=== PATIENT | female | born 2000 | race Caucasian/White ===

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

== ENCOUNTER 2021-07-12 13:15 | Outpatient (CLI) | payer OTHER, SELFPAY ==
--- NOTE | 2021-07-12 13:22 | CT_ITS ---
STUDY: CT SOFT TISSUE NECK WITH CONTRAST REASON FOR EXAM: Female, 21 years old. History of bilateral neck swelling. Difficulty swallowing. RADIATION DOSAGE (If Supplied By Facility): CTDIvol = ( 20.81 ) mGy, DLP = ( 530.33 ) mGycm TECHNIQUE: The patient was scanned in a multi-detector CT scanner. High resolution transaxial imaging was performed following intravenous administration of IV 100mL Isovue-300. Sagittal and coronal images were reconstructed. Individualized dose optimization techniques were used for this CT. COMPARISON: None. FINDINGS: Normal bilateral parotid glands. Normal bilateral rn telehealth spaces. Normal bilateral parapharyngeal spaces. Normal bilateral carotid spaces. Small benign appearing submandibular lymph nodes. Normal bilateral sublingual and submandibular glands and spaces. Normal visualized nasopharynx. Normal retropharyngeal space. Normal perivertebral space. Normal visualized bilateral faucial tonsils. The visualized tongue, tongue base and oropharynx are normal. The visualized cervical lymph nodes (levels I-) are within normal size limits, and maintain normal morphology. There is no demonstrated solid or cystic mass lesion. There is no abnormal contrast enhancement. Normal epiglottis, bilateral vallecula and hypopharynx. The pre-epiglottic and paraglottic adipose spaces are normal. Normal visualized bilateral piriform sinuses, aryepiglottic folds, vocal cords, and arytenoid-cricoid articulations. Normal subglottic trachea. Normal bilateral lobes of the thyroid gland. Normal visualized pulmonary apices. Normal visualized paranasal sinuses. Normal visualized cervical spine. CT/Soft Tissue Neck WITH Contrast IMPRESSION: Normal enhanced CT examination of the soft tissues of the neck. Electronically Signed: Yazan Washington MD at 13:48 EDT ,
== END 2021-07-12 23:59 | disposition home or self-care (01) ==
LOC: CT 13:19
PROVIDERS: PCP Family Medicine; Referring Provider Otolaryngology; Visit Provider Otolaryngology
DX: R22.1 Localized swelling, mass and lump, neck (principal)
CPT/HCPCS: 70491; Q9967

== ENCOUNTER → 2021-09-15 | Outpatient (CLI) | payer OTHER, SELFPAY ==
[2021-09-15 15:29] LABS: Absolute Lymphocyte Count 0.99 X10^3/uL (0.83-4.51); Absolute Neutrophil Count 3.7 X10^3/uL (2.0-7.7); Basophil# 0.03 X10^3/uL; Basophil% 0.5 % (0-1); Eosinophil# 0.22 X10^3/uL; Hematocrit 40.8 % (37-47); Hemoglobin 13.7 g/dL (12.0-15.0); Lymphocyte # 0.99 X10^3/ul (0.83-4.51); Mean Corp Hgb Conc 33.6 g/dL (32-36); Mean Corpuscular Hgb 30.6 pg (27.0-32.0); Mean Corpuscular Volume 91.3 fL (81-99); Mean Platelet Vol. 10.8 fl (6.2-12.0); Monocyte# 0.54 X10^3/uL; Monocyte% 9.8 % (0-10); NRBC Flagged by Analyzer 0 % (0-5); Neutrophil # 3.71 X10^3/uL (2.7-7.7); Neutrophil % 67.3 % (47-70); Platelet Count 248 K/mm3 (150-450); RBC Distribution Width SD 40.2 fl (35.1-43.9); Red Blood Count 4.47 M/mm3 (4.2-5.4); White Blood Count 5.5 K/mm3 (4.4-11.0)
== END | disposition home or self-care (01) ==
LOC: MTLAB 11:32
PROVIDERS: PCP Family Medicine; Referring Provider Family Medicine; Visit Provider Family Medicine
DX: K64.9 Unspecified hemorrhoids (principal)
CPT/HCPCS: 36415; 85025

== ENCOUNTER 2021-09-19 03:24 | Emergency (ER) | payer OTHER, SELFPAY ==
[2021-09-19 03:26] VITALS: BP 142/86; PULSE 140; RESP 24; TEMP 39.1; O2SAT 95; BMI 35.4
[2021-09-19 03:32] VITALS: BP 122/75; PULSE 142; RESP 22; TEMP 38.8; O2SAT 95
--- NOTE | 2021-09-19 03:44 | EKG12_ITS ---
Test Reason : TACHYCARDIA Blood Pressure : / mmHG Vent. Rate : 128 BPM Atrial Rate : 128 BPM P-R Int : 124 ms QRS Dur : 084 ms QT Int : 290 ms P-R-T Axes : 052 048 -28 degrees QTc Int : 423 ms Sinus tachycardia T wave abnormality, consider inferior ischemia T wave abnormality, consider anterolateral ischemia Abnormal ECG Confirmed by KENAN HART, LEXII ([id number]), scientific editor CHRISTINE VALDEZ ([id number]) on 09/21/2021 1:15:21 PM Referred By: ALANIS Confirmed By:LEXII GRAYSON MD
--- NOTE | 2021-09-19 03:47 | EX.ED.DYSGE1 ---
HPI History of Present Illness Chief Complaint: Fever Informant: patient and parent Narrative Narrative: Patient comes in with chief complaint of cough fever and increased heart rate. Patient states she has had cough with bringing up a little bit of PHLEGM for about a month. No hemoptysis. She has not been sick. Because of this cough, she has had 3 COVID test this week all of which have been negative. Her most recent was just yesterday. She does have vaccine and booster. No known exposures. She has had no travel surgery immobilization personal or family history of DVT or PE. She is not having chest pain or dyspnea despite her cough. She is on oral contraceptive. No leg pain or swelling. She did just take Tylenol at home about 30 years or so minutes ago. She admits she has not been drinking a lot. Her fever is really just occurred in the last 1 to 2 days. She states the volume of urine she has had is down for the last day likely because she was not drinking much. It also funk slightly. No flank pain. [facility] Medical History Abdominal pain Anxiety Congenital sucrase-isomaltase deficiency IBS (irritable bowel syndrome) Injury of head and neck Non-smoker Physical exam, pre-employment Seizure disorder Wears contact lenses Wears glasses Home Medications dicyclomine 10 mg capsule 20 mg PO BID PRN cap 09/30/20 [History Last Taken Unknown] drospirenone 3 mg-ethinyl estradiol 0.02 mg tablet 1 tab PO DAILY 09/30/20 [History Last Taken Unknown] polyethylene glycol 3350 17 gram/dose oral powder 17 g PO DAILY 09/30/20 [History Last Taken Unknown] sacrosidase 8,500 unit/mL oral solution 2 ml PO 6XD 09/30/20 [History Last Taken Unknown] levofloxacin 500 mg PO DAILY #10 tab 09/19/21 [Rx Last Taken Unknown] Allergy/AdvReac Type Severity Reaction Status Date / Time No Known Allergies Allergy Verified 11/06/20 06:30 Family History Grandfather Cancer COPD (chronic obstructive pulmonary disease) Asthma Diabetes Grandmother Cancer CAD (coronary artery disease) Hypertension Mother Cancer cervical precancerous cells Social History Smoking Status: Never smoker alcohol intake: never ROS ROS ED Constitutional Constitutional ED: Reports chills, fever(s) and subjective; Denies weight loss Eyes Eyes: Denies blurry vision ENT ENT ED: Denies rhinorrhea or sore throat Cardiovascular Cardiovascular: Reports racing heartbeat; Denies chest pain Respiratory/Chest Respiratory/Chest: Reports cough Gastrointestinal Gastrointestinal: Denies abdominal pain, nausea or vomiting Genitourinary Genitourinary ED: Reports dysuria and other Details: See history of present Musculoskeletal Musculoskeletal: Denies myalgias Integumentary Denies rash Neurologic Neurologic: Denies headache(s) or weakness Endocrine Endocrinology: Denies polydipsia or polyuria Allergic/Immunologic Allergic/Immunologic ED: Denies urticaria EXAM Physical Exam Const Vital Signs: 09/19/21 03:26 09/19/21 03:31 09/19/21 03:32 Temperature 102.3 F H 102 F H Temperature Source Oral Oral Pulse Rate 140 H 142 H Respiratory Rate 24 H 22 H Respiratory Effort Normal Non-Labored Respiratory Pattern Normal Blood Pressure 142/86 H 122/75 H Blood Pressure Mean 104 90 Pulse Ox 95 95 Oxygen Delivery Method Room Air Room Air 09/19/21 04:36 09/19/21 06:39 Temperature 98.9 F 98.9 F Temperature Source Oral Oral Pulse Rate 115 H 101 H Respiratory Rate 18 18 Respiratory Effort Respiratory Pattern Blood Pressure 112/70 107/70 Blood Pressure Mean 84 82 Pulse Ox 96 97 Oxygen Delivery Method Room Air Room Air Positive well nourished and well developed General Appearance ED: well developed and NAD; Negative for cyanotic or diaphoretic HEENT Reports dry mucous membranes Mouth ED: Yes dry mucous membranes Mouth: dry mucous membranes Eyes General Eye ED: Negative for pale conjunctiva or scleral icterus Neck no JVD Chest Wall inspection of chest normal Resp normal respiratory effort and clear to auscultation bilaterally Effort and Inspection: Negative for pain with movement Auscultation: Negative for rales, rhonchi or wheezes Cardio Rate: tachycardic GI normal to inspection, nondistended, normoactive bowel sounds and non-tender Palpation: soft Back/Spine no CVA tenderness Extremity normal to inspection Extremity Narrative: No cords, distended veins or asymmetry. No tenderness along the deep venous system General Extremety ED: Negative for edema or tenderness General Extremity: Negative for edema Neuro oriented x3 Sensorium / Orientation: alert Psych mental status grossly normal Skin no rashes or lesions noted and no wounds MDM MDM MDM Narrative Medical decision making narrative: Patient CBC is overall normal. Electrolytes are essentially unremarkable. Troponin is normal. Lactate is normal. Urine shows few leukocyte Estrace but no white cells. I do not think this is likely the cause of her fever. Patient was given Tylenol and IV fluids here. Her heart rates down to about 100 1005. She feels better. I talk with her about options. I am concerned because she has had a month of coughing. She is not really bringing up sputum. She does travel about 3 to 3-1/2 hours to school. She is on control. We did a CTA. This does not show pulmonary embolus but did show a masslike area of consolidation in the left lower lobe. There is a also some enlarged lymph nodes and questionable lymph node versus thymic mass. It was thought that this very well could be pneumonia but a mass or malignancy including lymphoma or germ cell tumor is not completely excluded. 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 They had evidently done stents for evaluation of the thyroid and thyroid scan along with blood work. Everything ended up normal. I explained to the patient and her father that with her fever cough and this finding we will treat for pneumonia. However, one of the most important parts of her visit is going to be follow-up. They need to make sure that the findings on the scan resolved with treatment. If not they need to look further as a malignancy or other process is not ruled out by the studies. Again I stated that even if she resolves and feels better she needs to 100% follow-up. They have a good primary physician that they can see. They will call this week. Lab Data Attestation: I reviewed the patient's lab results. Labs: Laboratory Results - last 24 hr 09/19/21 09/19/21 09/19/21 03:38 03:38 03:38 WBC 7.6 RBC 4.45 Hgb 13.7 Hct 39.7 MCV 89.2 MCH 30.8 MCHC 34.5 RDW Std Deviation 38.4 RDW Coeff of Etta 11.9 Plt Count 233 MPV 10.3 Immature Gran % (Auto) 0.300 Neut % (Auto) 69.3 Lymph % (Auto) 17.2 L Antelope % (Auto) 12.8 H Eos % (Auto) 0.1 Baso % (Auto) 0.3 Absolute Neuts (auto) 5.3 Absolute Lymphs (auto) 1.31 Nucleated RBC % 0 Sodium 136 Potassium 3.6 Chloride 104 Carbon Dioxide 24.0 Anion Gap 8 BUN 12 Creatinine 0.86 Estim Creat Clear Calc 97.68 Est GFR (MDRD) Af Amer 107 Est GFR (MDRD) Non-Af 89 BUN/Creatinine Ratio 13.9 Glucose 119 H Lactic Acid 0.9 Calcium 9.0 Troponin I High Sens 8 Urine Color Urine Clarity Urine pH Ur Specific [place] Urine Protein Urine Glucose (UA) Urine Ketones Urine Occult Blood Urine Nitrite Urine Bilirubin Urine Urobilinogen Ur Leukocyte Esterase Urine RBC Urine WBC Ur Squamous Epith Cells Urine Bacteria Urine Mucus 09/19/21 04:05 WBC RBC Hgb Hct MCV MCH MCHC RDW Std Deviation RDW Coeff of Etta Plt Count MPV Immature Gran % (Auto) Neut % (Auto) Lymph % (Auto) Antelope % (Auto) Eos % (Auto) Baso % (Auto) Absolute Neuts (auto) Absolute Lymphs (auto) Nucleated RBC % Sodium Potassium Chloride Carbon Dioxide Anion Gap BUN Creatinine Estim Creat Clear Calc Est GFR (MDRD) Af Amer Est GFR (MDRD) Non-Af BUN/Creatinine Ratio Glucose Lactic Acid Calcium Troponin I High Sens Urine Color Yellow Urine Clarity Clear Urine pH 7.0 Ur Specific [place] 1.015 Urine Protein 30 H Urine Glucose (UA) Normal Urine Ketones 5 H Urine Occult Blood 250 H Urine Nitrite Negative Urine Bilirubin Negative Urine Urobilinogen 1 H Ur Leukocyte Esterase 100 H Urine RBC 5-10 SEEN Urine WBC 0-5 SEEN Ur Squamous Epith Cells 0-5 SEEN Urine Bacteria 2+ Urine Mucus 0 SEEN Radiography Diagnostic Testing: Clinical Impression(s) from Imaging Studies Chest X-Ray 09/19/21 04:20 IMPRESSION: Normal chest x-ray. Electronically Signed: Cindy Cash MD at 5:03 EDT , Chest CTA 09/19/21 05:14 IMPRESSION: No evidence of pulmonary emboli. Masslike consolidation in the left lower lobe and adjacent smaller nodules possible pneumonia. Mass/malignancy is not excluded. Mediastinal and hilar adenopathy may be reactive, largest anterior mediastinal mass 2 cm mass. Other etiologies such as lymphoma, germ cell tumor not excluded. Electronically Signed: Cindy Cash MD at 6:32 EDT , Discharge Plan Triage Chief Complaint: Fever ED Provider: Jose R Andino Dx/Rx/DC Orders Clinical Impression: Pneumonia, Pulmonary mass Instructions: ED Pneumonia (Adult) Prescriptions: New levofloxacin [levofloxacin] 500 MG tablet 500 mg PO DAILY Qty: 10 RF: 0 No Action Sucraid 8,500 unit/mL solution 2 ml PO 6XD RF: 0 drospirenone-ethinyl estradiol [MORA (28)] 3-0.02 mg tablet 1 tab PO DAILY RF: 0 dicyclomine 10 mg capsule 20 mg PO BID PRN (Reason: IBS) RF: 0 polyethylene glycol 3350 [Miralax] 17 gram/dose powder 17 g PO DAILY RF: 0 Primary Care Provider: Pj Gregory Referrals: Pj Gregory MD [Primary Care Provider] - 1 Week Activity Restrictions/Additional Instructions: Call your doctor this week for follow-up. Even if you I have resolved symptoms, it is mandatory that you follow-up for repeat evaluation. There will likely be repeat imaging needed to recheck the changes seen on CAT scan. Disposition Disposition: Home, Self Care
[2021-09-19] MEDS: Ibuprofen 200 MG Tablet 400 MG PO (03:51)
[2021-09-19 03:58] LABS: Absolute Lymphocyte Count 1.31 X10^3/uL (0.83-4.51); Absolute Neutrophil Count 5.3 X10^3/uL (2.0-7.7); Basophil# 0.02 X10^3/uL; Basophil% 0.3 % (0-1); Eosinophil# 0.01 X10^3/uL; Eosinophils% 0.1 % (0-5); Hematocrit 39.7 % (37-47); Hemoglobin 13.7 g/dL (12.0-15.0); Lymphocyte # 1.31 X10^3/ul (0.83-4.51); Lymphocyte % 17.2 % (19-41); Mean Corp Hgb Conc 34.5 g/dL (32-36); Mean Corpuscular Hgb 30.8 pg (27.0-32.0); Mean Corpuscular Volume 89.2 fL (81-99); Mean Platelet Vol. 10.3 fl (6.2-12.0); Monocyte# 0.97 X10^3/uL; Monocyte% 12.8 % (0-10); NRBC Flagged by Analyzer 0 % (0-5); Neutrophil # 5.27 X10^3/uL (2.7-7.7); Neutrophil % 69.3 % (47-70); Platelet Count 233 K/mm3 (150-450); RBC Distribution Width CV 11.9 % (11.6-14.6); RBC Distribution Width SD 38.4 fl (35.1-43.9); Red Blood Count 4.45 M/mm3 (4.2-5.4); White Blood Count 7.6 K/mm3 (4.4-11.0)
[2021-09-19 04:15] LABS: Mucous, Urine 0 SEEN /hpf (<or=2+)
--- NOTE | 2021-09-19 04:20 | RAD_ITS ---
STUDY: X-RAY CHEST REASON FOR EXAM: Female, 21 years old. cough TECHNIQUE: PA and lateral. COMPARISON: None. FINDINGS: LUNGS: No consolidation. No pneumothorax. MEDIASTINUM: Unremarkable. CARDIAC SILHOUETTE: Not enlarged. BONES AND SOFT TISSUES: No acute abnormalities. RAD/Chest PA and Lateral IMPRESSION: Normal chest x-ray. Electronically Signed: Cindy Cash MD at 5:03 EDT ,
[2021-09-19 04:21] LABS: Color, Urine Yellow (Yellow); Glucose, Dipstick Normal (Normal); Ketone-Dipstick 5 mg/dl (Negative); Leukocyte Esterase-Dipstick 100 /ul (Negative); Nitrite-Dipstick Negative (Negative); Occult Blood-Urine 250 /ul (Negative); Protein-Dipstick 30 mg/dl (Negative); Specific Gravity, Urine 1.015 (1.002-1.030); Urine Bilirubin Dipstick Negative (Negative); Urine Clarity Clear (Clear); Urine Urobilinogen 1 mg/dl (Normal)
[2021-09-19 04:29] LABS: Bacteria 2+ /hpf (None Seen); Red Blood Cells-Urine 5-10 SEEN /hpf (0-5); Squamous Epithelial Cells - UA 0-5 SEEN /hpf (5-10); White Blood Cells 0-5 SEEN /hpf (0-5)
[2021-09-19 04:33] LABS: Anion Gap 8 (5-15); BUN 12 mg/dL (7-18); BUN/Creat Ratio 13.9 RATIO (10-20); Chloride 104 mmol/L (98-107); Creatinine, Serum 0.86 mg/dL (0.55-1.02); EST Glomerular Filtration Rate 89 mL/min (>60); Est Glom Filt Rate - Afr Amer 107 mL/min (>60); Estimated Creatinine Clearance 97.68 ml/min; Glucose 119 mg/dL (74-106); Potassium 3.6 mmol/L (3.5-5.1); Sodium Level 136 mmol/L (136-145); Troponin-I HS 8 pg/mL (3.0-54.0)
[2021-09-19 04:36] VITALS: BP 112/70; PULSE 115; RESP 18; TEMP 37.2; O2SAT 96
[2021-09-19 04:37] LABS: Lactic Acid 0.9 mmol/L (0.4-1.9)
--- NOTE | 2021-09-19 05:14 | CT_ITS ---
STUDY: CTA CHEST REASON FOR EXAM: Female, 21 years old. SOB, tachy RADIATION DOSAGE (If Supplied By Facility): CTDIvol = ( 15.00 ) mGy, DLP = ( 531.07 ) mGycm TECHNIQUE: The examination was performed with the intravenous administration of IV 100mL Isovue-370. Post-processing of the angiographic images was performed, with multiplanar reformation and 3D reconstruction. Individualized dose optimization techniques were used for this CT. COMPARISON: CT abdomen pelvis 04/29/2020. FINDINGS: LUNGS: There is a 2 x 1.6 x 2 cm masslike opacity in the left lower lobe with extensive surrounding groundglass opacity. Cluster of smaller nodules in the left lower lobe adjacent to the fissure. PLEURA: No pleural effusion. No pneumothorax. PULMONARY VESSELS: No pulmonary emboli identified. MEDIASTINUM: Enlarged lymph nodes in the mediastinum and hilar regions. The largest rounded soft tissue structure anterior mediastinum adjacent to the aortic arch 2 x 1.7 cm may be enlarged lymph node versus thymic mass. HEART: Not enlarged. AORTA/GREAT VESSELS: Thoracic aorta is normal caliber. No aneurysm or dissection. UPPER ABDOMEN: No acute findings. BONES/SOFT TISSUES: No acute findings. OTHER: None. CT/CTA Chest W/WO Contrast IMPRESSION: No evidence of pulmonary emboli. Masslike consolidation in the left lower lobe and adjacent smaller nodules possible pneumonia. Mass/malignancy is not excluded. Mediastinal and hilar adenopathy may be reactive, largest anterior mediastinal mass 2 cm mass. Other etiologies such as lymphoma, germ cell tumor not excluded. Electronically Signed: Cindy Cash MD at 6:32 EDT ,
[2021-09-19 06:39] VITALS: BP 107/70; PULSE 101; RESP 18; TEMP 37.2; O2SAT 97
[2021-09-19 07:02] VITALS: BP 113/80; PULSE 98; RESP 18; TEMP 36.7; O2SAT 98
[2021-09-19] MEDS: levoFLOXacin 750 MG Tablet PO (07:08)
== END 2021-09-19 07:55 | disposition home or self-care (01) ==
PROVIDERS: Emergency Provider Emergency Medicine; PCP Family Medicine; Visit Provider Emergency Medicine
DX: J18.9 Pneumonia, unspecified organism (principal); G40.909 Epilepsy, unspecified, not intractable, without status epilepticus; F41.9 Anxiety disorder, unspecified; K58.9 Irritable bowel syndrome, unspecified; Z79.899 Other long term (current) drug therapy; R91.8 Other nonspecific abnormal finding of lung field
CPT/HCPCS: 71046; 71275; 80048; 81001; 83605; 84484; 85025; 87040; 87086; 87088; 93005; 96360; 96361; 99285; J7030; Q9967; A4216

== ENCOUNTER → 2021-10-23 | Outpatient (CLI) | payer OTHER, SELFPAY ==
--- NOTE | 2021-10-23 09:47 | CT_ITS ---
INDICATION: f/u lung nodule EXAMINATION: CT CHEST WITHOUT CONTRAST - CT Chest W/O Contrast Injection TECHNIQUE: Helically acquired images were obtained of the chest. A radiation dose optimization technique was used for this scan. IV Contrast dosage and agent: None. COMPARISON: CT chest 09/19/2021. CT abdomen pelvis 03/28/2020. FINDINGS: LUNGS: There is minimal groundglass opacity in the left lower lobe with otherwise significantly decreased with near resolution of the masslike consolidation compared to the prior CT chest. The cluster of smaller nodules in the left lower lobe adjacent to the fissure, largest nodule 1.1 cm, not significantly changed. No new consolidation or mass. LARGE AIRWAYS: Unremarkable. PLEURA: No pleural effusion. No pneumothorax. MEDIASTINUM: The rounded soft tissue structure in the anterior mediastinum anterior to the aortic arch measures approximately 2 x 2 cm is likely related to the thymus, but the rounded margins suggest possible thymic hyperplasia or mass. This is unchanged. No other significant adenopathy, appears decreased although suboptimal without IV contrast. HEART: Not enlarged. AORTA/VESSELS: No aortic aneurysm. ESOPHAGUS: Unremarkable. with UPPER ABDOMEN: No acute findings. BONES/SOFT TISSUES: No acute abnormality. OTHER/LINES: None. CT/Chest without Contrast IMPRESSION: Near resolution of the left lower lobe masslike consolidation compared to the previous CT chest from 09/19/2021, with minimal residual groundglass opacity in the region. This likely was resolving pneumonia or other inflammatory process. Cluster of nodules in the left lower lobe adjacent to the fissure is unchanged, with largest nodule 1.1 cm. This may be postinflammatory, which is most likely in a patient of this age. Continued follow-up imaging is recommended in 3-6 months to ensure stability. Anterior mediastinal soft tissue fullness is unchanged and likely related to the thymus, possibly thymic hyperplasia cannot entirely exclude thymic mass. This could be further evaluated on follow-up CT, or MRI may be helpful. Electronically Signed: Cindy Cash MD at 4:11 EDT ,
== END | disposition home or self-care (01) ==
LOC: CT 09:46
PROVIDERS: PCP Family Medicine; Referring Provider Internal Medicine Critical Care Medicine; Visit Provider Internal Medicine Critical Care Medicine
DX: R91.1 Solitary pulmonary nodule (principal)
CPT/HCPCS: 71250

== ENCOUNTER → 2021-10-29 | Outpatient (CLI) | payer OTHER, SELFPAY ==
[2021-11-04 17:27] LABS: Gonococcus By Nucleic Acid AMP Negative (Negative)
== END | disposition home or self-care (01) ==
LOC: LABSPEC 11:26
PROVIDERS: PCP Family Medicine; Visit Provider Obstetrics & Gynecology
DX: Z11.3 Encounter for screening for infections with a predominantly sexual mode of transmission (principal)
CPT/HCPCS: 87491; 87591

== ENCOUNTER → 2022-04-05 | Outpatient (CLI) | payer OTHER, SELFPAY ==
--- NOTE | 2022-04-05 13:29 | CT_ITS ---
STUDY: CT CHEST WITHOUT CONTRAST REASON FOR EXAM: Female, 21 years old. Lung Nodule RADIATION DOSAGE (If Supplied By Facility): CTDIvol = ( 16.43 ) mGy, DLP = ( 611.86 ) mGycm TECHNIQUE: Transaxial imaging was performed without the administration of intravenous contrast material. Multiplanar coronal and sagittal images were reformatted. Individualized dose optimization techniques were used for this CT. COMPARISON: Comparison is made with prior study dated 10/23/2021. FINDINGS: CHEST Stable small benign appearing bilateral axillary lymph nodes. Persistent nodular densities in the anterior lateral aspect of the left lower lobe abutting the pleural surface as well as the left major fissure. The dominant nodule as increase in size as compared to prior study. It presently measures 13.6 mm x 14.2 mm. There is no demonstrated pleural abnormality. Normal heart and pericardium. Normal mediastinum. Stable appearance of the thymus remnant. Normal hilar regions. Normal unenhanced pulmonary arteries. Normal aorta arch and descending thoracic aorta. Normal osseous structures. There is no demonstrated abnormality of the visualized upper abdomen. CT/Chest without Contrast IMPRESSION: Persistent nodular density seen in the anterior lateral aspect of the left lower lobe abutting the left major fissure. The dominant nodular density has increased in size presently measuring 13.6 mm x 14.2 mm. Electronically Signed: Yazan Washington MD at 14:09 EST ,
== END | disposition home or self-care (01) ==
LOC: CT 13:28
PROVIDERS: PCP Family Medicine; Visit Provider Internal Medicine Critical Care Medicine
DX: R91.1 Solitary pulmonary nodule (principal)
CPT/HCPCS: 71250

== ENCOUNTER → 2022-04-21 | Outpatient (CLI) | payer OTHER, SELFPAY ==
[2022-04-21 15:39] LABS: Hematocrit 40.4 % (37-47); Hemoglobin 14.1 g/dL (12.0-15.0); Mean Corp Hgb Conc 34.9 g/dL (32-36); Mean Corpuscular Hgb 31.3 pg (27.0-32.0); Mean Corpuscular Volume 89.6 fL (81-99); Mean Platelet Vol. 11.2 fl (6.2-12.0); Platelet Count 303 K/mm3 (150-450); RBC Distribution Width CV 12.3 % (11.6-14.6); RBC Distribution Width SD 40.2 fl (35.1-43.9); Red Blood Count 4.51 M/mm3 (4.2-5.4); White Blood Count 4.2 K/mm3 (4.4-11.0)
[2022-04-21 16:11] LABS: Anion Gap 7 (5-15); BUN 18 mg/dL (7-18); BUN/Creat Ratio 21.7 RATIO (10-20); Calcium,Total 9.2 mg/dL (8.5-10.1); Chloride 108 mmol/L (98-107); Cholesterol 147 mg/dL (200); Creatinine, Serum 0.83 mg/dL (0.55-1.02); EST Glomerular Filtration Rate 92 mL/min (>60); Est Glom Filt Rate - Afr Amer 112 mL/min (>60); Glucose 90 mg/dL (74-106); High Density Lipoprotein 54 mg/dL; Potassium 4.5 mmol/L (3.5-5.1); Sodium Level 140 mmol/L (136-145); Thyroid Stim Hormone (TSH) 1.26 uIU/mL (0.358-3.74); Triglycerides 91 mg/dL; Very Low Density Lipoprotein 18 mg/dL (5-40)
== END | disposition home or self-care (01) ==
LOC: MTLAB 11:25
PROVIDERS: PCP Family Medicine; Referring Provider Family Medicine; Visit Provider Family Medicine
DX: Z00.00 Encounter for general adult medical examination without abnormal findings (principal); R53.83 Other fatigue
CPT/HCPCS: 36415; 80048; 80061; 84443; 85027

== ENCOUNTER → 2022-05-11 | Outpatient (CLI) | payer OTHER, SELFPAY ==
--- NOTE | 2022-05-11 08:00 | PET_ITS ---
EXAMINATION: FDG PET-CT INDICATIONS: A 21-year-old female with history of pulmonary nodularity. COMPARISON EXAMINATION: CT of the chest report dated 04/05/22 INDEX LESION SIZE SUV INTERPRETATION Left lower lung, left lower lobe 25.2-mm 1.8 Quantitative criteria for viable neoplasm are not fulfilled Left thoracic perihilum, subcarinal mediastinum 16.4-mm (largest) 4.1 (max) May necessitate histopathologic investigation secondary to the quantitative degree of uptake Pancreatic head-uncinate process 33.5 x 23.4-mm 3.[address] of the abdomen and pelvis with oral and intravenous contrast to confirm the presence of morphologic abnormality Left hemipelvis 15.4-mm 6.9 Fulfills quantitative criteria for viable neoplasm, histopathologic analysis may be indicated NON-INDEX LESION SIZE SUV INTERPRETATION V-shaped anterior mediastinum 2.3 Most consistent with normal thymus physiologic tracer activity TECHNIQUE: Following the intravenous administration of 13.29 mCi of F-18 deoxyglucose via the right antecubital fossa, multiplanar image acquisitions of the neck, chest, abdomen and pelvis to level of mid thigh, obtained at one hour post radiopharmaceutical administration contemporaneously interpreted with the current CT of the neck, chest, abdomen and pelvis, to level of mid thigh, dated 05/11/[address] of the chest report dated 04/05/22 reveals: BLOOD GLUCOSE LEVEL:?? 81 mg/dl?HEIGHT:?66 inches?WEIGHT: 218 lbs. FINDINGS: Head/Neck: There is no evidence of abnormal increased glucose metabolism in the pharyngeal mucosal space, parapharyngeal space, bilateral-lateral and anterior neck, hypopharynx and distribution of the laryngeal structures. The visualized portion of the cerebral cortical-subcortical structures demonstrate symmetric and preserved glucose metabolism. CHEST: Enhanced FDG uptake is noted in the left lower lung field, left lower lobe generating a calculated maximal standard uptake value of 1.8. The maximal axial diameter of the metabolic, morphologic abnormality is 25.2-mm. Facilitated FDG uptake is noted in the left thoracic perihilum and subcarinal mediastinum and involving lymph node stations 7 and 10L, respectively. The calculated maximal standard uptake value is 4.1. The maximal axial diameter of the metabolic, morphologic abnormality is 16.4-mm. An inverted V-shape increase in uptake is noted in the anterior mediastinum with a calculated maximal standard uptake value of 2.3, most consistent with visualized visualization of thyroid tissue. (Yony Slade, Clinical Positron Emission Tomography, [employer], [place], [place] 2001). Prominent radiopharmaceutical concentration is identified in the left ventricular myocardium commensurate with the [place]. Pertinent chest CT findings are as follows. Bilateral axillary soft tissue densities are non-glucose avid. Additional parenchymal densities-nodules are defined in the bilateral hemithorax expressing increased FDG uptake. Abdomen/Pelvis: There is an increase in radiopharmaceutical concentration appearing evident in the right upper abdomen in the region of the pancreatic head-uncinate process. The calculated maximal standard uptake value is 3.0. The maximal axial diameter of the visualized metabolic, morphologic abnormality is approximately 33.5-mm (transverse) x 23.4-mm (AP). Facilitated FDG uptake is noted in the left hemipelvis in the region of the internal iliac lymph node basin. The calculated maximal standard uptake value is 6.9. The maximal axial diameter is 15.4-mm. Normal physiologic distribution of the radiopharmaceutical is apparent in the hepatic (3.9) and splenic parenchyma, both renal units, bladder and visualized intestinal tract. Pertinent abdomen and pelvis CT findings are as follows. An intrauterine contraceptive device is defined. Right-left inguinal soft tissue densities are non-glucose avid. Skeletal: There are no well-defined sclerotic-lytic changes manifest on review of the appendicular-axial skeletal structures. PET/PET/CT Tumor Base -Thigh Init IMPRESSION: 1. The increase in FDG concentration defined in the left lower lung, left lower lobe does not fulfill quantitative criteria for viable neoplasm with single point technique. (Landers et al, Annals of Internal Medicine, 138:724, 2003). 2. Metabolic and/or anatomic stability may be ensured in the left hemithorax pulmonary parenchymal abnormality with repeat FDG PET-CT and/or CT of the thorax in 3-6 months if clinically indicated. (Xiu, Journal of Nuclear Medicine 45:88, P2004 Darian, Seminars in Thoracic and Cardiovascular Surgery 14:292, 2002). 3. Increased radiopharmaceutical concentration noted in the left thoracic perihilum and subcarinal mediastinum may warrant histopathologic investigation if clinical indicated secondary to the quantitative degree of uptake. 4. Facilitated uptake manifest in the V-shaped anterior mediastinum does not fulfill quantitative criteria for neoplasia and most likely represents thymus concentration of the radiopharmaceutical (Yony Slade, Clinical Positron Emission Tomography, [employer], [place], [place] 2001). 5. Enhanced tracer uptake noted in the region of the pancreatic head uncinate process warrants further investigation with CT of the abdomen and pelvis with oral and intravenous contrast secondary to the quantitative degree of uptake. 6. Accentuated glucose metabolism manifest in the left hemipelvis in the internal iliac lymph node basin fulfills quantitative criteria for viable neoplasm with single point technique. Histopathologic analysis may be indicated. Electronic Signature Dinesh Hernández D.O. Accurate Quantification of SUVs for this report are calculated using the exclusive [employer] Technology. ([place]. Patent No. [id number] [id number] B2 [phone] [place] patent [phone]). Standardization and correction of the FDG SUV metric via ACCUQUAN technology allow for vendor non-specific objective quantitative examination comparison and optimization of the sensitivity and specificity of the FDG PET-CT examination. Electronically Signed: Dinesh Hernández, at 18:33 EST ,
== END | disposition home or self-care (01) ==
PROVIDERS: PCP Family Medicine; Referring Provider Internal Medicine Critical Care Medicine; Visit Provider Internal Medicine Critical Care Medicine
DX: R91.1 Solitary pulmonary nodule (principal)
CPT/HCPCS: 78815; A9552

== ENCOUNTER → 2022-05-17 | Outpatient (CLI) | payer OTHER, SELFPAY ==
--- NOTE | 2022-05-17 12:44 | CT_ITS ---
STUDY: CT ABDOMEN AND PELVIS WITH CONTRAST REASON FOR EXAM: Female, 21 years old. Abnormal pet scan. Pancreatic abnormality. RADIATION DOSAGE (If Supplied By Facility): CTDIvol = ( 22.91 ) mGy, DLP = ( 1168.25 ) mGycm TECHNIQUE: Transaxial images were obtained from the dome of the diaphragm to the symphysis pubis with oral contrast. Oral and amp; IV Readi-CAT and amp; 100mL Isovue-300 was administered. Sagittal and coronal images were reconstructed. Individualized dose optimization techniques were used for this CT. COMPARISON: Comparison is made with prior CT scan abdomen and pelvis dated 03/28/[address] scan of the chest dated 04/05/2022. FINDINGS: Stable 1.3 cm noncalcified nodule in the peripheral lateral aspect of the left lower lobe. The visualized portions of the heart are within normal limits. Normal liver. Normal gallbladder and extrahepatic biliary system. Normal spleen. Normal pancreas. Normal bilateral adrenal glands. Normal right kidney. Normal left kidney. Normal visualized stomach. Normal small intestine. Scattered sigmoid diverticula. The appendix is visualized and appears normal. Normal abdominal aorta. Normal inferior vena cava. There is borderline retroperitoneal lymphadenopathy with enlarged nodes no greater than 10mm in the short axis diameter. Normal urinary bladder. IUD is seen in the uterus. Normal abdominal wall. Normal osseous structures. CT/Abdomen/Pelvis WITH Contrast IMPRESSION: Stable 1.3 cm noncalcified nodule in the peripheral lateral aspect of the left lower lobe. Scattered sigmoid diverticula. IUD is seen within the uterus. Electronically Signed: Yazan Washington MD at 14:41 EST ,
== END | disposition home or self-care (01) ==
LOC: CT 12:43
PROVIDERS: PCP Family Medicine; Visit Provider Family Medicine
DX: R93.3 Abnormal findings on diagnostic imaging of other parts of digestive tract (principal)
CPT/HCPCS: 74177; Q9967

== ENCOUNTER → 2022-07-15 | Outpatient (CLI) | payer OTHER, SELFPAY ==
[2022-07-15 10:15] LABS: Absolute Lymphocyte Count 1.77 X10^3/uL (0.83-4.51); Absolute Neutrophil Count 3.7 X10^3/uL (2.0-7.7); Basophil# 0.03 X10^3/uL; Basophil% 0.5 % (0-1); Eosinophil# 0.11 X10^3/uL; Eosinophils% 1.8 % (0-5); Hematocrit 39.9 % (37-47); Hemoglobin 13.7 g/dL (12.0-15.0); Lymphocyte # 1.77 X10^3/ul (0.83-4.51); Lymphocyte % 28.3 % (19-41); Mean Corp Hgb Conc 34.3 g/dL (32-36); Mean Corpuscular Hgb 30.5 pg (27.0-32.0); Mean Corpuscular Volume 88.9 fL (81-99); Mean Platelet Vol. 10.7 fl (6.2-12.0); Monocyte# 0.58 X10^3/uL; Monocyte% 9.3 % (0-10); NRBC Flagged by Analyzer 0 % (0-5); Neutrophil # 3.74 X10^3/uL (2.7-7.7); Neutrophil % 59.8 % (47-70); Platelet Count 263 K/mm3 (150-450); RBC Distribution Width SD 38.5 fl (35.1-43.9); Red Blood Count 4.49 M/mm3 (4.2-5.4); White Blood Count 6.3 K/mm3 (4.4-11.0)
[2022-07-15 10:21] LABS: Erythrocyte Sedimentation Rate 10 mm/hr (0-30)
[2022-07-15 10:46] LABS: ALB/GLOB Ratio 1.1 RATIO (0.9-2.4); AST(SGOT) 22 U/L (15-37); Alanine Aminotransfer ALT/SGPT 52 U/L (13-56); Albumin, Serum 3.9 g/dL (3.2-5.0); Alkaline Phosphatase 76 U/L (45-117); Anion Gap 9 (5-15); BUN 12 mg/dL (7-18); BUN/Creat Ratio 16.8 RATIO (10-20); CRP 5.01 mg/L (0.0-3.0); Calcium,Total 9.1 mg/dL (8.5-10.1); Chloride 107 mmol/L (98-107); Creatinine, Serum 0.72 mg/dL (0.55-1.02); EST Glomerular Filtration Rate 109 mL/min (>60); Est Glom Filt Rate - Afr Amer 132 mL/min (>60); GGTP 26 U/L (5-55); Globulin 3.4 g/dL (2.2-4.2); Glucose 105 mg/dL (74-106); LDH 187 U/L (84-246); Potassium 3.8 mmol/L (3.5-5.1); Protein, Total 7.3 g/dL (6.4-8.2); Sodium Level 140 mmol/L (136-145)
[2022-07-15 11:42] LABS: Insulin 38.1 mU/L (2.6-37.6)
[2022-07-18 16:09] LABS: Endomysial Antibody IgA Negative (Negative)
[2022-07-18 17:44] LABS: Immunoglobulin A 144 mg/dL (87-352); t-Transglutaminase IgA <2 U/mL (0-3)
[2022-07-18 18:07] LABS: Albumin 3.9 g/dL (2.9-4.4); Alpha-1-Globulins 0.2 g/dL (0.0-0.4); Alpha-2-Globulins 0.9 g/dL (0.4-1.0); Cytoplasmic Ab (C-ANCA) <1:20 titer (Neg:<1:20); Gamma Globulin 0.9 g/dL (0.4-1.8); IgG, Quant 770 mg/dL (586-1602); Immunoglobulin A 138 mg/dL (87-352); Immunoglobulin E 71 IU/mL (6-495); Immunoglobulin G, Subclass 1 394 mg/dL (248-810); Immunoglobulin G, Subclass 2 268 mg/dL (130-555); Immunoglobulin G, Subclass 3 42 mg/dL (15-102); Immunoglobulin G, Subclass 4 15 mg/dL (2-96); Immunoglobulin M 98 mg/dL (26-217); PROEL- TOTAL PROTEIN 6.8 g/dL (6.0-8.5)
[2022-07-18 20:08] LABS: AFP, Tumor Marker < 1.8 ng/mL (0.0-4.7); Carbohydrate AG 19-9 13 U/mL (0-35); Gastrin, Serum 12 pg/mL (0-115); Perinuclear Ab (P-ANCA) <1:20 titer (Neg:<1:20)
[2022-07-19 13:08] LABS: Anti-Centromere B Ab <0.2 AI (0.0-0.9); Anti-Chromatin <0.2 AI (0.0-0.9); Anti-Jo <0.2 AI (0.0-0.9); Anti-Scleroderma-70 AB <0.2 AI (0.0-0.9); RNP Ab <0.2 AI (0.0-0.9); SJOGREN'S Anti-SS-A test < 0.2 AI (0.0-0.9); SJOGREN'S Anti-SS-B test < 0.2 AI (0.0-0.9); Smith Ab <0.2 AI (0.0-0.9)
[2022-07-19 16:31] LABS: Anti-dsDNA Ab <1 IU/mL (0-9)
== END | disposition home or self-care (01) ==
LOC: LAB 09:48
PROVIDERS: PCP Family Medicine; Referring Provider Internal Medicine Gastroenterology; Visit Provider Internal Medicine Gastroenterology
DX: K86.89 Other specified diseases of pancreas (principal); E74.31 Sucrase-isomaltase deficiency; R94.8 Abnormal results of function studies of other organs and systems
CPT/HCPCS: 36415; 80053; 82105; 82784; 82785; 82787; 82941; 82977; 83516; 83525; 83615; 84165; 84681; 85025; 85652; 86140; 86225; 86235; 86255; 86256; 86301; 86334

== ENCOUNTER → 2022-07-16 | Outpatient (CLI) | payer OTHER, SELFPAY ==
[2022-07-21 09:29] LABS: Calprotectin, Stool 19 ug/g (0-120)
[2022-07-26 16:34] LABS: Pancreatic Elastase, Fecal > 500 (>200)
== END | disposition home or self-care (01) ==
LOC: LABSPEC 11:49
PROVIDERS: PCP Family Medicine; Visit Provider Internal Medicine Gastroenterology
DX: E74.31 Sucrase-isomaltase deficiency (principal); R94.8 Abnormal results of function studies of other organs and systems
CPT/HCPCS: 82653; 83630; 83993

== ENCOUNTER → 2022-07-29 | Outpatient (CLI) | payer OTHER, SELFPAY ==
--- NOTE | 2022-07-29 15:49 | CT_ITS ---
INDICATION: Pancreatic Protocol , POSITIVE PET SCAN 05/11/22 WITH HOT SPOTS IN LUNG AND PANCREAS HEAD. F/U EXAMINATION: CT ABDOMEN AND PELVIS WITH AND WITHOUT CONTRAST - CT Abdomen And Pelvis WO/W Contrast Injection TECHNIQUE: Helically acquired images were obtained of the abdomen and pelvis both before and after IV contrast. A radiation dose optimization technique was used for this scan. IV Contrast dosage and agent: 100 cc of Isovue-370 Oral contrast: Redicat RADIATION DOSAGE (If Supplied By Facility): CTDIvol = ( 19.48 ) mGy, DLP = ( 2077.68 ) mGycm COMPARISON: CT of the chest dated September 19, 2021, PET/CT dated May 11, [address] of the abdomen and pelvis dated May 17, 2022 FINDINGS: LOWER CHEST: There is a stable subpleural 1.4 cm left lower lobe nodule associated with adjacent stable subcentimeter nodules. No cardiomegaly or pericardial effusion. LIVER: Homogeneous. No focal mass. GALLBLADDER AND BILIARY TREE: No calcified gallstones. No gallbladder distension or wall edema. No intra- or extrahepatic biliary ductal dilation. PANCREAS: No focal cystic or solid mass. SPLEEN: Normal size without focal cystic or solid mass. ADRENAL GLANDS: No nodules. KIDNEYS AND URETERS: Normal renal size and position. No hydronephrosis. PERITONEUM: No ascites or free air. No other fluid collection. BOWEL: No evidence of acute appendicitis. No stomach or bowel distension. No focal inflammatory change. LYMPH NODES: No enlarged mesenteric or retroperitoneal lymph nodes. VESSELS: Aorta is non-dilated. URINARY BLADDER: Unremarkable. REPRODUCTIVE ORGANS: There is an intrauterine device in place. ABDOMINAL WALL: There is a small fat-containing umbilical hernia. BONES: No lytic or blastic abnormality. CT/CT Abd/Pelvis W/WO Contrast IMPRESSION: No acute intra-abdominal process. Stable 14 mm left lower lobe pulmonary nodule. Electronically Signed: Martha Vallejo MD at 9:38 EDT ,
[2022-07-29] MEDS: DiphenhydrAMINE 50 MG/ML Syringe 25 MG IV (16:18)
[2022-07-29 16:23] VITALS: BP 135/84; PULSE 75; RESP 14; TEMP 36.5; O2SAT 98; BMI 35.5
--- NOTE | 2022-07-29 16:27 | NURSING ---
Pt presented for CT and reported urticaria and rash following last ct with iv contrast. Pt already drank oral contrast and will be travelling back to college monday in the early am. Dr. Velasco informed of the situation. Emergency premeds ordered. Pt assessed, IV started and meds given. Call light within reach. Pt denies needs. BF at bedside. CT aware of scan time of 1720.
== END | disposition home or self-care (01) ==
PROVIDERS: PCP Family Medicine; Referring Provider Internal Medicine Gastroenterology; Visit Provider Internal Medicine Gastroenterology
DX: R94.8 Abnormal results of function studies of other organs and systems (principal); E74.31 Sucrase-isomaltase deficiency
CPT/HCPCS: 74178; 96374; Q9967

== ENCOUNTER → 2022-09-06 | Outpatient (CLI) | payer OTHER, SELFPAY ==
[2022-09-05 10:47] LABS: Platelet Count 267 K/mm3 (150-450)
[2022-09-05 10:58] LABS: Partial Thromboplast Time 33.8 Seconds (24.1-36.2); Prothrombin Time (Protime)PT. 12.8 SECONDS (11.7-14.9)
[2022-09-06] VITALS (11 sets, daily range): BP systolic 101–140; BP diastolic 62–86; PULSE 74–109; RESP 10–19; TEMP 36.6; O2SAT 19–100; BMI 38.4
--- NOTE | 2022-09-06 | ASPIGT_PTH ---
PATIENT: TIMOTHY MAX LOC: [place] U#:[id number] AGE/SX: 22/F ROOM: RE09/06/[address]: Dr. Escobar Briseno DO : 2000 BED: DIS: 09/06/2022 SPEC #: [id number] RECD: 09/06/22 10:15 STATUS: JEFFRY REQ #: [id number] MAXINE: 09/06/22 00:[address]: Escobar Briseno DEPT: SURGICAL PATHOLOGY RECD BY: Tamar Lucia ENTERED: 09/06/22 12:47 SP TYPE: ASP RAD OTHR DR: Dr. Pj Gregory MD Tissues: Lung, NOS Procedures: FNA Specimen Adequacy Special Stain Group II Special Stain Group I Surgery Specimen Level IV AFB Stain (control) GMS Stain (control) Imprint (control) HEADER OPERATION: CT-guided left lung biopsy PRE-OP DIAGNOSIS: Left lung nodule TISSUE SUBMITTED: Left lung nodule 20-gauge core x5 MICROSCOPIC DIAGNOSIS Left lung nodule, CT-guided core biopsy: Lung parenchymal tissue with extensive area of necrosis, focal fibrosis and granulomatous inflammation. Negative for malignancy. See comment. BRODIE:can 09/07/2022 COMMENT The specimen is evaluated at the time of biopsy by Dr. Boo. Immediate Evaluation = Negative for malignant cells. Special stains for acid fast bacilli and fungi are negative for organisms; matched controls are appropriate. Correlation with clinical, radiologic findings and appropriate follow up are necessary. If there is high suspicion of malignancy, re-biopsy is suggested if clinically indicated. Case has been reviewed in consultation with Dr. Bruce who concurs with the above diagnosis. IDC:BRODIE MICROSCOPIC DESCRIPTION Slides are reviewed. GROSS DESCRIPTION Received is one container labeled with the patient's name and not further designated. The specimen consists of two elongated fragments of red-correa soft tissue measuring in aggregate 1.5 x 0.1 x <0.1 cm. The specimen is totally submitted in one cassette. / AM:can 09/06/2022 TC:5 CPT: 37718, 73155, 89007 x2
--- NOTE | 2022-09-06 07:42 | CT_ITS ---
PROCEDURE: CT GUIDED CORE NEEDLE BIOPSY OF A peripheral left upper lobe LUNG LESION INDICATION: Female, 22 years old. Lung Nodule PHYSICIAN: Dr. Katia Díaz CONSENT: Written informed consent was obtained having explained the risks, benefits and alternatives in detail with the patient who accepted the risks and agreed to proceed. Laboratory review and clinical assessment was performed. CONSCIOUS SEDATION PROTOCOL: The Drugs used were: 3 mg Versed, IV., and 75 mcg Fentanyl, IV. The sedation time was: 42 minutes. Conscious sedation was started and 9:15 AM and terminated at 9:57 AM. The conscious sedation protocol was independently monitored. RADIATION DOSAGE (If Supplied By Facility): CTDIvol = ( 20 ) mGy, DLP = ( 3014.82 ) mGycm Individualized dose optimization techniques were used for this CT. TECHNIQUE: The patient was placed in the prone position. A noncontrast CT was performed to localize the lesion in the peripheral aspect of the left upper lobe . The skin surface was prepped and draped in a sterile fashion. 1% lidocaine was used for local anesthesia. Using CT guidance, a 20-gauge coaxial biopsy device was advanced to the periphery of the lesion. A total of 5 core specimens were obtained. The specimens were placed in a formalin solution. A post procedure CT demonstrated no adverse sequelae or pneumothorax. The patient tolerated the procedure well without adverse event. A negative biopsy does not exclude malignancy. Further imaging or clinical followup based on patient condition and degree of clinical suspicion for malignancy. Suggest rebiopsy, if biopsy results do not match with clinical scenario. CT/Biopsy/Inj or Needle Placement IMPRESSION: 1. CT directed core needle biopsy of the peripheral left upper lobe pulmonary nodule using CT image guidance with image documentation as described. Pathology results are pending. 2. Conscious Sedation protocol utilized with independent monitoring. Electronically Signed: Yazan Washington MD at 11:13 EDT ,
[2022-09-06] MEDS: Midazolam 2 MG/2 ML Syringe IV ×2 (09:15→09:48)
[2022-09-06] MEDS: fentaNYL 100 MCG/2 ML Ampul IV ×2 (09:15→09:48)
[2022-09-06] MEDS: Lidocaine 2% (20 ml mdv) 20 ML Vial INFILT (09:43)
--- NOTE | 2022-09-06 10:10 | RAD_ITS ---
STUDY: X-RAY CHEST REASON FOR EXAM: Female, 22 years old. Lt lung bx -- Immediately post lung biopsy TECHNIQUE: AP inspiration and expiration views. COMPARISON: Comparison is made with prior examination dated September 19, 2021. FINDINGS: Status post left lung biopsy. No evidence of pneumothorax. RAD/Chest Insp/Exp 2 View IMPRESSION: No evidence of pneumothorax on the immediate post eft lung biopsy radiographs. Electronically Signed: Yazan Washington MD at 13:42 EDT ,
--- NOTE | 2022-09-06 11:30 | RAD_ITS ---
STUDY: X-RAY CHEST REASON FOR EXAM: Female, 22 years old. Lt lung biopsy -- 2 hours post lung biopsy TECHNIQUE: AP inspiration and expiration views. COMPARISON: Comparison is made with prior study done earlier today. FINDINGS: The patient is status post left lung biopsy. No evidence of pneumothorax on the 2 hour post left lung biopsy radiographs. RAD/Chest Insp/Exp 2 View IMPRESSION: No evidence of pneumothorax on the two-hour post left lung biopsy radiographs. Electronically Signed: Yazan Washington MD at 13:43 EDT ,
== END | disposition home or self-care (01) ==
PROVIDERS: PCP Family Medicine; Referring Provider Internal Medicine Critical Care Medicine; Visit Provider Internal Medicine Critical Care Medicine
DX: R91.1 Solitary pulmonary nodule (principal)
CPT/HCPCS: 32408; 36415; 71046; 77012; 85049; 85610; 85730; 88172; 88305; 88312; 88313; 99156; 99157; J7050; A4216; C2613

== ENCOUNTER → 2022-09-12 | Outpatient (CLI) | payer OTHER, SELFPAY ==
[2022-09-12 09:30] LABS: Absolute Lymphocyte Count 1.78 X10^3/uL (0.83-4.51); Absolute Neutrophil Count 3.3 X10^3/uL (2.0-7.7); Basophil# 0.03 X10^3/uL; Basophil% 0.5 % (0-1); Eosinophil# 0.11 X10^3/uL; Eosinophils% 1.9 % (0-5); Hematocrit 39.6 % (37-47); Hemoglobin 13.7 g/dL (12.0-15.0); Lymphocyte # 1.78 X10^3/ul (0.83-4.51); Lymphocyte % 30.5 % (19-41); Mean Corp Hgb Conc 34.6 g/dL (32-36); Mean Corpuscular Volume 89.6 fL (81-99); Mean Platelet Vol. 10.3 fl (6.2-12.0); Monocyte# 0.57 X10^3/uL; Monocyte% 9.8 % (0-10); NRBC Flagged by Analyzer 0 % (0-5); Neutrophil # 3.32 X10^3/uL (2.7-7.7); Platelet Count 260 K/mm3 (150-450); RBC Distribution Width CV 12.4 % (11.6-14.6); Red Blood Count 4.42 M/mm3 (4.2-5.4); White Blood Count 5.8 K/mm3 (4.4-11.0)
[2022-09-12 10:19] LABS: Insulin 26.5 mU/L (2.6-37.6)
[2022-09-12 10:54] LABS: AST(SGOT) 28 U/L (15-37); Alanine Aminotransfer ALT/SGPT 60 U/L (13-56); Albumin, Serum 3.8 g/dL (3.2-5.0); Alkaline Phosphatase 88 U/L (45-117); Anion Gap 11 (5-15); BUN 19 mg/dL (7-18); BUN/Creat Ratio 22.8 RATIO (10-20); Calcium,Total 9.3 mg/dL (8.5-10.1); Chloride 105 mmol/L (98-107); Cholesterol 153 mg/dL (200); Creatinine, Serum 0.83 mg/dL (0.55-1.02); EST Glomerular Filtration Rate 92 mL/min (>60); Est Glom Filt Rate - Afr Amer 111 mL/min (>60); Globulin 3.7 g/dL (2.2-4.2); Glucose 90 mg/dL (74-106); High Density Lipoprotein 49 mg/dL; Potassium 3.6 mmol/L (3.5-5.1); Prolactin 32.3 ng/mL; Protein, Total 7.5 g/dL (6.4-8.2); Sodium Level 140 mmol/L (136-145); T4 Free Direct 0.84 ng/dL (0.76-1.46); Thyroid Stim Hormone (TSH) 2.28 uIU/mL (0.358-3.74); Triglycerides 182 mg/dL; Very Low Density Lipoprotein 36 mg/dL (5-40)
[2022-09-13 13:08] LABS: Adrenocorticotropic Hormone 36.6 pg/mL (7.2-63.3); C-Peptide 4.4 ng/mL (1.1-4.4)
== END | disposition home or self-care (01) ==
LOC: LAB 09:00
PROVIDERS: PCP Family Medicine
DX: E24.9 Cushing's syndrome, unspecified (principal)
CPT/HCPCS: 36415; 80053; 80061; 82024; 82533; 82627; 83036; 83525; 84146; 84439; 84443; 84681; 85025; 82626

== ENCOUNTER → 2022-09-13 | Outpatient (CLI) | payer OTHER, SELFPAY ==
[2022-09-13 11:29] LABS: 24HR. Urine Creatinine 1.84 g/24 HR (0.70-1.90)
[2022-09-16 09:09] LABS: Cortisol, Free 24Ur 26 ug/24 hr (6-42); Cortisol, Urinary Free 11 ug/L (Undefined)
== END | disposition home or self-care (01) ==
LOC: LABSPEC 10:06
PROVIDERS: PCP Family Medicine
DX: E24.9 Cushing's syndrome, unspecified (principal)
CPT/HCPCS: 81050; 82530; 82570

== ENCOUNTER → 2022-11-23 | Outpatient (CLI) | payer OTHER, SELFPAY ==
[2022-11-23 10:15] LABS: Insulin 19.8 mU/L (2.6-37.6)
[2022-11-24 15:09] LABS: Adrenocorticotropic Hormone 16.4 pg/mL (7.2-63.3); Angiotensin Convert Enzyme 50 U/L (14-82); C-Peptide 3.2 ng/mL (1.1-4.4)
== END | disposition home or self-care (01) ==
PROVIDERS: PCP Family Medicine; Referring Provider Internal Medicine Gastroenterology; Visit Provider Internal Medicine Gastroenterology
DX: E74.31 Sucrase-isomaltase deficiency (principal); K58.9 Irritable bowel syndrome, unspecified
CPT/HCPCS: 36415; 82024; 82164; 82533; 83525; 84681

== ENCOUNTER → 2023-03-15 | Outpatient (CLI) | payer OTHER, SELFPAY ==
[2023-03-15 08:19] LABS: Absolute Lymphocyte Count 2.27 X10^3/uL (0.83-4.51); Absolute Neutrophil Count 3.8 X10^3/uL (2.0-7.7); Basophil# 0.02 X10^3/uL; Basophil% 0.3 % (0-1); Eosinophil# 0.09 X10^3/uL; Eosinophils% 1.3 % (0-5); Hematocrit 40.6 % (37-47); Hemoglobin 13.9 g/dL (12.0-15.0); Lymphocyte # 2.27 X10^3/ul (0.83-4.51); Lymphocyte % 33.4 % (19-41); Mean Corp Hgb Conc 34.2 g/dL (32-36); Mean Corpuscular Hgb 30.8 pg (27.0-32.0); Mean Platelet Vol. 10.5 fl (6.2-12.0); Monocyte# 0.57 X10^3/uL; Monocyte% 8.4 % (0-10); NRBC Flagged by Analyzer 0 % (0-5); Neutrophil # 3.82 X10^3/uL (2.7-7.7); Neutrophil % 56.3 % (47-70); Platelet Count 288 K/mm3 (150-450); RBC Distribution Width CV 11.9 % (11.6-14.6); RBC Distribution Width SD 38.7 fl (35.1-43.9); Red Blood Count 4.51 M/mm3 (4.2-5.4); White Blood Count 6.8 K/mm3 (4.4-11.0)
[2023-03-15 09:01] LABS: Insulin 22.9 mU/L (2.6-37.6)
[2023-03-15 09:10] LABS: ALB/GLOB Ratio 1.1 RATIO (0.9-2.4); AST(SGOT) 16 U/L (15-37); Alanine Aminotransfer ALT/SGPT 34 U/L (13-56); Albumin, Serum 4.1 g/dL (3.2-5.0); Alkaline Phosphatase 92 U/L (45-117); Anion Gap 5 (5-15); BUN 13 mg/dL (7-18); BUN/Creat Ratio 13.7 RATIO (10-20); Calcium,Total 9.5 mg/dL (8.5-10.1); Chloride 106 mmol/L (98-107); Creatinine, Serum 0.95 mg/dL (0.55-1.02); EST Glomerular Filtration Rate 78 mL/min (>60); Est Glom Filt Rate - Afr Amer 95 mL/min (>60); Globulin 3.7 g/dL (2.2-4.2); Glucose 89 mg/dL (74-106); Potassium 3.4 mmol/L (3.5-5.1); Protein, Total 7.8 g/dL (6.4-8.2); Sodium Level 137 mmol/L (136-145); T4 Free Direct 0.97 ng/dL (0.76-1.46); Thyroid Stim Hormone (TSH) 5.36 uIU/mL (0.358-3.74)
[2023-03-19 09:07] LABS: 17-Hydroxyprogesterone 47 ng/dL (.)
[2023-03-22 19:07] LABS: Adrenocorticotropic Hormone 21.6 pg/mL (7.2-63.3); Androstenedione 185 ng/dL (41-262); C-Peptide 3.4 ng/mL (1.1-4.4)
== END | disposition home or self-care (01) ==
LOC: LAB 07:54
PROVIDERS: PCP Family Medicine
DX: E16.1 Other hypoglycemia (principal); R79.89 Other specified abnormal findings of blood chemistry
CPT/HCPCS: 36415; 80053; 82024; 82157; 82533; 82627; 83498; 83525; 84403; 84439; 84443; 84681; 85025; 82626

== ENCOUNTER → 2023-03-18 | Outpatient (CLI) | payer OTHER, SELFPAY | END | disposition home or self-care (01) | LOC: LAB 08:05 | PROVIDERS: PCP Family Medicine | DX: R79.89 Other specified abnormal findings of blood chemistry (principal) | CPT/HCPCS: 36415; 82533 ==

== ENCOUNTER → 2023-10-20 | Outpatient (CLI) | payer OTHER, SELFPAY ==
[2023-10-20 08:43] LABS: T3 Total - Triiodothyronine 1.14 ng/mL (0.6-1.81)
[2023-10-20 08:50] LABS: ALB/GLOB Ratio 1.2 RATIO (0.9-2.4); AST(SGOT) 21 U/L (15-37); Alanine Aminotransfer ALT/SGPT 56 U/L (13-56); Albumin, Serum 3.9 g/dL (3.2-5.0); Alkaline Phosphatase 88 U/L (45-117); Anion Gap 6 (5-15); BUN 18 mg/dL (7-18); BUN/Creat Ratio 20.1 RATIO (10-20); Chloride 109 mmol/L (98-107); EST Glomerular Filtration Rate 83 mL/min (>60); Est Glom Filt Rate - Afr Amer 101 mL/min (>60); Globulin 3.2 g/dL (2.2-4.2); Glucose 101 mg/dL (74-106); Potassium 3.7 mmol/L (3.5-5.1); Protein, Total 7.1 g/dL (6.4-8.2); Sodium Level 140 mmol/L (136-145); T4 Free Direct 0.95 ng/dL (0.76-1.46); Thyroid Stim Hormone (TSH) 2.29 uIU/mL (0.358-3.74)
[2023-10-26 14:08] LABS: Androstenedione 118 ng/dL (41-262)
== END | disposition home or self-care (01) ==
LOC: LAB 08:00
PROVIDERS: PCP Family Medicine
DX: R79.89 Other specified abnormal findings of blood chemistry (principal)
CPT/HCPCS: 36415; 80053; 82157; 82533; 82627; 84146; 84439; 84443; 84480; 82626

== ENCOUNTER → 2024-01-16 | Outpatient (CLI) | payer OTHER, SELFPAY ==
--- NOTE | 2024-01-16 09:50 | NM_ITS ---
CLINICAL: 23-year-old female with history of chronic nausea. RADIONUCLIDE HEPATOBILIARY SCINTIGRAPHY COMPARISON: Previous CCK hepatobiliary scintigraphy study dated 12/06/2018 FINDINGS: Following the intravenous administration of 5.6 mCi of 99m Tc Mebrofenin, hepatobiliary images reveal: 1. Relatively prompt and homogeneous radiopharmaceutical concentration is noted by a normal sized liver. No parenchymal defects are identified. 2. Gallbladder activity is identified at 10 minutes post radiopharmaceutical administration. 3. Small intestinal tract is not visualized during 60 minutes of pre-CCK sequential imaging. Small bowel activity is identified following the administration of cholecystokinin. 4. Washout of the radiopharmaceutical by the hepatic parenchyma appears qualitatively normal. Cholecystokinin (0.02 ug/kg) was administered intravenously over a 3-minute period. The post CCK gallbladder ejection fraction calculated at 20 minutes following Cholecystokinin administration was noted to be 51.0 % (normal greater than 35%) compared to 42% defined on the examination dated 12/06/2018. During 30 minutes of post CCK imaging, there is no scintigraphic evidence of reflux of the radiotracer into the common hepatic duct or refilling of the gallbladder. NM/Hepatobilliary Img w/Pharm Int IMPRESSION: 1. NORMAL 99m Tc Mebrofenin hepatobiliary imaging examination with Cholecystokinin. A. A gallbladder ejection fraction calculated to be greater than 35% following the administration of Cholecystokinin makes the probability of functional hepatobiliary disease (gallbladder and/or sphincter of Oddi dyskinesia) and/or organic hepatobiliary disease (chronic acalculous cholecystitis and/or cystic duct syndrome) to be low. (Phillip Grover et al, Journal of Nuclear Medicine 32:1695, 1990). B. Overall compared to the examination dated 12/06/2018, the previously defined pre and post cholecystokinin duodenal gastric reflux is not visualized. There is no definitive interval change in the physiologic response of the gallbladder to CCK administration. Electronically Signed: Dinesh Hernández DO at 15:30 EDT ,
== END | disposition home or self-care (01) ==
LOC: NM 09:47
PROVIDERS: PCP Family Medicine; Referring Provider Internal Medicine Gastroenterology; Visit Provider Internal Medicine Gastroenterology
DX: R11.0 Nausea (principal)
CPT/HCPCS: 78227; A9537; J2805

== ENCOUNTER → 2024-01-19 | Outpatient (CLI) | payer OTHER, SELFPAY ==
--- NOTE | 2024-01-19 11:55 | NM_ITS ---
CLINICAL: 23-year-old female with history of chronic nausea. SEMI-SOLID PHASE 99m Tc SULFUR COLLOID GASTRIC EMPTYING STUDY COMPARISON: Radionuclide hepatobiliary scintigraphy study dated 01/16/2024 FINDINGS: The patient was administered 1.0 mCi of 99m Tc sulfur colloid mixed with oatmeal and consumed per os. Image acquisitions in the anterior-posterior projections were obtained for 60 minutes. There is prompt visualization of the stomach. There is no gastroesophageal reflux identified. The T ? linear fit was calculated to be 29.91 minutes, (Normal: 12-56 minutes). NM/Gastric Emptying Study IMPRESSION: 1. NORMAL 99m Tc sulfur colloid semi-solid phase (oatmeal) gastric emptying imaging examination. A. There is normal and preserved semi-solid phase gastric emptying compared to normal controls. (Henny et al, J Nucl Med Tech 38: 186, 2010). Electronically Signed: Dinesh Hernández DO at 15:43 EDT ,
== END | disposition home or self-care (01) ==
LOC: NM 11:53
PROVIDERS: PCP Family Medicine; Referring Provider Internal Medicine Gastroenterology; Visit Provider Internal Medicine Gastroenterology
DX: R11.0 Nausea (principal)
CPT/HCPCS: 78264; A9541

== ENCOUNTER → 2024-04-02 | Outpatient (CLI) | payer OTHER, SELFPAY ==
--- NOTE | 2024-04-02 14:44 | RAD_ITS ---
EXAM: XR CHEST, 2 VIEWS CLINICAL INDICATION: cough TECHNIQUE: Frontal and lateral views of the chest. COMPARISON: 09/06/2022 FINDINGS: LUNGS AND PLEURAL SPACES: No significant abnormality. No consolidation or edema. No pneumothorax. No effusion. HEART: No significant abnormality. Cardiac silhouette not enlarged. MEDIASTINUM: Central airways and mediastinal contour are unremarkable. BONES/JOINTS: No significant abnormality. No acute fracture. SOFT TISSUES: No significant abnormality. RAD/Chest PA and Lateral IMPRESSION: No radiographic evidence of acute cardiopulmonary disease. Electronically Signed: Dc Longoria DO at 20:40 EST ,
[2024-04-08 09:22] LABS: Angiotensin Convert Enzyme 64 U/L (14-82)
== END | disposition home or self-care (01) ==
LOC: RAD 14:23
PROVIDERS: PCP Family Medicine; Referring Provider Nurse Practitioner Acute Care; Visit Provider Nurse Practitioner Acute Care
DX: R06.2 Wheezing (principal); R05.9 Cough, unspecified
CPT/HCPCS: 36415; 71046; 82164

== ENCOUNTER 2024-05-15 23:53 | Emergency (ER) | payer OTHER, SELFPAY ==
[2024-05-15 23:54] VITALS: BP 166/104; PULSE 126; RESP 15; TEMP 36.9; O2SAT 98; BMI 40.1
--- NOTE | 2024-05-16 00:14 | RAD_ITS ---
STUDY: X-RAY - THORACIC SPINE REASON FOR EXAM: Female, 23 years old patient with back pain. TECHNIQUE: AP and lateral view(s) of the thoracic spine were obtained. COMPARISON: Prior comparison studies are not available for review at this time. FINDINGS: Normal kyphosis of the thoracic spine. There is no substantial scoliosis. Normal thoracic vertebrae and endplates. Normal disc space heights. The soft tissue structures are unremarkable. RAD/Thoracic Spine 3 Views IMPRESSION: Normal x-ray examination of the thoracic spine. Electronically Signed: Yecenia Zheng MD at 1:02 [facility] ,
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
[2024-05-16] MEDS: Orphenadrine 100 MG Tablet PO (00:37)
[2024-05-16] MEDS: Ondansetron ODT 4 MG Tablet PO (00:37)
[2024-05-16] MEDS: Ketorolac 30 MG/ML Syringe IM (00:37)
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
[2024-05-16 01:32] VITALS: BP 134/89; PULSE 104; RESP 18; TEMP 36.8; O2SAT 98
== END 2024-05-16 01:35 | disposition home or self-care (01) ==
PROVIDERS: Emergency Provider Emergency Medicine; PCP Family Medicine; Visit Provider Emergency Medicine
DX: S06.0X0A Concussion without loss of consciousness, initial encounter (principal); S16.1XXA Strain of muscle, fascia and tendon at neck level, initial encounter; M54.6 Pain in thoracic spine; V47.5XXA Car driver injured in collision with fixed or stationary object in traffic accident, initial encounter; Y92.410 Unspecified street and highway as the place of occurrence of the external cause; F41.9 Anxiety disorder, unspecified; K58.9 Irritable bowel syndrome, unspecified; Z79.890 Hormone replacement therapy; Z79.899 Other long term (current) drug therapy
CPT/HCPCS: 70450; 72072; 72125; 96372; 99283

== ENCOUNTER → 2024-07-31 | Outpatient (CLI) | payer OTHER, SELFPAY ==
[2024-07-31 12:05] LABS: Absolute Lymphocyte Count 1.51 X10^3/uL (0.83-4.51); Absolute Neutrophil Count 1.9 X10^3/uL (2.0-7.7); Basophil# 0.03 X10^3/uL; Basophil% 0.7 % (0-1); Eosinophils% 2.5 % (0-5); Hematocrit 38.7 % (37-47); Hemoglobin 13.4 g/dL (12.0-15.0); Lymphocyte # 1.51 X10^3/ul (0.83-4.51); Lymphocyte % 37.2 % (19-41); Mean Corp Hgb Conc 34.6 g/dL (32-36); Mean Corpuscular Volume 89.6 fL (81-99); Monocyte# 0.48 X10^3/uL; Monocyte% 11.8 % (0-10); NRBC Flagged by Analyzer 0 % (0-5); Neutrophil # 1.92 X10^3/uL (2.7-7.7); Neutrophil % 47.3 % (47-70); Platelet Count 272 K/mm3 (150-450); RBC Distribution Width CV 12.1 % (11.6-14.6); RBC Distribution Width SD 39.7 fl (35.1-43.9); Red Blood Count 4.32 M/mm3 (4.2-5.4); White Blood Count 4.1 K/mm3 (4.4-11.0)
[2024-07-31 14:29] LABS: ALB/GLOB Ratio 1.7 RATIO (0.9-2.4); AST(SGOT) 21 U/L (<=31); Alanine Aminotransfer ALT/SGPT 32 U/L (<=34); Albumin, Serum 4.5 g/dL (3.5-5.0); Alkaline Phosphatase 85 U/L (35-104); Anion Gap 13 (5-15); BUN 18 mg/dL (4-19); BUN/Creat Ratio 24.6 RATIO (10-20); Calcium,Total 9.2 mg/dL (7.6-11.0); Carbon Dioxide 20.8 mmol/L (21.0-32.0); Chloride 105 mmol/L (98-108); Creatinine, Serum 0.74 mg/dL (0.70-1.20); EST Glomerular Filtration Rate 117 (>60); Globulin 2.7 g/dL (2.2-4.2); Glucose 98 mg/dL (70-99); Potassium 3.9 mmol/L (3.3-5.1); Protein, Total 7.2 g/dL (5.9-8.4); Sodium Level 139 mmol/L (133-145); Total Bilirubin 0.29 mg/dL (0.00-1.30)
[2024-07-31 15:49] LABS: Hemoglobin A1c 5.2 % (<=5.6)
[2024-08-01 16:09] LABS: Angiotensin Convert Enzyme 64 U/L (14-82)
== END | disposition home or self-care (01) ==
LOC: LAB 11:05
PROVIDERS: PCP Family Medicine; Referring Provider Nurse Practitioner Family; Visit Provider Nurse Practitioner Family
DX: E03.9 Hypothyroidism, unspecified (principal); E16.1 Other hypoglycemia; D86.9 Sarcoidosis, unspecified; R05.9 Cough, unspecified
CPT/HCPCS: 36415; 80053; 82164; 83036; 84439; 84443; 85025; 86003

== ENCOUNTER → 2024-08-02 | Outpatient (CLI) | payer OTHER, SELFPAY | END | disposition home or self-care (01) | LOC: PSN 10:39 | PROVIDERS: PCP Family Medicine; Referring Provider Nurse Practitioner Family; Visit Provider Nurse Practitioner Family | DX: R05.9 Cough, unspecified (principal) | CPT/HCPCS: 94060; 94726; 94729 ==

== ENCOUNTER → 2024-08-23 | Outpatient (CLI) | payer OTHER, SELFPAY ==
--- NOTE | 2024-08-23 13:56 | CT_ITS ---
PROCEDURE: CHEST WITHOUT CONTRAST 08/23/2024 REASON FOR EXAM: DRY COUGH FOR 6 MONTHS, HISTORY OF SARCOID TECHNIQUE: Chest CT without contrast. Coronal and Sagittal reconstruction series were provided. One or more dose reduction techniques were used (e.g., Automated exposure control, adjustment of the mA and/or kV according to patient size, use of iterative reconstruction technique RADIATION DOSE SUMMARY: CTDlvol: 21 mGy DLP: 716 mGycm COMPARISON: CT chest 04/05/2022. FINDINGS: Hardware: None. Lymph nodes: Visualization is limited without the use of IV contrast. No axillary, mediastinal or hilar lymphadenopathy. Heart and Vasculature: The heart is normal in size without pericardial effusion. Soft tissue density within the anterior mediastinum, compatible with residual thymic tissue. The great vessels are normal in caliber. Lungs and Airways: The central airways are patent. Unchanged clustered nodularity within the left lower lobe abutting the pleural surface and major fissure. The dominant pulmonary nodule measures 1.7 cm (series 4, image 86), previously 1.6 cm when measured in a similar fashion. Additional unchanged scattered bilateral pulmonary nodules (for example within the right lower lobe series 4, image 72). No pleural effusion or pneumothorax. Upper Abdomen: Unremarkable. Bones: No aggressive osseous lesions. CT/Chest without Contrast IMPRESSION: Unchanged bilateral pulmonary nodules, with the dominant nodularity within the left lower lobe as described. Reading Location: [facility]
== END | disposition home or self-care (01) ==
LOC: CT 13:54
PROVIDERS: PCP Family Medicine; Referring Provider Nurse Practitioner Family; Visit Provider Nurse Practitioner Family
DX: R05.3 Chronic cough (principal)
CPT/HCPCS: 71250

== ENCOUNTER 2024-10-08 02:28 | Emergency (ER) | payer OTHER, SELFPAY ==
[2024-10-08 02:28] VITALS: BP 135/89; PULSE 107; RESP 18; TEMP 37; O2SAT 99; BMI 40.6
--- NOTE | 2024-10-08 02:45 | US_ITS ---
PROCEDURE: TRANSVAGINAL W/PREG US N/A REASON FOR EXAM: ? ECTOPIC TECHNIQUE: TRANSVAGINAL W/PREG US Transvaginal real-time ultrasound images with Doppler evaluation of the ovarian flow. COMPARISON: None. FINDINGS The uterus measures 7.7 x 4.1 x 3.4 cm. No intrauterine is visualized. Closed cervix. No free fluid in the pelvis. Intrauterine device is identified in the fundal aspect of the uterine cavity. The endometrium is normal in thickness measuring 6.2 mm. The right ovary measures 2.5 x 2.6 x 3 cm. Normal right ovarian flow. The left ovary measures 2.5 x 2.5 x 2.7 cm. Left ovarian follicle/simple cyst measuring 1.6 x 1.5 x 1.5 cm. Normal left ovarian flow. US/Transvaginal w/Preg US IMPRESSION: No intrauterine is visualized. Unremarkable intrauterine device. No adnexal mass lesion or free pelvic fluid. Left ovarian follicle/simple cyst measuring 1.6 cm. Reading [facility]
[2024-10-08 03:00] LABS: Absolute Lymphocyte Count 1.89 X10^3/uL (0.83-4.51); Absolute Neutrophil Count 4.8 X10^3/uL (2.0-7.7); Basophil# 0.02 X10^3/uL; Basophil% 0.3 % (0-1); Eosinophil# 0.02 X10^3/uL; Eosinophils% 0.3 % (0-5); Hematocrit 37.7 % (37-47); Hemoglobin 13.2 g/dL (12.0-15.0); Lymphocyte # 1.89 X10^3/ul (0.83-4.51); Lymphocyte % 26.2 % (19-41); Mean Corpuscular Hgb 30.8 pg (27.0-32.0); Mean Corpuscular Volume 87.9 fL (81-99); Mean Platelet Vol. 10.5 fl (6.2-12.0); Monocyte# 0.47 X10^3/uL; Monocyte% 6.5 % (0-10); NRBC Flagged by Analyzer 0 % (0-5); Neutrophil # 4.79 X10^3/uL (2.7-7.7); Neutrophil % 66.4 % (47-70); Platelet Count 290 K/mm3 (150-450); RBC Distribution Width CV 11.9 % (11.6-14.6); RBC Distribution Width SD 38.2 fl (35.1-43.9); Red Blood Count 4.29 M/mm3 (4.2-5.4); White Blood Count 7.2 K/mm3 (4.4-11.0)
--- OUTSIDE RECORDS SUMMARY | 2024-10-08 03:38 | XMS RPT_ITS | CCD ---
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 20 mg daily dosing she is to contact the office and we will either titrate back up or prolonged the 20 mg daily dosing. The patient will present to the office in 1 month for routine follow-up. This case was discussed with Dr. Briseno. Chest x-ray results will be discussed with the patient by phone once available. Orders: Orders NIOX Today R06.2 - Wheezing Angiotensin Convert Enzyme Today R06.2 - Wheezing Chest PA and Lateral Today R06.2 - Wheezing Medications: New prednisone take 4 tabs for three days, then 3 tabs for three days, then 2 tabs for three days, then 1 tab for 3 days 10 mg PO QDAY 30 tabs 0RF R06.2 - Wheezing Discontinued prednisone Discontinued Reason: Order Changed 20 mg PO BID 10 tabs 0RF HPI Acute appt per Dr. Briseno Chief Complaint: Dry cough HPI Comments Details: This patient presents to the office today for an acute visit regarding concerns for sarcoidosis flare. She is ambulatory and currently on room air. She contacted the office on April 01, 2024 reporting that she had been experiencing a dry cough, shortness of breath and fatigue. She also noticed fever and red bumps/dry patches on the face and breast. She had been seen by an acute care physician who placed her on prednisone. The patient reports that these are the same symptoms that she noticed when she was initially referred to our practice, this is shortly followed by progression into pneumonia. The patient started 20 mg of prednisone twice daily yesterday, she did have 20 mg of prednisone this morning. She is not currently on any inhalers. She continues to experience shortness of breath on exertion. She has a dry cough, denies any sputum production or hemoptysis. She has noticed chest tightness on exertion. She denies any chest congestion or chest pain. She has not experienced fevers today. The rash continues on her face and chest. Intake Vital Signs 04/01/24 10:59 04/02/24 09:56 Height 5 ft 6 in 5 ft 6 in Weight: 242 lb 8 oz 243 lb BMI 39.1 39.2 BP 120/88 H 121/84 H Blood Pressure Location Lt brachial Position Sitting Sitting Respiration 20 H Pulse 92 85 Pulse Source Monitor Temp 98.0 F 97.3 F L Temperature Source Temporal Artery Pulse Oximetry (%) 97 97 Oxygen Delivery Method room air room air Intake Visit Reasons: Acute appt per Dr. 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 Accompanied by: Self Allergies Iodinated Contrast Media Allergy (Verified 04/02/24 13:47) Hives Medications ???Medication ???Instructions ???Recorded ???Confirmed ???Type hyoscyamine 0.15 mg tablet mg PO 05/02/22 04/02/24 History levonorgestrel 20.4 mcg/24 hr (up 1 device intrauterine ONCE 05/02/22 04/02/24 History to 8 yrs) 52 mg intrauterine device (Liletta) linaclotide 145 mcg capsule 145 mcg PO DAILY 05/12/23 04/02/24 History (Linzess) hydroxyzine HCl 50 mg tablet 50 mg PO TID 09/21/23 04/02/24 History sertraline 100 mg tablet 100 mg PO QDAY 09/21/23 04/02/24 History sacrosidase 8,500 unit/mL oral 2 ml PO 6XD #300 mL 10/19/23 04/02/24 Rx solution (Sucraid) levothyroxine 88 mcg tablet 88 (more content not included)... Normal [facility] Urgent Care Visit Reporton 1 06-02-2023 Urgent Care Visit Report [facility] [address], [address] [place] [address] OFFICE VISIT Date of Service: 04/01/24 MR#: [id number] Acct: [id number] Name: TIMOTHY ZAMORA Rep #: [id number] : 2000 Provider: MACK Shook Age/Sex: 23/F Location: [facility] [place].[facility] Status: Signed Intake Vital Signs 09/21/23 07:20 04/01/24 10:59 Height 5 ft 6 in 5 ft 6 in Weight: 242 lb 8 oz BMI 39.1 BP 120/88 H Position Sitting Pulse 92 Temp 98.0 F Temp Source Oral Pulse Oximetry (%) 97 Oxygen Delivery Method room air Intake Visit Reasons: Rash Accompanied by: Self Allergies Iodinated Contrast Media Allergy (Verified 04/01/24 11:04) Hives Medications ???Medication ???Instructions ???Recorded ???Confirmed ???Type hyoscyamine 0.15 mg tablet mg PO 05/02/22 04/01/24 History levonorgestrel 20.4 mcg/24 hr (up 1 device intrauterine ONCE 05/02/22 04/01/24 History to 8 yrs) 52 mg intrauterine device (Liletta) linaclotide 145 mcg capsule 145 mcg PO DAILY 05/12/23 04/01/24 History (Linzess) hydroxyzine HCl 50 mg tablet 50 mg PO TID 09/21/23 04/01/24 History levothyroxine 50 mcg tablet 50 mcg PO QDAY 09/21/23 04/01/24 History sertraline 100 mg tablet 100 mg PO QDAY 09/21/23 04/01/24 History sacrosidase 8,500 unit/mL oral 2 ml PO 6XD #300 mL 10/19/23 04/01/24 Rx solution (Sucraid) prednisone 20 mg tablet 20 mg PO BID #10 tabs 04/01/24 04/01/24 Rx Nurse's Note: Patient here for a rash on her breast and on and off on her face and cough and fever on and off. Patient thinks she is having a Auto- immune disease flare up. [facility] Medical History (Updated 04/01/24 @ 12:31 by Sathish GIRON, PA) Allergic dermatitis Hemorrhoids Fatigue Physical exam, pre-employment Wears contact lenses Wears glasses Anxiety Injury of head and neck Non-smoker Congenital sucrase-isomaltase deficiency Seizure disorder IBS (irritable bowel syndrome) Abdominal pain Family History Grandfather Cancer COPD (chronic obstructive pulmonary disease) Asthma Diabetes Grandmother Cancer CAD (coronary artery disease) Hypertension Mother Cancer cervical precancerous cells Social History Smoking Status: Never smoker Electronic Cigarette Use: not used second hand exposure: No alcohol intake: current alcohol intake frequency: holidays/special occasions only substance use type: does not use HPI HPI Details: TIMOTHY ZAMORA, is a 23 F who presents to the office today for acute onset erythematous based pruritic rash to forehead bilateral cheeks of face and between and under both breasts of unknown etiology. No new exposures that she is aware of. Current medication regiment includes hydroxyzine levonorgestrel, linaclotide, sacrosidase, sertraline -noting no changes to her medications for quite some time as she describes. No complaints of constricted/pruritic airway or chest pain/shortness of breath/wheeze. No other systemic complaints appreciated. PMH: Sarcoidosis, for which she is currently only being monitored without treatment she so states ROS Const Constitutional: No other (As above) Exam Const General: cooperative, healthy appearing and no acute distress Orientation: alert and awake [facility] Head: normal to inspection Ears: hearing grossly normal bilaterally, external ears normal, TM's normal bilaterally and EAC's normal Nose: external nose normal, nares normal, septum normal and no nasal discharge Eyes General: appearance normal, both eyes and all related structures Neck Neck: normal visual inspection, no lymphadenopathy, no meningeal signs and supple Chest Chest palpation inspection: normal inspection of the chest Resp Effort Inspection: normal respiratory effort and able to speak in complete sentences Auscultation: Bilateral: Clear to Auscultation Cardio Palpation: normal PMI Rate: regular rate Rhythm: regular rhythm Heart Sounds: S1 normal, S2 normal, no gallops, no murmurs and no rubs Pulses: radial pulses present GI Inspection: normal to inspection Palpation: soft and no hepatosplenomegaly Skin General: no rashes or lesions noted (erythematous based pruritic rash to forehead bilateral cheeks of face and b) Other: except erythematous based pruritic rash to forehead bilateral cheeks of face and between and under both breasts Neuro General: patient alert, patient awake, patient oriented x3 and gait normal Cognition: normal cognition Speech: speech normal Gait: normal gait Motor: muscle tone normal throughout Sensory Exam: no sensory deficits noted Extrem General: normal to inspection Psych Appearance: grossly normal Mental Status: mental status tete (more content not included)... Normal [facility] Gastric Emptying Studyon Gastric Emptying Study [facility] Imaging Services [address] [place] [id number] Gastric Emptying Study MR#: [id number] Acct: [id number] Name: TIMOTHY ZAMORA Rep #: [id number] : 2000 F 23 From: Dinesh Bates PCP: Dr. Pj Montana MD Status: REG CLI Study: Gastric Emptying Study Date of Exam: 01/19/24 Exam# [id number] Ordering Dr: Mendez Velasco DO [id number] CLINICAL: 23-year-old female with history of chronic nausea. SEMI-SOLID PHASE 99m Tc SULFUR COLLOID GASTRIC EMPTYING STUDY COMPARISON: Radionuclide hepatobiliary scintigraphy study dated 01/16/2024 FINDINGS: The patient was administered 1.0 mCi of 99m Tc sulfur colloid mixed with oatmeal and consumed per os. Image acquisitions in the anterior-posterior projections were obtained for 60 minutes. There is prompt visualization of the stomach. There is no gastroesophageal reflux identified. The T ? linear fit was calculated to be 29.91 minutes, (Normal: 12-56 minutes). NM/Gastric Emptying Study IMPRESSION: 1. NORMAL 99m Tc sulfur colloid semi-solid phase (oatmeal) gastric emptying imaging examination. A. There is normal and preserved semi-solid phase gastric emptying compared to normal controls. (Erich, J Nucl Med Tech 38: 186, 2010). Electronically Signed: Dinesh Hernández DO at 15:43 EDT , CC: Dr. Pj Montana MD; Mendez Velasco DO Tire Balancer: Signed Normal [facility] Hepatobilliary Img w/Pharm I nton 01-16-2024 Hepatobilliary Img w/Pharm Int [facility] Imaging Services [address] [place], [place] [address] Hepatobilliary Img w/Pharm Int MR#: [id number] Acct: [id number] Name: TIMOTHY ZAMORA Rep #: [id number] : 2000 F 23 From: Dinesh Bates PCP: Dr. Pj Montana MD Status: REG CLI Study: Hepatobilliary Img w/Pharm Int Date of Exam: 0 01/16/24 Exam# [id number] Ordering Dr: Mendez Velasco DO [id number] CLINICAL: 23-year-old female with history of chronic nausea. RADIONUCLIDE HEPATOBILIARY SCINTIGRAPHY COMPARISON: Previous CCK hepatobiliary scintigraphy study dated 12/06/2018 FINDINGS: Following the intravenous administration of 5.6 mCi of 99m Tc Mebrofenin, hepatobiliary images reveal: 1. Relatively prompt and homogeneous radiopharmaceutical concentration is noted by a normal sized liver. No parenchymal defects are identified. 2. Gallbladder activity is identified at 10 minutes post radiopharmaceutical administration. 3. Small intestinal tract is not visualized during 60 minutes of pre-CCK sequential imaging. Small bowel activity is identified following the administration of cholecystokinin. 4. Washout of the radiopharmaceutical by the hepatic parenchyma appears qualitatively normal. Cholecystokinin (0.02 ug/kg) was administered intravenously over a 3-minute period. The post CCK gallbladder ejection fraction calculated at 20 minutes following Cholecystokinin administration was noted to be 51.0 % (normal greater than 35%) compared to 42% defined on the examination dated 12/06/2018. During 30 minutes of post CCK imaging, there is no scintigraphic evidence of reflux of the radiotracer into the common hepatic duct or refilling of the gallbladder. NM/Hepatobilliary Img w/Pharm Int IMPRESSION: 1. NORMAL 99m Tc Mebrofenin hepatobiliary imaging examination with Cholecystokinin. A. A gallbladder ejection fraction calculated to be greater than 35% following the administration of Cholecystokinin makes the probability of functional hepatobiliary disease (gallbladder and/or sphincter of Oddi dyskinesia) and/or organic hepatobiliary disease (chronic acalculous cholecystitis and/or cystic duct syndrome) to be low. (Phillip Grover et al, Journal of Nuclear Medicine 32:1695, 1990). B. Overall compared to the examination dated 12/06/2018, the previously defined pre and post cholecystokinin duodenal gastric reflux is not visualized. There is no definitive interval change in the physiologic response of the gallbladder to CCK administration. Electronically Signed: Dinesh Hernández DO at 15:30 EDT , CC: Dr. Pj Montana MD; Mendez Velasco DO Tire Balancer: Signed Normal [facility] Gastroenterology Visit Repor ton 12-28-2023 Gastroenterology Visit Report [facility]astroenterology [address] [place] [address] OFFICE VISIT Date of Service: 12/28/23 MR#: [id number] Acct: [id number] Name: MANSOORTIMOTHY ROEL Rep #: [id number] : 2000 Provider: Mendez Velasco DO Age/Sex: 23/F Location: [facility] [place].[facility] Status: Signed Intake Vital Signs 09/21/23 07:20 Height 5 ft 6 in Weight: 245 lb BMI 39.5 BP 144/88 H Blood Pressure Location Rt brachial Position Sitting Respiration 20 H Pulse 105 H Pulse Source Monitor Temp 98.0 F Pulse Oximetry (%) 98 Oxygen Delivery Method room air Intake Visit Reasons: Follow up Allergies Iodinated Contrast Media Allergy (Verified 09/21/23 10:51) Hives Medications ???Medication ???Instructions ???Recorded ???Confirmed ???Type hyoscyamine 0.15 mg tablet mg PO 05/02/22 12/28/23 History levonorgestrel 20.4 mcg/24 hr (up 1 device intrauterine ONCE 05/02/22 12/28/23 History to 8 yrs) 52 mg intrauterine device (Liletta) linaclotide 145 mcg capsule 145 mcg PO DAILY 05/12/23 12/28/23 History (Linzess) hydroxyzine HCl 50 mg tablet 50 mg PO TID 09/21/23 12/28/23 History levothyroxine 50 mcg tablet 50 mcg PO QDAY 09/21/23 12/28/23 History sertraline 100 mg tablet 100 mg PO QDAY 09/21/23 12/28/23 History sacrosidase 8,500 unit/mL oral 2 ml PO 6XD #300 mL 10/19/23 12/28/23 Rx solution (Sucraid) PFSH Medical History Hemorrhoids Fatigue Physical exam, pre-employment Wears contact lenses Wears glasses Anxiety Injury of head and neck Non-smoker Congenital sucrase-isomaltase deficiency Seizure disorder IBS (irritable bowel syndrome) Abdominal pain Family History Grandfather Cancer COPD (chronic obstructive pulmonary disease) Asthma Diabetes Grandmother Cancer CAD (coronary artery disease) Hypertension Mother Cancer cervical precancerous cells Social History Smoking Status: Never smoker Electronic Cigarette Use: not used second hand exposure: No alcohol intake: current alcohol intake frequency: holidays/special occasions only substance use type: does not use HPI HPI Details: TIMOTHY ZAMORA, is a 23 F who presents to the office today for follow up. 2018 she began having GI symptoms of abdominal pain or RLQ and epigastric regions with decreased appetite with intermittent nausea without emesis. Omeprazole attempted without effect. Established with [facility] pediatric larriman. ? Biochemical workup CBC, LFT, BMP, CRP, TTG, IgA WNL ? US abd WNL ? HIDA WNL ? Sucrose breath test abnormal Start Sucraid With start of sucraid she began seeing improvement with time. Noted weight loss with increase in activity and better diet choices. Pulmonology established who noted a nodule. ? PET 05.11.22 noting abnormalities included increased tracer uptake in pancreatic head uncinate, f/u with CT scan. ? CT abd/pel 05.17.22 normal liver, gallbladder, pancreas; colonic diverticulosis; stable 1.3 noncalficied lung nodule. *BGI established 07.15.22. CSID diagnosed at age 18 and needs to establish with GI as she has become an adult; continues to have some bloating associated with diet. Follows a sucrose deficiency diet for the most part, but is not strict. Also, would like direction regarding pancreas possible abnormality. ? Biochemical CBC, ESR, CMP, LDH, AFP, CA19-9, gastrin, IgG subclasses, GAME, CRIS, ANCA, celiac without pertinent abnormality ? Insulin H38.1, CPeptide H7, CRP H5.01 ? 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 Refer to endocrinology, patient choice: [facility]; later changed to [facility] Endocrinology ? Stool calprotectin, elastase, lactoferrin, WNL OV 11.22.22 BM occur once every couple of days with lower abdominal discomfort and nausea; MiraLAX taken daily for many years. Refer to endocrinology ? Biochemical insulin, cpeptide, CAT, adrenocorticotropic hormone WNL ? Cortisol H23.9 Contact 11.28.22 proceed with endocrinology referral. Endocrinology scheduled 03.03.23 with [facility] who ordered additional testing ? Bioch (more content not included)... Normal [facility] Androstenedioneon 10-26-2023 ANDROSTENEDIONE 118 ng/dL Normal 41-262 [facility] Comment on above: Order Comment: Test( s) 113907-Utquwzcrmnfbisv LCMSwas developed and its performance characteristicsdetermined by [facility]. It has not been cleared or approvedby the Food and Drug Administration.N Result Comment: Perf ormed at: - [address], [place], [place] [id number] Garage Helper: Carl Shepard PhD, Phone: [phone] Performed at: [address] [id number] Garage Helper: Ping Wang MD, Phone: [phone] Performed By: #### L 501.9520, L509.6000, L506.0400, L3300.1500, L3100.5420, L501.9186, L3300.4450, L500.4050 ####[facility] [address] [place], [place], [address] DHEA Sulfateon 10-26-2023 DHEA SULFATE 409.0 ug/dL Normal 110.0-431. 7 [facility] Comment on above: Order Comment: Test( s) 129096-Rtxdmrhlzpfscbv LCMSwas developed and its performance characteristicsdetermined by [facility]. It has not been cleared or approvedby the Food and Drug Administration.N Performed By: #### L 501.9520, L509.6000, L506.0400, L3300.1500, L3100.5420, L501.9186, L3300.4450, L500.4050 ####[facility] [address] [place], [place], [id number] CORTISOL SERUMon 10-20-2023 CORTISOL 16.90 ug/dL Normal 3.44-22.45 [facility] Comment on above: Order Comment: 0000 Result Comment: Adul t (AM) 5.27 - 22.45 ug/dL Adult (PM) 3.44 - 16.76 ug/dL Please note revised CORTISOL reference range effective 2019. Performed By: #### L 501.9520, L509.6000, L506.0400, L3300.1500, L3100.5420, L501.9186, L3300.4450, L500.4050 ####[facility] [address] [place], [place], [id number] Comprehensive Metabolic Prof ilon 10-20-2023 Albumin [Mass/Vol] 3.9 g/dL Normal 3.2-5.0 [facility] Comment on above: Performed By: #### L 501.9520, L509.6000, L506.0400, L3300.1500, L3100.5420, L501.9186, L3300.4450, L500.4050 ####[facility] [address] [place], [address] Albumin/Globulin [Mass ratio] 1.2 {ratio} Normal 0.9-2.4 [facility] Comment on above: Performed By: #### L 501.9520, L509.6000, L506.0400, L3300.1500, L3100.5420, L501.9186, L3300.4450, L500.4050 ####[facility] [address] [place], [address] ALK P 88 U/L Normal 45-117 [facility] Comment on above: Performed By: #### L 501.9520, L509.6000, L506.0400, L3300.1500, L3100.5420, L501.9186, L3300.4450, L500.4050 ####[facility] [address] [place], [address] ALT [Catalytic activity/Vol] 56 U/L Normal 13-56 [facility] Comment on above: Performed By: #### L 501.9520, L509.6000, L506.0400, L3300.1500, L3100.5420, L501.9186, L3300.4450, L500.4050 ####[facility] [address] [place], [address] AST [Catalytic activity/Vol] 21 U/L Normal 15-37 [facility] Comment on above: Performed By: #### L 501.9520, L509.6000, L506.0400, L3300.1500, L3100.5420, L501.9186, L3300.4450, L500.4050 ####[facility] [address] [place], [address] Bilirubin [Mass/Vol] 0.20 mg/dL Normal 0.20-1.00 [facility] Comment on above: Result Comment: For patients on eltrombopag therapy, use of Dimension [place] TBIL is not recommended. Performed By: #### L 501.9520, L509.6000, L506.0400, L3300.1500, L3100.5420, L501.9186, L3300.4450, L500.4050 ####[facility] [address] [place], [address] BUN/CRE 20.1 RATIO High 10-20 [facility] Comment on above: Performed By: #### L 501.9520, L509.6000, L506.0400, L3300.1500, L3100.5420, L501.9186, L3300.4450, L500.4050 ####[facility] [address] [place], [address] CA,Total 9.0 mg/dL Normal 8.5-10.1 [facility] Comment on above: Performed By: #### L 501.9520, L509.6000, L506.0400, L3300.1500, L3100.5420, L501.9186, L3300.4450, L500.4050 ####[facility] [address] [place], [address] Chloride [Moles/Vol] 109 mmol/L High 98-107 [facility] Comment on above: Performed By: #### L 501.9520, L509.6000, L506.0400, L3300.1500, L3100.5420, L501.9186, L3300.4450, L500.4050 ####[facility] [address] [place], [address] CO2 [Moles/Vol] 25.0 mmol/L Normal 21.0-32.0 [facility] Comment on above: Performed By: #### L 501.9520, L509.6000, L506.0400, L3300.1500, L3100.5420, L501.9186, L3300.4450, L500.4050 ####[facility] [address] [place], [address] Creatinine [Mass/Vol] 0.90 mg/dL Normal 0.55-1.02 [facility] Comment on above: Result Comment: The validity of the calculated GFR GFRAA in patients over 70 years has not been determined. Clinical correlation is essential. Performed By: #### L 501.9520, L509.6000, L506.0400, L3300.1500, L3100.5420, L501.9186, L3300.4450, L500.4050 ####[facility] [address] [place], [address] EST GFR - AA 101 mL/min Normal >60 [facility] Comment on above: Result Comment: Afri can [place] GFR Calc Performed By: #### L 501.9520, L509.6000, L506.0400, L3300.1500, L3100.5420, L501.9186, L3300.4450, L500.4050 ####[facility] [address] [place], [address] GAP 6 Normal 5-15 [facility] Comment on above: Performed By: #### L 501.9520, L509.6000, L506.0400, L3300.1500, L3100.5420, L501.9186, L3300.4450, L500.4050 ####[facility] [address] [place], [address] GFR/1.73 sq M.predicted among non-blacks MDRD (S/P/Bld) [Vol rate/Area] 83 mL/min/{1.73_m2} Normal >60 [facility] Comment on above: Result Comment: Non- GFR Calc Performed By: #### L 501.9520, L509.6000, L506.0400, L3300.1500, L3100.5420, L501.9186, L3300.4450, L500.4050 ####[facility] [address] [place], [address] Globulin (S) [Mass/Vol] 3.2 g/dL Normal 2.2-4.2 [facility] Comment on above: Performed By: #### L 501.9520, L509.6000, L506.0400, L3300.1500, L3100.5420, L501.9186, L3300.4450, L500.4050 ####[facility] [address] [place], [address] Glucose [Mass/Vol] 101 mg/dL Normal 74-106 [facility] Comment on above: Result Comment: Fast ing Glucose result from 100 to 125 mg/dL suggests IMPAIRED HOMEOSTASIS per A.D.A. criteria. Performed By: #### L 501.9520, L509.6000, L506.0400, L3300.1500, L3100.5420, L501.9186, L3300.4450, L500.4050 ####[facility] [address] [place], [address] Potassium [Moles/Vol] 3.7 mmol/L Normal 3.5-5.1 [facility] Comment on above: Performed By: #### L 501.9520, L509.6000, L506.0400, L3300.1500, L3100.5420, L501.9186, L3300.4450, L500.4050 ####[facility] [address] [place], [address] Sodium [Moles/Vol] 140 mmol/L Normal 136-145 [facility] Comment on above: Performed By: #### L 501.9520, L509.6000, L506.0400, L3300.1500, L3100.5420, L501.9186, L3300.4450, L500.4050 ####[facility] [address] [place], [address] T PROT 7.1 g/dL Normal 6.4-8.2 [facility] Comment on above: Performed By: #### L 501.9520, L509.6000, L506.0400, L3300.1500, L3100.5420, L501.9186, L3300.4450, L500.4050 ####[facility] [address] [place], [address] Urea nitrogen [Mass/Vol] 18 mg/dL Normal 7-18 [facility] Comment on above: Performed By: #### L 501.9520, L509.6000, L506.0400, L3300.1500, L3100.5420, L501.9186, L3300.4450, L500.4050 ####[facility] [address] [place], [address] Prolactinon 10-20-2023 PROLACTIN 35.0 ng/mL Normal [facility] Comment on above: Result Comment: NORMAL REFERENCE RANGES FEMALE NON- 2.2 - 30.3 ng/mL 8.1 - 347.6 ng/mL POST-MENOPAUSAL 0.7 - 31.5 ng/mL MALE 2.5 - 17.4 ng/mL Performed By: #### L 501.9520, L509.6000, L506.0400, L3300.1500, L3100.5420, L501.9186, L3300.4450, L500.4050 ####[facility] [address] [place], [address] T3 Total - Triiodothyronineo n 10-20-2023 T3 Total 1.14 ng/mL Normal 0.6-1.81 [facility] Comment on above: Order Comment: 0000 Performed By: #### L 501.9520, L509.6000, L506.0400, L3300.1500, L3100.5420, L501.9186, L3300.4450, L500.4050 ####[facility] [address] [place], [address] T4 Free Directon 10-20-2023 T4 FREE DIRECT 0.95 ng/dL Normal 0.76-1.46 [facility] Comment on above: Performed By: #### L 501.9520, L509.6000, L506.0400, L3300.1500, L3100.5420, L501.9186, L3300.4450, L500.4050 ####[facility] [address] [place], [address] Thyroid Stim Hormone (TSH)on 10-20-2023 TSH 2.29 uIU/mL Normal 0.358-3.74 [facility] Comment on above: Performed By: #### L 501.9520, L509.6000, L506.0400, L3300.1500, L3100.5420, L501.9186, L3300.4450, L500.4050 ####[facility] [address] [place], [address] Pulmonary Visit Reporton Pulmonary Visit Report [facility] [place] [id number] [place] [address] OFFICE VISIT Date of Service: 09/21/23 MR#: [id number] Acct: [id number] Name: JLUIS ZAMORAABELLA ROEL Rep #: [id number] : 2000 Provider: Dr. Escobar Briseno DO Age/Sex: 23/F Location: [facility] [place] Status: Signed Assessment and Plan Assessment and Plan (1) Lung nodule: Status: Chronic Plan: The patient has a known left lower lobe nodule, which has remained stable in size. In August 2022, she underwent CT-guided lung biopsy which demonstrated extensive necrosis with fibrosis and granulomatous inflammation. There was no evidence of malignancy. This could certainly be related to an underlying inflammatory condition such as sarcoidosis. However, the patient is asymptomatic from a respiratory perspective. Therefore, I would recommend continued clinical follow-up, with plans to repeat chest imaging if there is any change in her respiratory status. (2) Obesity: Status: Acute Plan: Weight loss through dietary modification and a graded exercise regimen is strongly encouraged. HPI HPI Comments Details: The patient is a 23-year-old female who presents to the clinic today for a routine scheduled follow- up office visit. If you recall, the patient was initially seen in our office in September 2019 after being referred for the evaluation of a lung mass. On September 19, 2021, the patient was evaluated in the emergency department due to reported cough, fever and tachycardia. As part of her work-up, a CTA chest was obtained. There was evidence of a masslike opacity measuring 2 x 1.6 cm in size in the left lower lobe with surrounding groundglass opacities. There was also an adjacent subpleural lung nodule in the left lower lobe adjacent to the fissure. There was evidence of mediastinal and hilar adenopathy as well. The patient was subsequently treated with an antimicrobial regimen and she improved symptomatically. In follow-up from the above radiographic findings, a CT chest without contrast was completed on October 23, 2021 and demonstrated near complete resolution of the left lower lobe masslike consolidation noted on prior imaging. Within the left lower lobe, adjacent to the fissure, there continues to be an approximate 1 cm nodule. Accordingly, a repeat CT chest without contrast was completed in mid March 2022. There was a persistent nodular density in the lateral aspect of the left lower lobe abutting the major fissure and measuring approximately 1.3 cm in size. A PET scan was then completed in April 2022 and found to be negative. She has had [address] scans of her abdomen now completed in April and again in July 2022 both of which demonstrated overall size stability in the size of her left lower lobe pulmonary nodule. On September 06, 2022, the patient underwent a CT- guided lung biopsy. Pathology was notable for extensive necrosis, focal fibrosis and granulomatous inflammation. Today, the patient continues to report overall stability in her breathing quality. She denies any shortness of breath, cough, fevers, chills or night sweats. Her weight and appetite have been stable. The patient recently completed college and is applying to [employer]. Intake Vital Signs 09/20/22 07:12 09/21/23 07:20 Height 5 ft 6 in 5 ft 6 in Weight: 245 lb BMI 39.5 BP 144/88 H Blood Pressure Location Rt brachial Position Sitting Respiration 20 H Pulse 105 H Pulse Source Monitor Temp 98.0 F Temperature Source Temporal Artery Pulse Oximetry (%) 98 Oxygen Delivery Method room air Intake Visit Reasons: 1 Y FU Chief Complaint: Routine FU [employer] App[employer]ice Required: No Accompanied by: Self Allergies Iodinated Contrast Media Allergy (Verified 09/21/23 10:51) Hives Medications ???Medication ???Instructions ???Recorded ???Confirmed ???Type hyoscyamine 0.15 mg tablet mg PO 05/02/22 09/21/23 History levonorgestrel 20.4 mcg/24 hr (up 1 device intrauterine ONCE 05/02/22 09/21/23 History to 8 yrs) 52 mg intrauterine device (Liletta) sacrosidase 8,500 unit/mL oral 2 ml PO 6XD #300 mL 11/16/22 09/21/23 Rx solution (Sucraid) linaclotide 145 mcg capsule 145 mcg PO DAILY 05/12/23 09/21/23 History (Linzess) hydroxyzine HCl 50 mg tablet 50 mg PO TID 09/21/23 09/21/23 History levothyroxine 50 mcg tablet 50 mcg PO QDAY 09/21/23 09/21/23 History sertraline 100 mg tablet 100 mg PO QDAY 09/21/23 09/21/23 History PFSH Medical History Hemorrhoids Fatigue Physical exam, pre-employment Wears contact lenses Wears glasses Anxiety Injury of head and neck Non-smoker Congenital sucrase-isomaltase deficiency Seizure disorder IBS (irritable bowel syndrome) Abdominal pain Family History (Reviewe (more content not included)... Normal [facility] Serum or plasma cortisol martha surement (mass/volume)on 03-18-2023 Cortisol [Mass/Vol] 0.80 ug/dL 3.44-22.45 [facility] Comment on above: Adult (AM) 5.27 - 22 .45 ug/dL Adult (PM) 3.44 - 16.76 ug/dLPlease note revised CORTISOL reference range effective 2019. Absolute lymphocyte counton 03-15-2023 Lymphocytes Auto (Unsp spec) [#/Vol] 2.27 10*3/uL 0.83-4.51 [facility] Basophil percentageon 2022 Basophils/100 WBC (Bld) 0.3 % 0-1 [facility] Bilirubin [Mass/Vol] 0.70 mg/dL 0.20-1.00 [facility] Comment on above: For patients on eltr ombopag therapy, use of Dimension [place] TBIL is not recommended. Chloride [Moles/Vol] 106 mmol/L 98-107 [facility] Eosinophils/100 WBC (Bld) 1.3 % 0-5 [facility] Glucose [Mass/Vol] 89 mg/dL 74-106 [facility] Neutrophils (Bld) [#/Vol] 3.8 10*3/uL 2.0-7.7 [facility] Neutrophils/100 WBC (Bld) 56.3 % 47-70 [facility] Potassium [Moles/Vol] 3.4 mmol/L 3.5-5.1 [facility] Protein [Mass/Vol] 7.8 g/dL 6.4-8.2 [facility] Sodium [Moles/Vol] 137 mmol/L 136-145 [facility] Testosterone [Mass/Vol] 36.98 ng/dL [facility] Comment on above: CENTRAL 90% REFERENC E RANGES MALE AGE <50 197.44 - 669.58 ng/dL MALE AGE > or = 50 187.72 - 684.19 ng/dL FEMALE AGE <50 8.38 - 35.01 ng/dL FEMALE AGE > or = 50 <7.00 - 35.92 ng/dL Effective as of 11/17/20 WBC (Bld) [#/Vol] 6.8 10*3/uL 4.4-11.0 [facility] Blood erythrocytes count (nu mber/volume)on 03-15-2023 RBC (Bld) [#/Vol] 4.51 10*6/uL 4.2-5.4 [facility] Blood hemoglobin measurement (mass/volume)on 03-15-2023 Hemoglobin (Bld) [Mass/Vol] 13.9 g/dL 12.0-15.0 [facility] Blood lymphocytes/100 leukoc yteson 03-15-2023 Lymphocytes/100 WBC (Bld) 33.4 % 19-41 [facility] Blood monocytes/100 leukocyt eson 03-15-2023 Monocytes/100 WBC (Bld) 8.4 % 0-10 [facility] Blood platelet mean volumeon 03-15-2023 Platelet mean volume (Bld) [Entitic vol] 10.5 fL 6.2-12.0 [facility] Determination of erythrocyte mean corpuscular volume (MCV)on 03-15-2023 MCV (RBC) [Entitic vol] 90.0 fL 81-99 [facility] Hematocrit Auto (Bld) [Volum e fraction]on 03-15-2023 Hematocrit (Bld) [Volume fraction] 40.6 % 37-47 [facility] Laboratory - Chemistry and C hemistry - challengeon 03-15-2023 ALP [Catalytic activity/Vol] 92 U/L 45-117 [facility] ALT [Catalytic activity/Vol] 34 U/L 13-56 [facility] CO2 [Moles/Vol] 26.0 mmol/L 21.0-32.0 [facility] Free T4 [Mass/Vol] 0.97 ng/dL 0.76-1.46 [facility] Globulin (S) [Mass/Vol] 3.7 g/dL 2.2-4.2 [facility] Urea nitrogen/Creatinine [Mass ratio] 13.7 mg/mg 10-20 [facility] Laboratory - Hematology and Cell countson 03-15-2023 Erythrocyte distribution width (RBC) [Entitic vol] 38.7 fL 35.1-43.9 [facility] Erythrocyte distribution width (RBC) [Ratio] 11.9 % 11.6-14.6 [facility] Immature granulocytes/100 WBC (Bld) 0.300 % 0.0-0.9 [facility] Comment on above: IG% - Immature Granu locytes (promyelocytes, myelocytes and metamyelocytes) > 1% indicates that a LEFT SHIFT is Present. MCH (RBC) [Entitic mass] 30.8 pg 27.0-32.0 [facility] Nucleated RBC/100 WBC (Bld) [Ratio] 0 % 0-5 [facility] MCHC Auto (RBC) [Mass/Vol]on 03-15-2023 MCHC (RBC) [Mass/Vol] 34.2 g/dL 32-36 [facility] No Panel Informationon 03-15 Estimated GFR (MDRD) Amer 95 mL/min >60 [facility] Comment on above: GFR Calc Estimated GFR (MDRD) Non-Af Amer 78 mL/min >60 [facility] Comment on above: Non- GFR Calc Insulin Level 22.9 mU/L 2.6-37.6 [facility] Thyroid Stimulating Hormone (TSH) 5.36 uIU/mL 0.358-3.74 [facility] Platelets bldon 03-15-2023 Platelets (Bld) [#/Vol] 288 10*3/uL 150-450 [facility] Serum or plasma 17-hydroxypr ogesterone measurement (mass/volume)on 03-15-2023 17-Hydroxyprogesterone [Mass/Vol] 47 ng/dL . [facility] Comment on above: Adult Female Follicu lar 15 - 70 Luteal 35 - 290Performed at: [facility] [address] [id number] Director: Ping Wang MD, Phone: [phone] Serum or plasma albumin promise urement (mass/volume)on 03-15-2023 Albumin [Mass/Vol] 4.1 g/dL 3.2-5.0 [facility] Serum or plasma albumin/glob ulin mass ratioon 03-15-2023 Albumin/Globulin [Mass ratio] 1.1 {ratio} 0.9-2.4 [facility] Serum or plasma calcium promise urement (mass/volume)on 03-15-2023 Calcium [Mass/Vol] 9.5 mg/dL 8.5-10.1 [facility] Serum or plasma cortisol martha surement (mass/volume)on 03-15-2023 Cortisol [Mass/Vol] 20.90 ug/dL 3.44-22.45 [facility] Comment on above: Adult (AM) 5.27 - 22 .45 ug/dL Adult (PM) 3.44 - 16.76 ug/dLPlease note revised CORTISOL reference range effective 2019. Serum or plasma creatinine m easurement (mass/volume)on 03-15-2023 Creatinine [Mass/Vol] 0.95 mg/dL 0.55-1.02 [facility] Comment on above: The validity of the calculated GFR & GFRAA in patients over 70 years has not been determined. Clinical correlation is essential. Serum or plasma urea nitroge n measurement (mass/volume)on 03-15-2023 Urea nitrogen [Mass/Vol] 13 mg/dL 7-18 [facility] Thin prep Papanicolaou smear with manual screeningon 03-15-2023 Thin prep Papanicolaou smear with manual screening 16 U/L 15-37 [facility] Thin prep Papanicolaou smear with manual screening 5 5-15 [facility] No Panel InformationOrdered By: Mendez Velasco on 11-23-2022 Adrenocorticotropic Hormone 16.4 pg/mL 7.2-63.3 [facility] Comment on above: ACTH reference inter melvin for samples collected between 7 and10 AM. C-Peptide 3.2 ng/mL 1.1-4.4 [facility] Comment on above: C-Peptide reference interval is for fasting patients. Insulin Level 19.8 mU/L 2.6-37.6 [facility] Serum or plasma angiotensin converting enzyme measurement (enzymatic activity/volume)Ordered By: Mendez Velasco on 11-23-2022 Angiotensin converting enzyme [Catalytic activity/Vol] 50 U/L 1482 [facility] Comment on above: Performed at: [address] Director: Carl Shepard PhD, Phone: [phone] Serum or plasma cortisol martha surement (mass/volume)Ordered By: Mendez Velasco on 11-23-2022 Cortisol [Mass/Vol] 23.90 ug/dL 3.44-22.45 [facility] Comment on above: Adult (AM) 5.27 - 22 .45 ug/dL Adult (PM) 3.44 - 16.76 ug/dLPlease note revised CORTISOL reference range effective 2019. Tucker 09-14-2022 EMY Telephone (ENDTWN) ----- TIMOTHY ZAMORA ([id number]) 2 F Date Time Provider Department 09/14/22 ZAHIRA BILL During your visit today, we recorded the following information about you: Mireya Rios Ma 09/14/2022 12:12 PM Signed Type of form: Outside lab results Form received via fax When form is completed, Scan form into Epic Form has been forwarded to Physician Desk: Dr. Fly Bill MD 09/26/2022 4:44 PM Signed Please send documents for scanning into [employer]. Thanks, Zahira Bill MD, MPH Mireya Rios Ma 09/28/2022 7:20 AM Signed Sent for scanning. Mireya Rios Ma Allergies As of Date: 09/14/2022 Noted Allergy Reaction IODINATED CONTRAST MEDIA 08/10/2022 4 - Hives Date Reviewed: 09/05/2022 Reviewed by: Zahira Bill MD - Fully Assessed Reason for Visit: Outside Lab Results [753] Cmt: [facility] Order(s):DHEA-SULFATE BLOOD (AK,AV,EU,FV,HL,VIVIAN,MM,SP) [2227280] Order #: [id number] ACTH BLOOD (AK,AV,EU,FV,HL,VIVIAN,MM,SP) [5470942] Order #: [id number] C-PEPTIDE BLOOD (AK,AV,EU,FV,HL,VIVIAN,MM,SP) [8925601] Order #: [id number] MICROALBUMIN URINE B/O [2565683] Order #: [id number] CREATININE 24 HR URINE (AK,AV,EU,FV,HL,VIVIAN,MM,SP) [5123829] Order #: [id number] HGBA1C B/O [6385233] Order #: [id number] LIPID PANEL (EXTERNAL) [9765575] Order #: [id number] CMP (EXTERNAL) [7716970] Order #: [id number] PROLACTIN BLOOD (AK,AV,EU,FV,HL,VIVIAN,MM,SP) [5964919] Order #: [id number] FREE T4 [1271817] Order #: [id number] TSH (EXTERNAL) [1469206] Order #: [id number] INSULIN ASSAY BLOOD (AK,AV,EU,FV,HL,VIVIAN,MM,SP) [9547189] Order #: [id number] CORTISOL BLOOD (AK,AV,EU,FV,HL,VIVIAN,MM,SP) [3370506] Order #: [id number] Prescriptions as of 09/28/2022 - levonorgestrel (LILETTA INTRAUTERINE) - Sacrosidase (SUCRAID) 8,500 unit/mL soln Take 2 ml with food up to six times daily. - hyoscyamine sulfate 0.125 mg ODT Take by mouth as needed once in two weeks. - loratadine (CLARITIN) 10 mg tablet Take one tablet by mouth daily. Problem List As Of Date 09/14/2022 Noted Resolved Abnormal gastrointestinal positron emission satish*05/11/2022 Irritable bowel syndrome [K58.9] 09/05/2022 Lung mass [R91.8] 09/05/2022 Obesity [E66.9] 09/05/2022 Pediatric overweight [E66.3] 10/20/2011 Sucrase-isomaltase deficiency [E74.31] 12/13/2018 Encounter Status:Closed by MIREYA RIOS MA on 09/28/22 Normal [facility] 24 hour urine creatinine martha surement (mass/time)on 09-13-2022 Creatinine (24H U) [Mass/Time] 1.84 g/24 HR 0.70-1.90 [facility] 24 hour urine free cortisol measurement (mass/time)on 09-13-2022 Cortisol Free (24H U) [Mass/Time] 26 ug/24 hr 6-42 [facility] Comment on above: Performed at: [facility] [address] [id number] Director: Ping Wang MD, Phone: [phone] Laboratory - Specimen inform ationon 09-13-2022 Collection duration (U) 24.0 HOURS 24.0-24.0 [facility] Quantitative urine free darrell isol measurement (mass/volume)on 09-13-2022 Cortisol Free (U) [Mass/Vol] 11 ug/L Undefined [facility] Urine creatinine measurement (mass/volume)on 09-13-2022 Creatinine (U) [Mass/Vol] 77.30 mg/dL NO RANGE EST. [facility] Urine volume measurementon 0 09-13-2022 Specimen volume (U) 2.40 L [facility] ACTH BLOOD (AK,AV,EU,FV,HL,L U,MM,SP)on 09-12-2022 ACTH 36.6 [facility] Absolute lymphocyte counton 09-12-2022 Lymphocytes Auto (Unsp spec) [#/Vol] 1.78 10*3/uL 0.83-4.51 [facility] Basophil percentageon 2022 Basophils/100 WBC (Bld) 0.5 % 0-1 [facility] Bilirubin [Mass/Vol] 0.50 mg/dL 0.20-1.00 [facility] Comment on above: For patients on eltr ombopag therapy, use of Dimension [place] TBIL is not recommended. Chloride [Moles/Vol] 105 mmol/L 98-107 [facility] Cholesterol [Mass/Vol] 153 mg/dL <200 [facility] Comment on above: <200 mg/dL Desirable 200-240 mg/dL Borderline >240 mg/dL High Risk Eosinophils/100 WBC (Bld) 1.9 % 0-5 [facility] Glucose [Mass/Vol] 90 mg/dL 74-106 [facility] Neutrophils (Bld) [#/Vol] 3.3 10*3/uL 2.0-7.7 [facility] Neutrophils/100 WBC (Bld) 57.0 % 47-70 [facility] Potassium [Moles/Vol] 3.6 mmol/L 3.5-5.1 [facility] Protein [Mass/Vol] 7.5 g/dL 6.4-8.2 [facility] Sodium [Moles/Vol] 140 mmol/L 136-145 [facility] Triglyceride [Mass/Vol] 182 mg/dL <199 [facility] Comment on above: The drugs N-Acetylcy steine and Metamizole may falsely depress this assay.Serum Triglycerides Reference Interval Normal <150 mg/dL Borderline high 150 - 199 mg/dL High 200 - 499 mg/dL Very High > or = 500 mg/dL WBC (Bld) [#/Vol] 5.8 10*3/uL 4.4-11.0 [facility] Blood erythrocytes count (nu mber/volume)on 09-12-2022 RBC (Bld) [#/Vol] 4.42 10*6/uL 4.2-5.4 [facility] Blood hemoglobin measurement (mass/volume)on 09-12-2022 Hemoglobin (Bld) [Mass/Vol] 13.7 g/dL 12.0-15.0 [facility] Blood lymphocytes/100 leukoc yteson 09-12-2022 Lymphocytes/100 WBC (Bld) 30.5 % 19-41 [facility] Blood monocytes/100 leukocyt eson 09-12-2022 Monocytes/100 WBC (Bld) 9.8 % 0-10 [facility] Blood platelet mean volumeon 09-12-2022 Platelet mean volume (Bld) [Entitic vol] 10.3 fL 6.2-12.0 [facility] C-PEPTIDE BLOOD (AK,AV,EU,FV ,HL,VIVIAN,MM,SP)on 09-12-2022 C-Peptide 4.4 [facility] [facility] CMP (EXTERNAL)on 09-12-2022 Alk Phos Total 88 U/L 45 - 117 U/L [facility] AST [Catalytic activity/Vol] 28 U/L 8 - 37 U/L [facility] Bili Total 0.5 mg/dL 0.2 - 1 mg/dL [facility] CO2 [Moles/Vol] 24 mmol/L 21 - 32 MEQ/L [facility] GFR AFR AMER 111 mL/MIN [facility] GFR/1.73 sq M.predicted among non-blacks MDRD (S/P/Bld) [Vol rate/Area] 92 mL/min/{1.73_m2} Cl [facility] CORTISOL BLOOD (AK,AV,EU,FV, HL,VIVIAN,MM,SP)on 09-12-2022 Cortisol 23.50 [facility] CREATININE 24 HR URINE (AK,A V,EU,FV,HL,VIVIAN,MM,SP)on 09-12-2022 Creatine, 24 Hr Urn 1.84 [facility] Creatine, Urine 77.30 [facility] Urine Total Volume 2.4 [facility] DHEA-SULFATE BLOOD (AK,AV,EU ,FV,HL,VIVIAN,MM,SP)on 09-12-2022 DHEA-S 452.0 [facility] Determination of erythrocyte mean corpuscular volume (MCV)on 09-12-2022 MCV (RBC) [Entitic vol] 89.6 fL 81-99 [facility] Hematocrit Auto (Bld) [Volum e fraction]on 09-12-2022 Hematocrit (Bld) [Volume fraction] 39.6 % 37-47 [facility] INSULIN ASSAY BLOOD (AK,AV,E U,FV,HL,VIVIAN,MM,SP)on 09-12-2022 Insulin 26.5 [facility] LIPID PANEL (EXTERNAL)on Non-HDL Cholesterol [facility] TC:HDL Ratio [facility] Laboratory - Chemistry and C hemistry - challengeon 09-12-2022 ALP [Catalytic activity/Vol] 88 U/L 45-117 [facility] ALT [Catalytic activity/Vol] 60 U/L 13-56 [facility] CO2 [Moles/Vol] 24.0 mmol/L 21.0-32.0 [facility] Free T4 [Mass/Vol] 0.84 ng/dL 0.76-1.46 [facility] Globulin (S) [Mass/Vol] 3.7 g/dL 2.2-4.2 [facility] Urea nitrogen/Creatinine [Mass ratio] 22.8 mg/mg 10-20 [facility] Laboratory - Hematology and Cell countson 09-12-2022 Erythrocyte distribution width (RBC) [Entitic vol] 40.0 fL 35.1-43.9 [facility] Erythrocyte distribution width (RBC) [Ratio] 12.4 % 11.6-14.6 [facility] Immature granulocytes/100 WBC (Bld) 0.300 % 0.0-0.9 [facility] Comment on above: IG% - Immature Granu locytes (promyelocytes, myelocytes and metamyelocytes) > 1% indicates that a LEFT SHIFT is Present. MCH (RBC) [Entitic mass] 31.0 pg 27.0-32.0 [facility] Nucleated RBC/100 WBC (Bld) [Ratio] 0 % 0-5 [facility] MCHC Auto (RBC) [Mass/Vol]on 09-12-2022 MCHC (RBC) [Mass/Vol] 34.6 g/dL 32-36 [facility] No Panel Informationon 09-12 Adrenocorticotropic Hormone 36.6 pg/mL 7.2-63.3 [facility] Comment on above: ACTH reference inter melvin for samples collected between 7 and10 AM. C-Peptide 4.4 ng/mL 1.1-4.4 [facility] Comment on above: C-Peptide reference interval is for fasting patients.Performed at: [address] [id number] Director: Carl Shepard PhD, Phone: [phone] Dehydroepiandrosterone Sulfate 452.0 ug/dL 110.0-431. 7 [facility] Estimated GFR (MDRD) Amer 111 mL/min >60 [facility] Comment on above: GFR Calc Estimated GFR (MDRD) Non-Af Amer 92 mL/min >60 [facility] Comment on above: Non- GFR Calc Insulin Level 26.5 mU/L 2.6-37.6 [facility] Thyroid Stimulating Hormone (TSH) 2.28 uIU/mL 0.358-3.74 [facility] PROLACTIN BLOOD (AK,AV,EU,FV ,HL,VIVIAN,MM,SP)on 09-12-2022 Prolactin 32.3 [facility] Platelets bldon 09-12-2022 Platelets (Bld) [#/Vol] 260 10*3/uL 150-450 [facility] Serum or plasma albumin promise urement (mass/volume)on 09-12-2022 Albumin [Mass/Vol] 3.8 g/dL 3.2-5.0 [facility] Serum or plasma albumin/glob ulin mass ratioon 09-12-2022 Albumin/Globulin [Mass ratio] 1.0 {ratio} 0.9-2.4 [facility] Serum or plasma calcium promise urement (mass/volume)on 09-12-2022 Calcium [Mass/Vol] 9.3 mg/dL 8.5-10.1 [facility] Serum or plasma cholesterol in HDL measurement (mass/volume)on 09-12-2022 Cholesterol in HDL [Mass/Vol] 49 mg/dL >40 [facility] Comment on above: The drugs N-Acetylcy steine and Metamizole may falsely depress this assay. Reference Range HDL <40 mg/dL Low HDL Cholesterol HDL >or= 60 mg/dL High HDL Cholesterol Serum or plasma cholesterol in VLDL measurement (mass/volume)on 09-12-2022 Cholesterol in VLDL [Mass/Vol] 36 mg/dL 5-40 [facility] Serum or plasma cortisol martha surement (mass/volume)on 09-12-2022 Cortisol [Mass/Vol] 23.50 ug/dL 3.44-22.45 [facility] Comment on above: Adult (AM) 5.27 - 22 .45 ug/dL Adult (PM) 3.44 - 16.76 ug/dLPlease note revised CORTISOL reference range effective 2019. Serum or plasma creatinine m easurement (mass/volume)on 09-12-2022 Creatinine [Mass/Vol] 0.83 mg/dL 0.55-1.02 [facility] Comment on above: The validity of the calculated GFR & GFRAA in patients over 70 years has not been determined. Clinical correlation is essential. Serum or plasma low density lipoprotein (LDL) cholesterol measurement (mass/volume)on 09-12-2022 Cholesterol in LDL [Mass/Vol] 68 mg/dL 0-130 [facility] Serum or plasma prolactin me asurement (mass/volume)on 09-12-2022 Prolactin [Mass/Vol] 32.3 ng/mL [facility] Comment on above: NORMAL REFERENCE RAN GES FEMALE NON- 2.2 - 30.3 ng/mL 8.1 - 347.6 ng/mL POST-MENOPAUSAL 0.7 - 31.5 ng/mL MALE 2.5 - 17.4 ng/mL Serum or plasma urea nitroge n measurement (mass/volume)on 09-12-2022 Urea nitrogen [Mass/Vol] 19 mg/dL 7-18 [facility] TSH (EXTERNAL)on 09-12-2022 TSH 2.28 IU/ml 0.2 - 5.6 IU/ml [facility] Thin prep Papanicolaou smear with manual screeningon 09-12-2022 Thin prep Papanicolaou smear with manual screening 28 U/L 15-37 [facility] Thin prep Papanicolaou smear with manual screening 11 5-15 [facility] Whole blood hemoglobin A1c/t otal hemoglobin ratio (mass fraction)on 09-12-2022 HbA1c (Bld) [Mass fraction] 5.0 % 3.8-5.6 [facility] Comment on above: Normal < 5.7 % Predi abetic 5.7 - 6.4 % Diabetic >or= 6.5 % Please note range changes. CORTISOL SALIVAon 09-10-2022 CORTISOL, SALIVA 0.042 ug/dL Normal [facility] Comment on above: Order Comment: Speci men Type: SWAB Ordering Facility: [facility] Address: [address] [place] [phone] Result Comment: INTE RPRETIVE INFORMATION: Cortisol, Saliva For collection at 2300 hr. the normal cortisol concentration is less than 0.112 ug/dL. Patients with Cushings Syndrome have concentrations of 0.112 ug/dL or greater. a.m. ([id number]) p.m. (noon-1800) Males 2.5-7 years 0.034-0.645 ug/dL 0.053-0.607 ug/dL 8-11 years 0.084-0.839 ug/dL less than 0.215 ug/dL 12-18 years 0.021-0.883 ug/dL less than 0.259 ug/dL 19-30 years 0.112-0.743 ug/dL less than 0.308 ug/dL 31-50 years 0.122-1.551 ug/dL less than 0.359 ug/dL 51 and older 0.112-0.812 ug/dL less than 0.228 ug/dL Females 2.5-7 years 0.034-0.645 ug/dL 0.053-0.607 ug/dL 8-11 years 0.084-0.839 ug/dL less than 0.215 ug/dL 12-18 years 0.021-0.883 ug/dL less than 0.259 ug/dL 19-30 years 0.272-1.348 ug/dL less than 0.359 ug/dL 31-50 years 0.094-1.515 ug/dL less than 0.181 ug/dL 51 and older 0.149-0.739 ug/dL 0.022-0.254 ug/dL Performed by [facility], [address] [place] [address] [email or web address], Kostas Barnett MD, PHD, Lab. Director Performed By: #### S DARRELL #### [facility] CLIA [id number] [address] [place] [address] CORTISOL SALIVAon 09-09-2022 CORTISOL, SALIVA 0.050 ug/dL Normal [facility] Comment on above: Order Comment: Speci men Type: SWAB Ordering Facility: [facility] Address: [address] [place] [phone] Result Comment: INTE RPRETIVE INFORMATION: Cortisol, Saliva For collection at 2300 hr. the normal cortisol concentration is less than 0.112 ug/dL. Patients with Cushings Syndrome have concentrations of 0.112 ug/dL or greater. a.m. ([id number]) p.m. (noon-1800) Males 2.5-7 years 0.034-0.645 ug/dL 0.053-0.607 ug/dL 8-11 years 0.084-0.839 ug/dL less than 0.215 ug/dL 12-18 years 0.021-0.883 ug/dL less than 0.259 ug/dL 19-30 years 0.112-0.743 ug/dL less than 0.308 ug/dL 31-50 years 0.122-1.551 ug/dL less than 0.359 ug/dL 51 and older 0.112-0.812 ug/dL less than 0.228 ug/dL Females 2.5-7 years 0.034-0.645 ug/dL 0.053-0.607 ug/dL 8-11 years 0.084-0.839 ug/dL less than 0.215 ug/dL 12-18 years 0.021-0.883 ug/dL less than 0.259 ug/dL 19-30 years 0.272-1.348 ug/dL less than 0.359 ug/dL 31-50 years 0.094-1.515 ug/dL less than 0.181 ug/dL 51 and older 0.149-0.739 ug/dL 0.022-0.254 ug/dL Performed by [facility], [address] [place] [address] [email or web address], Kostas Barnett MD, PHD, Lab. Director Performed By: #### S DARRELL #### [facility] CLIA [id number] [address] [place] [address] CNOVon 09-05-2022 CNOV Office Visit (ENDTWN ) ----- TIMOTHY ZAMORA ([id number]) 2 F Date Time Provider Department 09/05/22 1:30 PM ZAHIRA BILL During your visit today, we recorded the following information about you: Pulse Blood pressure Weight Height 104/minute 133/81 108 kg 1.73 m Zahira Bill MD 09/07/2022 3:03 PM Signed DATE: 09/05/2022 ENDOCRINOLOGY OUTPATIENT NOTE Ms. Timothy Zamora is a 22 year old female who presents with ? Alina. 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 30 lb weight gain in the past few months. No steroid use. No easy bruising. New stretch aranda + No muscle weakness. Has IBS and sucrose-isomaltase deficiency and is treated with sucraid for this. Not a smoker. Has Liletta IUD in situ. She reports weight gain around her abdomen and neck since 2021. Started Liletta since October 2021. Menarche at age 12, regular before starting Liletta. She did not like the BCP earlier. PET scan lit up head of pancreas (physiologic I think) and CT did not show any abnormality. History reviewed. No pertinent past medical history. No past surgical history on file. Current Outpatient Medications Medication Sig hyoscyamine sulfate 0.125 mg ODT levonorgestrel (LILETTA INTRAUTERINE) No current facility-administered medications for this visit. Social History Tobacco Use Smoking status: Never Smokeless tobacco: Never ALLERGIES Allergen Reactions Iodinated Contrast * Hives No family history on file. Review of Systems: Answers submitted by the patient for this visit: Endocrine Review of Systems (Submitted on 08/29/2022) Fatigue: Yes Night Sweats: No Recent Unintentional Weight Change: Yes Skin Color Changes: No Post-Nasal Drip: No Thyroid Pain (lower neck): No Trouble Swallowing: No Vision Disturbance: No Chest Pain: No Leg Swelling: No Blood Clots?: No Leg Pain while walking?: No Difficulty Breathing?: No Heartburn: Yes Nausea: Yes Vomiting?: No Diarrhea: No Constipation: Yes Abdominal Pain: Yes Bone Pain?: No Muscle Aches: No Muscle Weakness: No Joint Pain or Stiffness: No Headaches: Yes Dizziness: No Numbness?: No Urgency to Urinate?: No Increased Urination?: No Slow or Small Urine Stream?: No Are your menstrual cycles regular?: No Are your menstrual cycles irregular?: No Have your menstrual cycles stopped?: Yes Flushing?: No Hot Flashes?: No Increased Thirst: Yes Change in Body Hair?: No Cold Intolerance: No Heat Intolerance?: No Physical Examination BP 133/81 Pulse 104 Wt 238 lb (108.0kg) General: alert and oriented X 3, well appearing, pleasant and in no acute distress HEENT: eyes without erythema or icterus, no neck lymphadenopathy or mass. No goiter or palpable thyroid nodule Skin: no rash, nail changes Cardiac: RRR, no murmur gallop or rub, no peripheral edema Respiratory: CTAX2, no wheezing or rhonchi Impression and Plan: 22 year old woman with her parents to the office visit to find out if she does have [place]'s. No clinical or biochemical evidence of stigmata of hypercortisolism. Will do testing to ensure, including salivary cortisol levels. She also wonders about insulin resistance and will check those levels also. Zahira Bill MD, MPH Endocrinology Urvashi Urrutia RN 09/05/2022 2:48 PM Signed Demonstration of Cortisol saliva kits use provided to patient . Patient was taught how to collect saliva and submit to lab. Patient performed return demonstration with confidence and required minimal verbal cueing. No questions or concerns voiced. Allergies As of Date: 09/05/2022 Noted Allergy Reaction IODINATED CONTRAST MEDIA 08/10/2022 4 - Hives Date Reviewed: 09/05/2022 Reviewed by: Zahira Bill MD - Fully Assessed Reason for Visit: Follow Up [171] Cmt: alina and an insulinoma Primary Visit Diagnosis:Class 2 obesity without serious comorbidity with body mass index (BMI) of 38.0 to 38.9 in adult, unspecified obesity type [E66.9, Z68.38] Order(s):Sacrosidase (SUCRAID) 8,500 unit/mL solnTake 2 ml with food up to six times daily.Disp: Rfl: hyoscyamine sulfate 0.125 mg ODTTake by mouth as needed once in two weeks.Disp: Rfl: loratadine (CLARITIN) 10 mg tabletTake one tablet by mouth daily.Disp: Rfl: CORTISOL SALIVA [SQSCORT] Order #: [id number]. #:[id number] CORTISOL SALIVA [SQSCORT] Order #: [id number]. #:[id number] TSH BLD [SQTSH] Order #: [id number] FUTURE T4 FREE/FREE THYROX [SQFT4] Order #: [id number] FUTURE CBC [SQCBC] Order #: [id number] FUTURE COMP METABOLIC PANEL [SQCMP] Order #: [id number] FUTURE TESTOSTERONE, FREE AND TOTAL [SQTFTEST] Order #: [id number] FUTURE HGB A1C [WFTLD8Q] Order #: [id number] FUTURE PROLACTIN BLD [SQPROL] Order #: [id number] FUTURE DHEA-S BLD [SQDHEAS] Order #: [id number] FUTURE CORTISOL BLD [SQCOR] Order #: 198 (more content not included)... Normal [facility] INR in Blood by Coagulation assayOrdered By: Dr. Briseno on 09-05-2022 INR Coag (Bld) [Relative time] 1.0 {INR} [facility] Laboratory - CoagulationOrde red By: Dr. Briseno on 09-05-2022 aPTT Coag (Bld) [Time] 33.8 s 24.1-36.2 [facility] PT Coag (PPP) [Time] 12.8 s 11.7-14.9 [facility] Platelets bldOrdered By: Dr. Briseno on 09-05-2022 Platelets (Bld) [#/Vol] 267 10*3/uL 150-450 [facility] CNPNon 08-10-2022 CNPN Telephone (ENDTWN) ----- TIMOTHY ZAMORA ([id number]) 2 F Date Time Provider Department 08/10/22 ZAHIRA BILL During your visit today, we recorded the following information about you: Mireya Rios Ma 08/10/2022 9:52 AM Signed Type of form: Outside medical records with labs Form received via fax When form is completed, Scan form into [employer] Form has been forwarded to Physician Desk: Dr. Fly Bill MD 09/05/2022 4:06 PM Signed Please send documents for scanning into [employer]. Thanks, Zahira Bill MD, MPH Mireya Rios Ma 09/07/2022 11:13 AM Signed Sent for scanning. Mireya Rios Ma Allergies As of Date: 08/10/2022 (Not on File) Date Reviewed: Never Reviewed Reason for Visit: Received Outside Medical Records [0197] Prescriptions as of 09/07/2022 - levonorgestrel (LILETTA INTRAUTERINE) - Sacrosidase (SUCRAID) 8,500 unit/mL soln Take 2 ml with food up to six times daily. - hyoscyamine sulfate 0.125 mg ODT Take by mouth as needed once in two weeks. - loratadine (CLARITIN) 10 mg tablet Take one tablet by mouth daily. Problem List As Of Date: 08/10/2022 (None) Encounter Status:Closed by GABRIEL ANDRADE MIREYA on 09/07/22 Normal [facility] No Panel InformationOrdered By: Mendez Velasco on 07-16-2022 Stool Calprotectin 19 ug/g 0-120 [facility] Comment on above: Concentration Interp retation Follow-Up<16 - 50 ug/g Normal None>50 -120 ug/g Borderline Re-evaluate in 4-6 weeks >120 ug/g Abnormal Repeat as clinically indicatedPerformed at: [facility] [id number] Director: Ping Wang MD, Phone: [phone] Stool Pancreatic Elastase > 500 >200 [facility] Comment on above: Result Units: ug Cari st./g Severe Pancreatic Insufficiency: <100 Moderate Pancreatic Insufficiency: 100 - 200 Normal: >200Performed at: [facility] [id number] Director: Ping Wang MD, Phone: [phone] Stool lactoferrin detection by immunoassayOrdered By: Mendez Velasco on 07-16-2022 Lactoferrin IA Ql (Stl) [facility] Absolute lymphocyte countOrd ered By: Mendez Velasco on 07-15-2022 Lymphocytes Auto (Unsp spec) [#/Vol] 1.77 10*3/uL 0.83-4.51 [facility] Atypical perinuclear antineu trophil cytoplasmic antibodies measurementOrdered By: Mendez Velasco on 07-15-2022 Neutrophil cytoplasmic Ab.perinuclear.atypical IF (S) [Titer] <1:20 titer Neg:<1:20 [facility] Comment on above: The atypical pANCA p attern has been observed in asignificant percentage of patients with ulcerative colitis,primary sclerosing cholangitis and autoimmune hepatitis. Basophil percentageOrdered B y: Mendez Velasco on 07-15-2022 Basophil percentage < 0.2 AI 0.0-0.9 [facility] Basophils/100 WBC (Bld) 0.5 % 0-1 [facility] Bilirubin [Mass/Vol] 0.40 mg/dL 0.20-1.00 [facility] Comment on above: For patients on eltr ombopag therapy, use of Dimension [place] TBIL is not recommended. Chloride [Moles/Vol] 107 mmol/L 98-107 [facility] Eosinophils/100 WBC (Bld) 1.8 % 0-5 [facility] Glucose [Mass/Vol] 105 mg/dL 74-106 [facility] Comment on above: Fasting Glucose resu lt from 100 to 125 mg/dL suggests IMPAIRED HOMEOSTASIS per A.D.A. criteria. LDH [Catalytic activity/Vol] 187 U/L 84-246 [facility] Neutrophils (Bld) [#/Vol] 3.7 10*3/uL 2.0-7.7 [facility] Neutrophils/100 WBC (Bld) 59.8 % 47-70 [facility] Potassium [Moles/Vol] 3.8 mmol/L 3.5-5.1 [facility] Protein [Mass/Vol] 7.3 g/dL 6.4-8.2 [facility] Sodium [Moles/Vol] 140 mmol/L 136-145 [facility] WBC (Bld) [#/Vol] 6.3 10*3/uL 4.4-11.0 [facility] Blood erythrocytes count (nu mber/volume)Ordered By: Mendez Velasco on 07-15-2022 RBC (Bld) [#/Vol] 4.49 10*6/uL 4.2-5.4 [facility] Blood hemoglobin measurement (mass/volume)Ordered By: Mendez Velasco on 07-15-2022 Hemoglobin (Bld) [Mass/Vol] 13.7 g/dL 12.0-15.0 [facility] Blood lymphocytes/100 leukoc ytesOrdered By: Mendez Velasco on 07-15-2022 Lymphocytes/100 WBC (Bld) 28.3 % 19-41 [facility] Blood monocytes/100 leukocyt esOrdered By: Mendez Velasco on 07-15-2022 Monocytes/100 WBC (Bld) 9.3 % 0-10 [facility] Blood platelet mean volumeOr dered By: Mendez Velasco on 07-15-2022 Platelet mean volume (Bld) [Entitic vol] 10.7 fL 6.2-12.0 [facility] Determination of erythrocyte mean corpuscular volume (MCV)Ordered By: Mendez Velasco on 07-15-2022 MCV (RBC) [Entitic vol] 88.9 fL 81-99 [facility] Erythrocyte sedimentation ra teOrdered By: Mendez Velasco on 07-15-2022 ESR (Bld) [Velocity] 10 mm/h 0-30 [facility] Hematocrit Auto (Bld) [Volum e fraction]Ordered By: Mendez Velasco on 07-15-2022 Hematocrit (Bld) [Volume fraction] 39.9 % 37-47 [facility] Interpretation of serum or p lasma protein pattern by immunofixation (narrative resultOrdered By: Mendez Velasco on 07-15-2022 Protein Fractions Immunofixation Sudhakar [Interp] See comment [facility] Comment on above: Result: Not Observed Laboratory - Chemistry and C hemistry - challengeOrdered By: Mendez Velasco on 07-15-2022 ALP [Catalytic activity/Vol] 76 U/L 45-117 [facility] ALT [Catalytic activity/Vol] 52 U/L 13-56 [facility] Amylase [Catalytic activity/Vol] 26 U/L 5-55 [facility] CO2 [Moles/Vol] 24.0 mmol/L 21.0-32.0 [facility] Urea nitrogen/Creatinine [Mass ratio] 16.8 mg/mg 10-20 [facility] Laboratory - Hematology and Cell countsOrdered By: Mendez Velasco on 07-15-2022 Erythrocyte distribution width (RBC) [Entitic vol] 38.5 fL 35.1-43.9 [facility] Erythrocyte distribution width (RBC) [Ratio] 12.0 % 11.6-14.6 [facility] Immature granulocytes/100 WBC (Bld) 0.300 % 0.0-0.9 [facility] Comment on above: IG% - Immature Granu locytes (promyelocytes, myelocytes and metamyelocytes) > 1% indicates that a LEFT SHIFT is Present. MCH (RBC) [Entitic mass] 30.5 pg 27.0-32.0 [facility] Nucleated RBC/100 WBC (Bld) [Ratio] 0 % 0-5 [facility] Auto (RBC) [Mass/Vol]Or dered By: Mendez Velasco on 07-15-2022 MCHC (RBC) [Mass/Vol] 34.3 g/dL 32-36 [facility] No Panel InformationOrdered By: Mendez Velasco on 07-15-2022 Addendum Document Comment . [facility] Comment on above: Protein electrophore sis scan will follow via computer,mail, or penal officer delivery. C-Peptide 7.0 ng/mL 1.1-4.4 [facility] Comment on above: C-Peptide reference interval is for fasting patients.Performed at: - [facility] [id number] Director: Carl Shepard PhD, Phone: [phone] at: [facility] [id number] Director: Ping Wang MD, Phone: [phone] CA 19-9 Antigen 13 U/mL 0-35 [facility] Comment on above: [facility] [employer] El ectrochemiluminescence Immunoassay(ECLIA)Values obtained with different assay methods or kits cannotbe used interchangeably. Results cannot be interpreted asabsolute evidence of the presence or absence of malignantdisease. Centromere B Antibody <0.2 AI 0.0-0.9 [facility] Endomysial IgA Antibody Negative Negative [facility] Estimated GFR (MDRD) Amer 132 mL/min >60 [facility] Comment on above: GFR Calc Estimated GFR (MDRD) Non-Af Amer 109 mL/min >60 [facility] Comment on above: Non- GFR Calc Immunoglobulin E 71 IU/mL 6-495 [facility] Immunoglobulin G4 15 mg/dL 2-96 [facility] Insulin Level 38.1 mU/L 2.6-37.6 [facility] [employer] Antibody <0.2 AI 0.0-0.9 [facility] Platelets bldOrdered By: Mariano Velasco on 07-15-2022 Platelets (Bld) [#/Vol] 263 10*3/uL 150-450 [facility] Serum DNA double strand anti body assay (units/volume)Ordered By: Mendez Velasco on 07-15-2022 DNA double strand Ab Qn (S) [IU]/mL 0-9 [facility] Comment on above: Negative <5 Equivoca l 5 - 9 Positive >9 Serum IgG subclass 1 measure ment (mass/volume)Ordered By: Mendez Velasco on 07-15-2022 IgG subclass 1 (S) [Mass/Vol] 394 mg/dL 248-810 [facility] Serum IgG subclass 2 measure ment (mass/volume)Ordered By: Mendez Velasco on 07-15-2022 IgG subclass 2 (S) [Mass/Vol] 268 mg/dL 130-555 [facility] Serum IgG subclass 3 measure ment (mass/volume)Ordered By: Mendezsloane Velasco on 07-15-2022 IgG subclass 3 (S) [Mass/Vol] 42 mg/dL 15-102 [facility] Serum Larissa-1 antibody assay (u nits/volume)Ordered By: Mendez Velasco on 07-15-2022 Larissa-1 extractable nuclear Ab Qn (S) <0.2 AI 0.0-0.9 [facility] Serum Scl-70 extractable nuc lear antibody assay (units/volume)Ordered By: Mendez Velasco on 07-15-2022 SCL-70 extractable nuclear Ab Qn (S) <0.2 AI 0.0-0.9 [facility] Serum Connor extractable nucl ear antibody detectionOrdered By: Mendez Velasco on 07-15-2022 Connor extractable nuclear Ab Ql (S) <0.2 AI 0.0-0.9 [facility] Serum [id number] measu rement by electrophoresisOrdered By: Mendez Velasco on 07-15-2022 Alpha 1 globulin Elph [Mass/Vol] 0.2 g/dL 0.0-0.4 [facility] Alpha 1 globulin Elph [Mass/Vol] 0.9 g/dL 0.4-1.0 [facility] Serum classic neutrophil cyt oplasmic antibody assay (units/volume)Ordered By: Mendez Velasco on 07-15-2022 Neutrophil cytoplasmic Ab.classic Qn (S) <1:20 titer Neg:<1:20 [facility] Serum globulin measurement ( mass/volume)Ordered By: Mendez Velasco on 07-15-2022 Globulin (S) [Mass/Vol] 2.9 g/dL 2.2-3.9 [facility] Serum or plasma C reactive p rotein measurement (mass/volume)Ordered By: Mendez Velasco on 07-15-2022 CRP [Mass/Vol] 5.01 mg/L 0.0-3.0 [facility] Comment on above: C-Reactive Protein ( CRP) provides useful information for thediagnosis, therapy and monitoring of inflammatory processesand associated diseases. For the evaluation of Relative Riskfor Cardiovascular Disease, a High Sensitivity CRP (HSCRP)should be ordered. Serum or plasma IgA measurem ent (mass/volume)Ordered By: Mendez Velsaco on 07-15-2022 IgA [Mass/Vol] 138 mg/dL 87-352 [facility] Serum or plasma IgG measurem ent (mass/volume)Ordered By: Mendez Velasco on 07-15-2022 IgG [Mass/Vol] 770 mg/dL [phone] [facility] IgG [Mass/Vol] Not Reportable [facility] Serum or plasma IgM measurem ent (mass/volume)Ordered By: Mendez Velasco on 07-15-2022 IgM [Mass/Vol] 98 mg/dL 26-217 [facility] Serum or plasma albumin promise urement (mass/volume)Ordered By: Mendez Velasco on 07-15-2022 Albumin [Mass/Vol] 3.9 g/dL 2.9-4.4 [facility] Serum or plasma albumin/glob ulin mass ratioOrdered By: Mendez Velasco on 07-15-2022 Albumin/Globulin [Mass ratio] 1.1 {ratio} 0.9-2.4 [facility] Serum or plasma [id number] protein tumor marker measurement (units/volume)Ordered By: Mendez Velasco on 07-15-2022 AFP.tumor marker Qn < 1.8 ng/mL 0.0-4.7 [facility] Comment on above: [employer] El ectrochemiluminescence Immunoassay(ECLIA)Values obtained with different assay methods or kits cannotbe used interchangeably. Results cannot be interpreted asabsolute evidence of the presence or absence of malignantdisease.This test is not interpretable in females. Serum or plasma beta globuli n measurement by electrophoresis (mass/volume)Ordered By: Mendez Velasco on 07-15-2022 Beta globulin Elph [Mass/Vol] 1.0 g/dL 0.7-1.3 [facility] Serum or plasma calcium promise urement (mass/volume)Ordered By: Mendez Velasco on 07-15-2022 Calcium [Mass/Vol] 9.1 mg/dL 8.5-10.1 [facility] Serum or plasma creatinine m easurement (mass/volume)Ordered By: Mendez Velasco on 07-15-2022 Creatinine [Mass/Vol] 0.72 mg/dL 0.55-1.02 [facility] Comment on above: The validity of the calculated GFR & GFRAA in patients over 70 years has not been determined. Clinical correlation is essential. Serum or plasma gamma globul in measurement by electrophoresis (mass/volume)Ordered By: Mendez Velasco on 07-15-2022 Gamma globulin Elph [Mass/Vol] 0.9 g/dL 0.4-1.8 [facility] Serum or plasma gastrin promise urement (mass/volume)Ordered By: Mendez Velasco on 07-15-2022 Gastrin [Mass/Vol] 12 pg/mL 0-115 [facility] Comment on above: Siemens Immulite 200 0 Immunochemiluminometric assay (ICMA)Values obtained with different assay methods or kits cannotbe used interchangeably. Results cannot be interpreted asabsolute evidence of the presence or absence of malignantdisease. Serum or plasma immunoelectr ophoresis interpretation (nominal result)Ordered By: Mendez Velasco on 07-15-2022 Interpretation IEP [Interp] Comment . [facility] Comment on above: No monoclonality det ected. Serum or plasma urea nitroge n measurement (mass/volume)Ordered By: Mendez Velasco on 07-15-2022 Urea nitrogen [Mass/Vol] 12 mg/dL 7-18 [facility] Serum perinuclear neutrophil cytoplasmic antibody titer by immunofluorescenceOrdered By: Mendez Velasco on 07-15-2022 Neutrophil cytoplasmic Ab.perinuclear IF (S) [Titer] <1:20 titer Neg:<1:20 [facility] Comment on above: The presence of posi tive fluorescence exhibiting P-ANCA orC-ANCA patterns alone is not specific for the diagnosis ofWegener's Granulomatosis (WG) or microscopic polyangiitis.Decisions about treatment should not be based solely onANCA IFA results. The [employer] ANCA Group Consensusrecommends follow up testing of positive sera with both [place]-3 and MPO-ANCA enzyme immunoassays. As many as 5% serumsamples are positive only by EIA. Ref. AM J Clin [id number];111:507-513. Serum tissue transglutaminas e IgA antibody assay (units/volume)Ordered By: Mendez Velasco on 07-15-2022 tTG IgA Qn (S) <2 U/mL 0-3 [facility] Comment on above: Negative 0 - 3 Weak Positive 4 - 10 Positive >10 Tissue Transglutaminase (tTG) has been identified as the endomysial antigen. Studies have demonstr- ated that endomysial IgA antibodies have over 99% specificity for gluten sensitive enteropathy. Thin prep Papanicolaou smear with manual screeningOrdered By: Mendez Velasco on 07-15-2022 Thin prep Papanicolaou smear with manual screening 22 U/L 15-37 [facility] Thin prep Papanicolaou smear with manual screening 9 5-15 [facility] Thin prep Papanicolaou smear with manual screening 1.4 0.7-1.7 [facility] Total protein bloodOrdered B y: Mendez Velasco on 07-15-2022 Protein [Mass/Vol] 6.8 g/dL 6.0-8.5 [facility] Basophil percentageOrdered B y: Dr. Montana on 04-21-2022 Chloride [Moles/Vol] 108 mmol/L 98-107 [facility] Cholesterol [Mass/Vol] 147 mg/dL <200 [facility] Comment on above: <200 mg/dL Desirable 200-240 mg/dL Borderline >240 mg/dL High Risk Glucose [Mass/Vol] 90 mg/dL 74-106 [facility] Potassium [Moles/Vol] 4.5 mmol/L 3.5-5.1 [facility] Sodium [Moles/Vol] 140 mmol/L 136-145 [facility] Triglyceride [Mass/Vol] 91 mg/dL <199 [facility] Comment on above: The drugs N-Acetylcy steine and Metamizole may falsely depress this assay.Serum Triglycerides Reference Interval Normal <150 mg/dL Borderline high 150 - 199 mg/dL High 200 - 499 mg/dL Very High > or = 500 mg/dL WBC (Bld) [#/Vol] 4.2 10*3/uL 4.4-11.0 [facility] Blood erythrocytes count (nu mber/volume)Ordered By: Dr. Montana on 04-21-2022 RBC (Bld) [#/Vol] 4.51 10*6/uL 4.2-5.4 [facility] Blood hemoglobin measurement (mass/volume)Ordered By: Dr. Montana on 04-21-2022 Hemoglobin (Bld) [Mass/Vol] 14.1 g/dL 12.0-15.0 [facility] Blood platelet mean volumeOr dered By: Dr. Montana on 04-21-2022 Platelet mean volume (Bld) [Entitic vol] 11.2 fL 6.2-12.0 [facility] Determination of erythrocyte mean corpuscular volume (MCV)Ordered By: Dr. Montana on 04-21-2022 MCV (RBC) [Entitic vol] 89.6 fL 81-99 [facility] Hematocrit Auto (Bld) [Volum e fraction]Ordered By: Dr. Montana on 04-21-2022 Hematocrit (Bld) [Volume fraction] 40.4 % 37-47 [facility] Laboratory - Chemistry and C hemistry - challengeOrdered By: Dr. Montana on 04-21-2022 CO2 [Moles/Vol] 25.0 mmol/L 21.0-32.0 [facility] Urea nitrogen/Creatinine [Mass ratio] 21.7 mg/mg 10-20 [facility] Laboratory - Hematology and Cell countsOrdered By: Dr. Montana on 04-21-2022 Erythrocyte distribution width (RBC) [Entitic vol] 40.2 fL 35.1-43.9 [facility] Erythrocyte distribution width (RBC) [Ratio] 12.3 % 11.6-14.6 [facility] MCH (RBC) [Entitic mass] 31.3 pg 27.0-32.0 [facility] [Mass/Vol]Or dered By: Dr. Montana on 04-21-2022 MCHC (RBC) [Mass/Vol] 34.9 g/dL 32-36 [facility] No Panel InformationOrdered By: Dr. Montana on 04-21-2022 Estimated GFR (MDRD) Amer 112 mL/min >60 [facility] Comment on above: GFR Calc Estimated GFR (MDRD) Non-Af Amer 92 mL/min >60 [facility] Comment on above: Non- GFR Calc Thyroid Stimulating Hormone (TSH) 1.26 uIU/mL 0.358-3.74 [facility] Platelets bldOrdered By: Dr. Montana on 04-21-2022 Platelets (Bld) [#/Vol] 303 10*3/uL 150-450 [facility] Serum or plasma calcium promise urement (mass/volume)Ordered By: Dr. Montana on 04-21-2022 Calcium [Mass/Vol] 9.2 mg/dL 8.5-10.1 [facility] Serum or plasma cholesterol in HDL measurement (mass/volume)Ordered By: Dr. Montana on 04-21-2022 Cholesterol in HDL [Mass/Vol] 54 mg/dL >40 [facility] Comment on above: The drugs N-Acetylcy steine and Metamizole may falsely depress this assay. Reference Range HDL <40 mg/dL Low HDL Cholesterol HDL >or= 60 mg/dL High HDL Cholesterol Serum or plasma cholesterol in VLDL measurement (mass/volume)Ordered By: Dr. Montana on 04-21-2022 Cholesterol in VLDL [Mass/Vol] 18 mg/dL 5-40 [facility] Serum or plasma creatinine m easurement (mass/volume)Ordered By: Dr. Montana on 04-21-2022 Creatinine [Mass/Vol] 0.83 mg/dL 0.55-1.02 [facility] Comment on above: The validity of the calculated GFR & GFRAA in patients over 70 years has not been determined. Clinical correlation is essential. Serum or plasma low density lipoprotein (LDL) cholesterol measurement (mass/volume)Ordered By: Dr. Montana on 04-21-2022 Cholesterol in LDL [Mass/Vol] 75 mg/dL 0-130 [facility] Serum or plasma urea nitroge n measurement (mass/volume)Ordered By: Dr. Montana on 04-21-2022 Urea nitrogen [Mass/Vol] 18 mg/dL 7-18 [facility] Thin prep Papanicolaou smear with manual screeningOrdered By: Dr. Montana on 04-21-2022 Thin prep Papanicolaou smear with manual screening 7 5-15 [facility] Progress Noteon 11-04-2021 [employer] Interface Message Text Timothy Zamora is here for follow-up for: Recurrent ABD pain, +Sucrose Intolerance ---Last seen Mar 2020 ---no Show for Appt in June 2020 ---History from patient History of Present Illness This is not a consultation. She is unaccompanied. No world language teacher was used. ABD pain - Still with issues ---1-2 x per week ---No waking from sleep Stooling - 3x per day ---No diarrhea ---no blood normally, but on occasion = once per month, with harder stools ---Has constipation - on Miralax UO - No issues ---no hematuria N/V - No issues now with vomiting ---getting more nauseated over time Appetite - Depends - not hungry all the time ---diet going very well - monitoring sucrose Growth - BMI - 33.8; no weight loss noted Activity - Now in College ---doing well this summer; going back for 3rd year at [employer] ([place], [place]) Sucraid - 2ml, every time, up to 6x per day ---but only taking 4x per day Levsin - has run out ---was helping Spironolactone - has been off for >1 year NSAIDs - no recurrent use Currently - 5/10 (10 = well) ---when last seen, was 4-5/10 (10 = well) Past Medical History Past Medical History: Diagnosis Date Term of Past Surgical History Past Surgical History: Procedure Laterality Date NO PAST SURGICAL HISTORY Allergies No Known Allergies Medications Outpatient Encounter Medications as of 11/04/2021 Medication Sig Dispense Refill Levonorgestrel (LILETTA, 52 MG, IU) by Intrauterine route Sacrosidase (SUCRAID) 8500 UNIT/ML SOLN Take by mouth as needed when ingesting Sucrose; 2ml q4hrs PRN 118 mL 1 Acetaminophen (TYLENOL PO) Take by mouth ibuprofen (MOTRIN) 200 MG tablet Take 200 mg by mouth every 8 hours as needed hyoscyamine (LEVSIN) 0.125 MG TABS tablet Take 1 Tablet (0.125 mg) by mouth every 4 hours as needed for Cramping (Patient not taking: No sig reported) 20 Tablet 2 Norethin Cat-Eth Estrad-FE (LOESTRIN 24 FE PO) Take by mouth (Patient not taking: Reported on 11/04/2021) spironolactone (ALDACTONE) 100 MG Take 1 Tab (100 mg) by mouth daily for 180 days 90 Tab 1 dicyclomine (BENTYL) 10 MG capsule Take 2 Caps (20 mg) by mouth 3 times daily as needed (pain) (Patient not taking: No sig reported) 90 Cap 3 Tazarotene 0.1 % FOAM Apply to affected area (Patient not taking: No sig reported) naproxen (NAPROSYN) 250 MG tablet Take 250 mg by mouth every 8 hours (Patient not taking: No sig reported) No facility-administered encounter medications on file as of 11/04/2021. Family Medical History Family History Problem Relation Age of Onset No known problems Mother No known problems Father No known problems Sister Social History Social History Socioeconomic History Marital status: Single Spouse name: None Number of children: None Years of education: None Highest education level: None Tobacco Use Smoking status: Never Smokeless tobacco: Never Diet Current Diet? Sugar Free diet Patient drinks milk, eats cheese, ice cream? Yes Do dairy products cause problems? No Does patient have dietary restrictions? No Patient on nutritional supplements? No Patient on tube feeds? No Social History Who lives in the household? 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 No Has patient traveled out of the country? No Water source for child? [facility] Has the patient ever been hospitalized? No Alternative meds, herbals, OTC meds and vitamins documented in medication section? No Review of Systems Review of Systems Constitutional: Positive for weight gain. Negative for recurrent fevers and weight loss. HENT: Negative for trouble swallowing. Eyes: Positive for wears glasses. Respiratory: Negative for coughing, wheezing and asthma. Cardiovascular: Negative for heart murmur, heart problems and chest pain. Endocrine: Negative for poor growth. Gastrointestinal: Positive for abdominal pain and nausea. Negative for constipation, diarrhea, vomiting, heartburn, blood in stool and trouble swallowing. +Sucrose Intol Genitourinary: Negative for dysuria, hematuria and frequent urination. Neurological: Negative for developmental delays and seizures. Musculoskeletal: Negative for joint pain. Skin: Negative for rash. Allergy/Immune: Negative for allergies. Hematology: Negative for no easy bleeding and no anemia. The patient's past medical, surgical history, family history, and medications were reviewed and updated in EPIC (electronic medical record). Physical Examination Vitals: 11/04/21 1103 BP: 122/76 Pulse: 80 Temp: (!) 35.5 C (95.9 F) BP Readings from Last 2 Encounters: 11/04/21 122/76 11/26/19 129/72 Weight - Scale: (!) 98 kg Height: 170.2 cm Body mass index is 33.83 kg/m . Physical Exam Vitals reviewed. Constitutional: General: She is active. Appearance: She is well-developed, overweight and well-nourished. She is not (more content not included)... Normal [facility] Chlamydia trachomatis rRNA d etection by probe and target amplification methodon 10-29-2021 C. trachomatis rRNA ANI+probe Ql (Unsp spec) See comment [facility] Work Phone: Comment on above: TEST RESULT LIMITSCh lamydia/GC Amplification Chlamydia trachomatis, ANI Negative Negative Neisseria gonorrhoeae, ANI Negative Negative TESTING PERFORMED AT [facility]. ORIGINAL REPORT ON FILE IN LAB CONTAINS ADDITIONAL TEST SITE INFORMATION. Absolute lymphocyte counton 09-19-2021 Lymphocytes Auto (Unsp spec) [#/Vol] 1.31 10*3/uL 0.83-4.51 [facility] Work Phone: Basophil percentageon 2021 Basophil percentage 0-5 SEEN /hpf 0-5 [facility] Work Phone: Basophils/100 WBC (Bld) 0.3 % 0-1 [facility] Work Phone: Chloride [Moles/Vol] 104 mmol/L 98-107 [facility] Work [facility]: Eosinophils/100 WBC (Bld) 0.1 % 0-5 [facility] Work Phone: Glucose [Mass/Vol] 119 mg/dL 74-106 [facility] Work Phone: Comment on above: Fasting Glucose resu lt from 100 to 125 mg/dL suggests IMPAIRED HOMEOSTASIS per A.D.A. criteria. Lactate [Moles/Vol] 0.9 mmol/L 0.4-2.0 [facility] Work Phone: Neutrophils (Bld) [#/Vol] 5.3 10*3/uL 2.0-7.7 [facility] Work Phone: Neutrophils/100 WBC (Bld) 69.3 % 47-70 [facility] Work Phone: Potassium [Moles/Vol] 3.6 mmol/L 3.5-5.1 [facility] Work Phone: Sodium [Moles/Vol] 136 mmol/L 136-145 [facility] Work Phone: WBC (Bld) [#/Vol] 7.6 10*3/uL 4.4-11.0 [facility] Work Phone: Bilirubin Test strip Ql (U)o n 09-19-2021 Bilirubin Ql (U) Negative Negative [facility] Work Phone: Blood erythrocytes count (nu mber/volume)on 09-19-2021 RBC (Bld) [#/Vol] 4.45 10*6/uL 4.2-5.4 [facility] Work Phone: [phone] Blood hemoglobin measurement (mass/volume)on 09-19-2021 Hemoglobin (Bld) [Mass/Vol] 13.7 g/dL 12.0-15.0 [facility] Work Phone: Blood lymphocytes/100 leukoc yteson 09-19-2021 Lymphocytes/100 WBC (Bld) 17.2 % 19-41 [facility] Work Phone: [phone] Blood monocytes/100 leukocyt eson 09-19-2021 Monocytes/100 WBC (Bld) 12.8 % 0-10 [facility] Work Phone: Blood platelet mean volumeon 09-19-2021 Platelet mean volume (Bld) [Entitic vol] 10.3 fL 6.2-12.0 [facility] Work Phone: Culture, urineon 09-19-2021 Bacteria identified Cx Nom (U) Positive [facility] Work Phone: [phone] Determination of erythrocyte mean corpuscular volume (MCV)on 09-19-2021 MCV (RBC) [Entitic vol] 89.2 fL 81-99 [facility] Work Phone: Hematocrit Auto (Bld) [Volum e fraction]on 09-19-2021 Hematocrit (Bld) [Volume fraction] 39.7 % 37-47 [facility] Work Phone: Ketones Test strip Ql (U)on 09-19-2021 Ketones Ql (U) 5 mg/dl Negative [facility] Work Phone: Laboratory - Chemistry and C hemistry - challengeon 09-19-2021 CO2 [Moles/Vol] 24.0 mmol/L 21.0-32.0 [facility] Work Phone: Urea nitrogen/Creatinine [Mass ratio] 13.9 mg/mg 10-20 [facility] Work Phone: Laboratory - Hematology and Cell countson 09-19-2021 Erythrocyte distribution width (RBC) [Entitic vol] 38.4 fL 35.1-43.9 [facility] Work Phone: Erythrocyte distribution width (RBC) [Ratio] 11.9 % 11.6-14.6 [facility] Work Phone: Immature granulocytes/100 WBC (Bld) 0.300 % 0.0-0.9 [facility] Work Phone: Comment on above: IG% - Immature Granu locytes (promyelocytes, myelocytes and metamyelocytes) > 1% indicates that a LEFT SHIFT is Present. MCH (RBC) [Entitic mass] 30.8 pg 27.0-32.0 [facility] Work Phone: Nucleated RBC/100 WBC (Bld) [Ratio] 0 % 0-5 [facility] Work Phone: MCHC Auto (RBC) [Mass/Vol]on 09-19-2021 MCHC (RBC) [Mass/Vol] 34.5 g/dL 32-36 [facility] Work Phone: Mucus LM Ql (Urine sed)on Mucus Ql (Urine sed) 0 SEEN /hpf [facility] Work Phone: Nitrite Test strip Ql (U)on 09-19-2021 Nitrite Ql (U) Negative Negative [facility] Work Phone: No Panel Informationon 09-19 Estimated Creatinine Clearance Calc 97.68 ml/min [facility] Work Phone: Estimated GFR (MDRD) Amer 107 mL/min >60 [facility] Work Phone: Comment on above: GFR Calc Estimated GFR (MDRD) Non-Af Amer 89 mL/min >60 [facility] Work Phone: Comment on above: Non- GFR Calc Troponin I High Sensitivity 8 pg/mL 3.0-54.0 [facility] Work Phone: Comment on above: Please Note: New Mayra t Units and Gender Specific Reference Ranges. For more information see Policy Stat Procedure [place] High Sensitivity Troponin (TNIH) and attachments. Platelets bldon 09-19-2021 Platelets (Bld) [#/Vol] 233 10*3/uL 150-450 [facility] Work Phone: Protein Test strip Ql (U)on 09-19-2021 Protein Ql (U) 30 mg/dl Negative [facility] Work Phone: Serum or plasma calcium promise urement (mass/volume)on 09-19-2021 Calcium [Mass/Vol] 9.0 mg/dL 8.5-10.1 [facility] Work Phone: Serum or plasma creatinine m easurement (mass/volume)on 09-19-2021 Creatinine [Mass/Vol] 0.86 mg/dL 0.55-1.02 [facility] Work Phone: Comment on above: The validity of the calculated GFR & GFRAA in patients over 70 years has not been determined. Clinical correlation is essential. Serum or plasma urea nitroge n measurement (mass/volume)on 09-19-2021 Urea nitrogen [Mass/Vol] 12 mg/dL 7-18 [facility] Work Phone: Squamous epithelial cells de tection in urine sediment by light microscopyon 09-19-2021 Epithelial cells.squamous LM Ql (Urine sed) 0-5 SEEN /hpf 5-10 [facility] Work Phone: Thin prep Papanicolaou smear with manual screeningon 09-19-2021 Thin prep Papanicolaou smear with manual screening 8 5-15 [facility] Work Phone: Urine blood detectionon 08-23 RBC Ql (U) 250 /ul Negative [facility] Work Phone: RBC Ql (U) 5-10 SEEN /hpf 0-5 [facility] Work Phone: Urine clarityon 09-19-2021 Clarity (U) Clear Clear [facility] Work Phone: Urine color determinationon 09-19-2021 Color (U) Yellow Yellow [facility] Work Phone: Urine glucose detectionon Glucose Ql (U) Normal mg/dl Normal [facility] Work Phone: Urine leukocyte esterase det ection by dipstickon 09-19-2021 Leukocyte esterase Test strip Ql (U) 100 /ul Negative [facility] Work Phone: Urine pHon 09-19-2021 pH (U) 7.0 [pH] 5.0 - 8.0 [facility] Work Phone: Urine sediment bacteria coun t by microscopy (number/high power field)on 09-19-2021 Bacteria LM.HPF (Urine sed) [#/Area] 2 /[HPF] None Seen [facility] Work Phone: Urine specific gravity measu rementon 09-19-2021 Specific gravity (U) [Rel density] 1.015 1.002-1.03 0 [facility] Work Phone: Urobilinogen Auto test strip Ql (U)on 09-19-2021 Urobilinogen Ql (U) 1 mg/dl Normal [facility] Work Phone: Absolute lymphocyte counton 09-15-2021 Lymphocytes Auto (Unsp spec) [#/Vol] 0.99 10*3/uL 0.83-4.51 [facility] Work Phone: Basophil percentageon 2021 Basophils/100 WBC (Bld) 0.5 % 0-1 [facility] Work Phone: Eosinophils/100 WBC (Bld) 4.0 % 0-5 [facility] Work Phone: Neutrophils (Bld) [#/Vol] 3.7 10*3/uL 2.0-7.7 [facility] Work Phone: Neutrophils/100 WBC (Bld) 67.3 % 47-70 [facility] Work Phone: WBC (Bld) [#/Vol] 5.5 10*3/uL 4.4-11.0 [facility] Work Phone: Blood erythrocytes count (nu mber/volume)on 09-15-2021 RBC (Bld) [#/Vol] 4.47 10*6/uL 4.2-5.4 [facility] Work Phone: [phone] Blood hemoglobin measurement (mass/volume)on 09-15-2021 Hemoglobin (Bld) [Mass/Vol] 13.7 g/dL 12.0-15.0 [facility] Work Phone: Blood lymphocytes/100 leukoc yteson 09-15-2021 Lymphocytes/100 WBC (Bld) 18.0 % 19-41 [facility] Work Phone: Blood monocytes/100 leukocyt eson 09-15-2021 Monocytes/100 WBC (Bld) 9.8 % 0-10 [facility] Work Phone: Blood platelet mean volumeon 09-15-2021 Platelet mean volume (Bld) [Entitic vol] 10.8 fL 6.2-12.0 [facility] Work Phone: [phone] Determination of erythrocyte mean corpuscular volume (MCV)on 09-15-2021 MCV (RBC) [Entitic vol] 91.3 fL 81-99 [facility] Work Phone: Hematocrit Auto (Bld) [Volum e fraction]on 09-15-2021 Hematocrit (Bld) [Volume fraction] 40.8 % 37-47 [facility] Work Phone: Laboratory - Hematology and Cell countson 09-15-2021 Erythrocyte distribution width (RBC) [Entitic vol] 40.2 fL 35.1-43.9 [facility] Work Phone: Erythrocyte distribution width (RBC) [Ratio] 12.0 % 11.6-14.6 [facility] Work Phone: [phone] Immature granulocytes/100 WBC (Bld) 0.400 % 0.0-0.9 [facility] Work Phone: Comment on above: IG% - Immature Granu locytes (promyelocytes, myelocytes and metamyelocytes) > 1% indicates that a LEFT SHIFT is Present. MCH (RBC) [Entitic mass] 30.6 pg 27.0-32.0 [facility] Work Phone: Nucleated RBC/100 WBC (Bld) [Ratio] 0 % 0-5 [facility] Work Phone: MCHC Auto (RBC) [Mass/Vol]on 09-15-2021 MCHC (RBC) [Mass/Vol] 33.6 g/dL 32-36 [facility] Work Phone: Platelets bldon 09-15-2021 Platelets (Bld) [#/Vol] 248 10*3/uL 150-450 [facility] Work Phone: Culture, urine Bacteria identified Cx Nom (U) Positive [facility] Work Phone: Laboratory - Microbiology an d Antimicrobial susceptibility Bacteria identified Cx Nom (Bld) No growth in 5 days. [facility] Work Phone: Vital Signs Date Time Vital Sign Value Performing Clinician Facility 09-06-2024 07:54-0400 Body mass index (BMI) [Ratio] 40 kg/m2 Dr. Pj Montana MD Work Phone: [facility] 09-06-2024 07:54-0400 Body temperature 97.4 [degF] Dr. Pj Montana MD Work Phone: [facility] 09-06-2024 07:54-0400 Body weight 112.[address] Pj Montana MD Work Phone: [facility] 09-06-2024 07:54-0400 Diastolic blood pressure 80 mm[Hg] Dr. Pj Montana MD Work Phone: [facility] 09-06-2024 07:54-0400 Heart rate 86 /min Dr. Pj Montana MD Work Phone: [facility] 09-06-2024 07:54-0400 Respiratory rate 12 /min Dr. Pj Montana MD Work Phone: [facility] 09-06-2024 07:54-0400 SaO2% (BldA) [Mass fraction] 97 % Dr. Pj Montana MD Work Phone: 4(239)741-906957 [place] [address] 09-06-2024 07:54-0400 Systolic blood pressure 130 mm[Hg] Dr. Pj Montana MD Work Phone: 6(416)374-247400 [place] [address] 07-31-2024 06:22-0400 Body mass index (BMI) [Ratio] 39.9 kg/m2 Dr. Pj Montana MD Work Phone: 5(802)187-601100 [place] [address] 07-31-2024 06:22-0400 Body temperature 97.3 [degF] Dr. Pj Montana MD Work Phone: 3(464)502-922400 [place] [address] 07-31-2024 06:22-0400 Body weight 112.[address] Pj Montana MD Work Phone: 5(652)678-521200 [place] [address] 07-31-2024 06:22-0400 Diastolic blood pressure 84 mm[Hg] Dr. Pj Montana MD Work Phone: 1(885)877-819700 [place] [address] 07-31-2024 06:22-0400 Heart rate 83 /min Dr. Pj Montana MD Work Phone: 3(802)342-430600 [place] [address] 07-31-2024 06:22-0400 Respiratory rate 18 /min Dr. Pj Montana MD Work Phone: 1(381)532-573800 [place] [address] 07-31-2024 06:22-0400 SaO2% (BldA) [Mass fraction] 98 % Dr. Pj Montana MD Work Phone: 7(271)956-580700 [place] [address] 07-31-2024 06:22-0400 Systolic blood pressure 125 mm[Hg] Dr. Pj Montana MD Work Phone: 6(561)335-687500 [place] [address] 07-21-2024 10:15-0400 Body height 167.[address] Pj Montana MD Work Phone: 9(755)350-300000 [place] [address] 07-21-2024 10:15-0400 Body mass index (BMI) [Ratio] 40.5 kg/m2 Dr. Pj Montana MD Work Phone: 2(850)364-300900 [place] [address] 07-21-2024 10:15-0400 Body temperature 97.8 [degF] Dr. Pj Montana MD Work Phone: 7(135)753-082100 [place] [address] 07-21-2024 10:15-0400 Body weight 113.[address] Pj Montana MD Work Phone: 7(377)648-044700 [place] [address] 07-21-2024 10:15-0400 Diastolic blood pressure 82 mm[Hg] Dr. Pj Montana MD Work Phone: 0(917)283-460600 [place] [address] 07-21-2024 10:15-0400 Heart rate 82 /min Dr. Pj Montana MD Work Phone: 7(249)697-853700 [place] [address] 07-21-2024 10:15-0400 Systolic blood pressure 118 mm[Hg] Dr. Pj Montana MD Work Phone: 5(056)574-774900 [place] [address] 05-16-2024 01:32-0500 Body temperature 98.2 [degF] Dr. Pj Montana MD Work Phone: 0(488)824-706900 [place] [address] 05-16-2024 01:32-0500 Diastolic blood pressure 89 mm[Hg] Dr. Pj Montana MD Work Phone: 4(452)901-938100 [place] [address] 05-16-2024 01:32-0500 Heart rate 104 /min Dr. Pj Montana MD Work Phone: 0(986)198-250700 [place] [address] 05-16-2024 01:32-0500 Respiratory rate 18 /min Dr. Pj Montana MD Work Phone: 6(032)306-751200 [place] [address] 05-16-2024 01:32-0500 SaO2% (BldA) [Mass fraction] 98 % Dr. Pj Montana MD Work Phone: 3(458)970-104800 [place] [address] 05-16-2024 01:32-0500 Systolic blood pressure 134 mm[Hg] Dr. jP Montana MD Work Phone: 5(012)237-178400 [place] [address] 05-15-2024 23:54-0500 Body mass index (BMI) [Ratio] 40.1 kg/m2 Dr. Pj Montana MD Work Phone: [facility] 05-15-2024 23:54-0500 Body weight 112.[address] Pj Montana MD Work Phone: [facility] 04-29-2024 09:13-0500 Diastolic blood pressure 85 mm[Hg] Kermit Ko [employer]UD[employer] VISUAL [employer]ODUCTION SPECIALIST Work Phone: [facility] 04-29-2024 09:13-0500 Heart rate 88 /min Kermit Ko [employer]UD[employer] V[employer]UAL [employer]ODUCTION SPECIALIST Work Phone: [facility] 04-29-2024 09:13-0500 Systolic blood pressure 125 mm[Hg] Kermit Ko AUDIO VISUAL PRODUCTION SPECIALIST Work Phone: [facility] 10-23-2023 12:56-0400 Diastolic blood pressure 84 mm[Hg] Kermit Ko AUDIO VISUAL PRODUCTION SPECIALIST Work Phone: [facility] 10-23-2023 12:56-0400 Heart rate 99 /min Kermit Ko AUDIO V[employer]UAL [employer]ODUCTION SPECIALIST Work Phone: [facility] 10-23-2023 12:56-0400 Systolic blood pressure 127 mm[Hg] Kermit Ko AUDIO VISUAL PRODUCTION SPECIALIST Work Phone: [facility] 03-03-2023 10:05-0500 Diastolic blood pressure 86 mm[Hg] Kermit Ko AUDIO VISUAL PRODUCTION SPECIALIST Work Phone: [facility] 03-03-2023 10:05-0500 Heart rate 105 /min Kermit Ko AUDIO VISUAL PRODUCTION SPECIALIST Work Phone: [facility] 03-03-2023 10:05-0500 Systolic blood pressure 130 mm[Hg] Kermit Ko AUDIO VISUAL PRODUCTION SPECIALIST Work Phone: [facility] 03-03-2023 09:54-0500 Body weight 105.37 kg Kermit Ko AUDIO VISUAL PRODUCTION SPECIALIST Work Phone: [facility] 09-20-2022 07:12-0400 Body height 167.[address] Pj Montana Work Phone: [facility] 09-20-2022 07:12-0400 Body mass index (BMI) [Ratio] 38.7 kg/m2 Dr. Pj Montana Work Phone: [facility] 09-20-2022 07:12-0400 Body temperature 97.6 [degF] Dr. Pj Montana Work Phone: [facility] 09-20-2022 07:12-0400 Body weight 108.[address] Pj Montana Work Phone: [facility] 09-20-2022 07:12-0400 Diastolic blood pressure 83 mm[Hg] Dr. Pj Montana Work Phone: [facility] 09-20-2022 07:12-0400 Heart rate 101 /min Dr. Pj Montana Work Phone: [facility] 09-20-2022 07:12-0400 Respiratory rate 18 /min Dr. Pj Montana Work Phone: [facility] 09-20-2022 07:12-0400 SaO2% (BldA) [Mass fraction] 99 % Dr. Pj Montana Work Phone: [facility] 09-20-2022 07:12-0400 Systolic blood pressure 136 mm[Hg] Dr. Pj Montana Work Phone: [facility] 09-06-2022 12:02-0400 Diastolic blood pressure 76 mm[Hg] Dr. Pj Montana Work Phone: [facility] 09-06-2022 12:02-0400 Heart rate 74 /min Dr. Pj Montana Work Phone: [facility] 09-06-2022 12:02-0400 Respiratory rate 10 /min Dr. Pj Montana Work Phone: [facility] 09-06-2022 12:02-0400 SaO2% (BldA) [Mass fraction] 99 % Dr. Pj Montana Work Phone: [facility] 09-06-2022 12:02-0400 Systolic blood pressure 112 mm[Hg] Dr. Pj Montana Work Phone: [facility] 09-06-2022 08:19-0400 Body mass index (BMI) [Ratio] 38.4 kg/m2 Dr. Pj Montana Work Phone: [facility] 09-06-2022 08:19-0400 Body temperature 97.8 [degF] Dr. Pj Montana Work Phone: [facility] 09-06-2022 08:19-0400 Body weight 107.[address] Pj Montana Work Phone: [facility] 08-10-2022 08:01-0400 Body mass index (BMI) [Ratio] 38.5 kg/m2 Dr. Pj Montana Work Phone: 0(305)299-654157 [place] [address] 08-10-2022 08:01-0400 Body temperature 97.4 [degF] Dr. Pj Montana Work Phone: 0(461)724-039957 [place] [address] 08-10-2022 08:01-0400 Body weight 108.[address] Pj Montana Work Phone: [facility] 08-10-2022 08:01-0400 Diastolic blood pressure 87 mm[Hg] Dr. Pj Montana Work Phone: [facility] 08-10-2022 08:01-0400 Heart rate 96 /min Dr. Pj Montana Work Phone: [facility] 08-10-2022 08:01-0400 Respiratory rate 18 /min Dr. Pj Montana Work Phone: [facility] 08-10-2022 08:01-0400 SaO2% (BldA) [Mass fraction] 98 % Dr. Pj Montana Work Phone: [facility] 08-10-2022 08:01-0400 Systolic blood pressure 139 mm[Hg] Dr. Pj Montana Work Phone: [facility] 07-29-2022 16:23-0400 Body height 167.[address] Pj Montana Work Phone: [facility] 07-29-2022 16:23-0400 Body mass index (BMI) [Ratio] 35.5 kg/m2 Dr. Pj Montana Work Phone: [facility] 07-29-2022 16:23-0400 Body temperature 97.7 [degF] Dr. Pj Montana Work Phone: [facility] 07-29-2022 16:23-0400 Body weight 99.[address] Pj Montana Work Phone: [facility] 07-29-2022 16:23-0400 Diastolic blood pressure 84 mm[Hg] Dr. Pj Montana Work Phone: [facility] 07-29-2022 16:23-0400 Heart rate 75 /min Dr. Pj Montana Work Phone: [facility] 07-29-2022 16:23-0400 Respiratory rate 14 /min Dr. Pj Montana Work Phone: [facility] 07-29-2022 16:23-0400 SaO2% (BldA) [Mass fraction] 98 % Dr. Pj Montana Work Phone: [facility] 07-29-2022 16:23-0400 Systolic blood pressure 135 mm[Hg] Dr. Pj Montana Work Phone: [facility] 05-20-2022 08:52-0500 Body height 167.[address] Pj Montana Work Phone: [facility] 05-20-2022 08:52-0500 Body mass index (BMI) [Ratio] 37.4 kg/m2 Dr. Pj Montana Work Phone: [facility] 05-20-2022 08:52-0500 Body temperature 98.6 [degF] Dr. Pj Montana Work Phone: [facility] 05-20-2022 08:52-0500 Body weight 105.[address] Pj Montana Work Phone: [facility] 05-20-2022 08:52-0500 Diastolic blood pressure 82 mm[Hg] Dr. Pj Montana Work Phone: [facility] 05-20-2022 08:52-0500 Heart rate 109 /min Dr. Pj Montana Work Phone: [facility] 05-20-2022 08:52-0500 Respiratory rate 16 /min Dr. Pj Montana Work Phone: [facility] 05-20-2022 08:52-0500 SaO2% (BldA) [Mass fraction] 97 % Dr. Pj Montana Work Phone: [facility] 05-20-2022 08:52-0500 Systolic blood pressure 141 mm[Hg] Dr. Pj Montana Work Phone: [facility] 04-12-2022 07:14-0500 Body height 167.[address] Pj Montana Work Phone: [facility] Work Phone: 04-12-2022 07:14-0500 Body mass index (BMI) [Ratio] 36.8 kg/m2 Dr. Pj Montana Work Phone: [facility] 04-12-2022 07:14-0500 Body temperature 96 [degF] Dr. Pj Montana Work Phone: [facility] 04-12-2022 07:14-0500 Body weight 103.[address] Pj Montana Work Phone: [facility] 04-12-2022 07:14-0500 Diastolic blood pressure 81 mm[Hg] Dr. Pj Montana Work Phone: [facility] 04-12-2022 07:14-0500 Heart rate 82 /min Dr. Pj Montana Work Phone: [facility] 04-12-2022 07:14-0500 Respiratory rate 18 /min Dr. Pj Montana Work Phone: [facility] 04-12-2022 07:14-0500 SaO2% (BldA) [Mass fraction] 99 % Dr. Pj Montana Work Phone: [facility] 04-12-2022 07:14-0500 Systolic blood pressure 139 mm[Hg] Dr. Pj Montana Work Phone: [facility] 09-29-2021 14:08-0400 Body height 167.[address] Maksim Caro Work Phone: [facility] Work Phone: 09-29-2021 14:08-0400 Body mass index (BMI) [Ratio] 34 kg/m2 Dr. Maksim Caro Work Phone: [facility] Work Phone: 09-29-2021 14:08-0400 Body temperature 98.6 [degF] Dr. Maksim Caro Work Phone: [facility] Work Phone: 09-29-2021 14:08-0400 Body weight 95.[address] Maksim Caro Work Phone: [facility] Work Phone: 09-29-2021 14:08-0400 Diastolic blood pressure 95 mm[Hg] Dr. Maksim Caro Work Phone: [facility] Work Phone: 09-29-2021 14:08-0400 Heart rate 113 /min Dr. Maksim Caro Work Phone: [facility] Work Phone: 09-29-2021 14:08-0400 Respiratory rate 17 /min Dr. Maksim Caro Work Phone: [facility] Work Phone: 09-29-2021 14:08-0400 SaO2% (BldA) [Mass fraction] 98 % Dr. Maksim Caro Work Phone: [facility] Work Phone: 09-29-2021 14:08-0400 Systolic blood pressure 139 mm[Hg] Dr. Maksim Caro Work Phone: [facility] Work Phone: 09-19-2021 07:02-0400 Body temperature 98.1 [degF] Dr. Maksim Caro Work Phone: [facility] Work Phone: 09-19-2021 07:02-0400 Diastolic blood pressure 80 mm[Hg] Dr. Maksim Caro Work Phone: [facility] Work Phone: 09-19-2021 07:02-0400 Heart rate 98 /min Dr. Maksim Caro Work Phone: [facility] Work Phone: 09-19-2021 07:02-0400 Respiratory rate 18 /min Dr. Maksim Caro Work Phone: [facility] Work Phone: 09-19-2021 07:02-0400 SaO2% (BldA) [Mass fraction] 98 % Dr. Maksim Caro Work Phone: [facility] Work Phone: 09-19-2021 07:02-0400 Systolic blood pressure 113 mm[Hg] Dr. Maksim Caro Work Phone: [facility] Work Phone: 09-19-2021 03:26-0400 Body height 167.[address] Maksim Caro Work Phone: [facility] Work Phone: 09-19-2021 03:26-0400 Body mass index (BMI) [Ratio] 35.4 kg/m2 Dr. Maksim Caro Work Phone: [facility] Work Phone: 09-19-2021 03:26-0400 Body weight 99.[address] Maksim Caro Work Phone: [facility] Work Phone: Encounters Encounter Date Encounter Type Care Provider Facility Start: 09-06-2024 End: 09-06-2024 [facility]: Start: 09-06-2024 End: 09-06-[address] Pj Montana MD Work Phone: [facility] Work Phone: Start: 08-23-2024 End: 08-23-[address] Pj Montana MD Work Phone: [facility] Work Phone: Start: 08-23-2024 End: 08-23-2024 [facility] Start: 08-23-2024 End: 08-23-2024 ambulatory Pj Montana Facility:[facility] Start: 08-02-2024 End: 08-02-[address] Pj Montana MD Work Phone: [facility] Work Phone: Start: 08-02-2024 End: 08-02-2024 Patient encounter procedure JERARDO Avendaño -Pulmonary Services/Neurology Work Phone: Start: 08-02-2024 End: 08-02-2024 ambulatory [facility] Facility:[facility] Start: 07-31-2024 End: 07-31-2024 Patient encounter procedure Kermit Ko [employer]-C -Laboratory Work Phone: Start: 07-31-2024 End: 07-31-2024 [facility]: Start: 07-31-2024 End: 07-31-2024 [facility] Start: 07-31-2024 End: 07-31-2024 ambulatory Pj Montana Facility:[facility] Start: 07-21-2024 End: 07-21-2024 Patient encounter procedure Maksim Gann [facility] Work Phone: Start: 07-21-2024 End: 07-21-2024 ambulatory Maksim Gann [employer] Facility:[facility] Start: 06-28-2024 End: 06-28-2024 Patient encounter procedure Mendezpop Velasco DO -[facility] Work Phone: Start: 06-28-2024 End: 06-28-2024 ambulatory Pj Villanuevaelsen Facility:[facility] Start: 06-25-2024 ambulatory Pj Montana Facility:[facility] Start: 05-15-2024 End: 05-16-2024 Emergency department patient visit Devon Ferguson DO -Emergency Department Work Phone: Start: 04-29-2024 End: 04-29-2024 Office outpatient visit 25 minutes Kermit Ko AUD[employer]ODUCTION SPECIALIST Work Phone: [facility] [place] Comment on above: Hypothyroidism, unsp ecified type (Primary Dx); Hyperinsulinemia Start: 04-29-2024 End: 04-29-2024 ambulatory KERMIT SHERRY [facility] Ambulatory Start: 04-02-2024 End: 04-02-2024 ambulatory Pj Montana Facility:[facility] Start: 04-01-2024 End: 04-02-2024 ambulatory Jenny Bolton [employer] Facility:[facility] Start: 01-19-2024 End: 01-19-2024 ambulatory Mendez Krista Facility:[facility] Start: 01-16-2024 End: 01-16-2024 ambulatory Mendez Velasco Facility:[facility] Start: 12-28-2023 End: 12-28-2023 ambulatory Pj Montana Facility:[facility] Start: 10-30-2023 ambulatory Pj Montana Facility:[facility] Start: 10-27-2023 ambulatory KERMITGUILHERME POWELL KO [facility] Ambulatory Start: 10-23-2023 End: 10-23-2023 Office outpatient visit 25 minutes Kermit Ko AUDIO VISUAL PRODUCTION SPECIALIST Work Phone: [facility] [place] Comment on above: Hypothyroidism, unsp ecified type (Primary Dx); Hyperinsulinemia; Elevated cortisol level Start: 10-23-2023 End: 10-23-2023 ambulatory KERMIT POWELL KO [facility] Ambulatory Start: 10-23-2023 ambulatory KERMIT KO [facility] Ambulatory Start: 10-20-2023 End: 10-20-2023 ambulatory Erickson Lowe Facility:[facility] Start: 09-21-2023 End: 09-21-2023 ambulatory Pj Montana Facility:[facility] Start: 08-28-2023 ambulatory [facility] Start: 07-28-2023 ambulatory [facility] Start: 07-10-2023 Orders Only Kermit Ko AUDIO VISUAL PRODUCTION SPECIALIST Work Phone: [facility] End[facility] Physicians Start: 06-30-2023 ambulatory [facility] Start: 06-02-2023 ambulatory [facility] Start: 03-18-2023 End: 03-18-[address] Pj Montana Work Phone: [facility] Work Phone: Start: 03-18-2023 End: 03-18-[address] Pj Montana Work Phone: [facility]-Laboratory Work Phone: Start: 03-15-2023 End: 03-15-[address] Pj Montana Work Phone: [facility] Work Phone: Start: 03-15-2023 End: 03-15-[address] Pj Montana Work Phone: [facility]-Laboratory Work Phone: Start: 03-03-2023 End: 03-03-2023 Office outpatient new 45 minutes Kermit Ko AUDIO VISUAL PRODUCTION SPECIALIST Work Phone: [facility] [place] Comment on above: Elevated cortisol le marilu (Primary Dx); Hyperinsulinemia; Sucrase-isomaltase deficiency Start: 12-28-2022 Transcribe Orders Pelon OWENS [facility] Comment on above: Sucrase-isomaltase d eficiency (Primary Dx); Hyperinsulinemia; Elevated cortisol level Start: 11-23-2022 End: 11-23-[address] Pj Montana Work Phone: [facility] Work Phone: Start: 11-23-2022 End: 11-23-[address] Pj Montana Work Phone: [facility]-Laboratory Work Phone: Start: 11-22-2022 End: 11-22-[address] Pj Montana Work Phone: [facility] Work Phone: Start: 09-20-2022 End: 09-20-[address] Pj Montana Work Phone: [facility]-Pulmonary Medicine [facility] Start: 09-14-2022 Telephone encounter Zahira tapia MD Work Phone: Endocrinology Comment on above: Outside Lab Results ([facility]) Start: 09-13-2022 End: 09-13-[address] Pj Montana Work Phone: [facility]-Laboratory, Specimen Start: 09-12-2022 End: 09-13-2022 ambulatory [facility] Facility:[facility] Start: 09-12-2022 End: 09-12-[address] Pj Montana Work Phone: [facility] Work Phone: Start: 09-12-2022 End: 09-12-[address] Pj Montana Work Phone: [facility]-Laboratory Start: 09-06-2022 End: 09-06-[address] Pj Montana Work Phone: [facility]-Cat Scan, [facility] Start: 09-05-2022 End: 09-05-2022 ambulatory [facility] Facility:[facility] Start: 08-10-2022 Telephone encounter Zahira tapia MD Work Phone: Endocrinology Comment on above: [facility] Start: 08-10-2022 End: 08-10-[address] [facility] Start: 07-29-2022 End: 07-29-[address] Pj Montana Work Phone: [facility] Work Phone: Start: 07-29-2022 End: 07-29-[address] Pj [facility] Start: 07-16-2022 End: 07-16-[address] Pj Montana Work Phone: [facility] Work Phone: Start: 07-16-2022 End: 07-16-[address] Pj Montana Work Phone: [facility]-Laboratory, Specimen Start: 07-15-2022 End: 07-15-[address] Pj Montana Work Phone: [facility] Work Phone: Start: 07-15-2022 End: 07-15-[address] Pj Montana Work Phone: [facility] Gastro[facility] Start: 05-20-2022 End: 05-20-[address] Pj [place] [facility] Start: 05-17-2022 End: 05-17-[address] Pj Montana Work Phone: [facility] Work Phone: Start: 05-17-2022 End: 05-17-[address] Pj Montana [facility] Start: 05-11-2022 End: 05-11-[address] Pj Montana Work Phone: [facility] Work Phone: Start: 05-11-2022 End: 05-11-[address] Pj Montana Work Phone: [facility] Start: 04-21-2022 End: 04-21-[address] Pj Montana Work Phone: [facility] Work Phone: Start: 04-21-2022 End: 04-21-[address] Pj Montana Work Phone: [facility] Start: 04-12-2022 End: 04-12-[address] Pj [place] [facility] Start: 04-05-2022 End: 04-05-[address] Pj Montana Work Phone: [facility] Start: 10-29-2021 End: 10-29-[address] Maksim Caro Work Phone: [facility] Start: 10-23-2021 End: 10-23-[address] Maksim Caro Work Phone: [facility] Start: 09-29-2021 End: 09-29-[address] Maksim Car[facility] Start: 09-19-2021 End: 09-19-2021 Emergency department patient visit Dr. Maksim Caro Work Phone: [facility]-Emergency Department Start: 09-15-2021 End: 09-15-[address] [facility] [facility] [place] Start: 09-08-2021 End: 09-08-[address] Maksim Caro Work Phone: [facility] Start: 07-12-2021 End: 07-12-2021 Patient encounter procedure [facility] Procedures Date Procedure Procedure Detail Performing Clinician Start: 08-23-2024 CT of chest without contrast Dr. Pj Montana MD Work Phone: Start: 07-31-[address] Pj Montana MD Work Phone: Start: 07-31-[address] Pj Montana MD Work Phone: Start: 07-31-2024 House dust mite (Df) RAST Dr. Pj Montana MD Work Phone: Start: 07-31-2024 Mouse urine proteins RAST Dr. Pj Montana MD Work Phone: Comment on above: Performed at: [address] [id number] Director: Ping Wang MD, Phone: [phone] Start: 07-31-2024 Plantain (Ugandan) RAST Dr. Pj Montana MD Work Phone: Start: 05-16-2024 CT cervical spine wi thout contrast Dr. Pj Montana MD Work Phone: Start: 05-16-2024 CT of head without contrast Dr. Pj Montana MD Work Phone: Start: 05-16-2024 X-ray of thoracic sp ine, three views Dr. Pj Montana MD Work Phone: Start: 09-12-2022 ACTH BLOOD (EU,FV,HL,VIVIAN,MM,SP) [facility] Start: 09-12-2022 C-PEPTIDE BLOOD (EU,FV,HL,VIVIAN,MM,SP) [facility] Start: 09-12-2022 Comprehensive metabo lic 2000 panel - Serum or Plasma [facility] Start: 09-12-2022 CORTISOL BLOOD (EU,FV,HL,VIVIAN,MM,SP) [facility] Start: 09-12-2022 CREATININE 24 HR URI NE (EU,FV,HL,VIVIAN,MM,SP) [facility] Start: 09-12-2022 DHEA-SULFATE BLOOD (EU,FV,HL,VIVIAN,MM,SP) [facility] Start: 09-12-2022 Hemoglobin glycosylated a1c [facility] Start: 09-12-2022 INSULIN ASSAY BLOOD (EU,FV,HL,VIVIAN,MM,SP) [facility] Provider Start: 09-12-2022 Lipid panel [facility] Provid er Start: 09-12-2022 PROLACTIN BLOOD (EU,FV,HL,VIVIAN,MM,SP) [facility] Start: 09-12-2022 Thyrotropin [Units/v olume] in Serum or Plasma [facility] Start: 09-12-2022 Thyroxine (T4) free [Mass/volume] in Serum or Plasma [facility] Start: 09-06-2022 Plain chest X-ray Dr. Luis Alfredo Montana Work Phone: Start: 09-06-2022 Plain chest X-ray Dr. Luis Alfredo Montana Work Phone: Start: 09-06-2022 Biopsy/Inj or Needle Placement Dr. Pj Montana Work Phone: Start: 07-29-2022 Computed tomography of abdomen and pelvis with contrast Dr. Pj Montana Work Phone: Start: 05-17-2022 Computed tomography of abdomen and pelvis with contrast Dr. Pj Montana Work Phone: Start: 05-11-2022 Positron emission tomography with computed tomography Dr. Pj Montana Work Phone: Start: 04-05-2022 CT of chest without contrast Dr. Pj Montana Work Phone: Start: 10-23-2021 CT of chest without contrast Dr. Maksim Caro Work Phone: Start: 09-19-[address] Maksim Caro Work Phone: Start: 09-19-2021 CT angiography of ch est with contrast Dr. Maksim Caro Work Phone: Start: 09-19-2021 Plain chest X-ray Dr. Pilo Caro Work Phone: Start: 07-12-2021 CT of soft tissues o f neck with contrast Bacteria identified in Blood by Culture Dr. Maksim Caro Work Phone: Lactoferrin measurement Dr. Pj Montana Work Phone: Urine culture Dr. Maksim nunes Work Phone: Plan of Treatment Date Care Activity Detail Author Start: 10-28-2024 End: 10-28-2024 Patient encounter procedure 10/28/2024 9:00 AM EDT Office Visit [facility] [address] [place] [id number] Kermit Ko, AUDIO VISUAL PRODUCTION SPECIALIST [address] [place] [address] [facility] Start: 07-31-2024 Patient referral [facility] Work Phone: Start: 07-31-2024 [facility] Start: 05-16-2024 [facility] Start: 04-29-2024 End: 04-29-2024 Patient encounter procedure 04/29/2024 9:30 AM EST Office Visit [facility] [address] [place] [id number] Kermit Ko, AUDIO VISUAL PRODUCTION SPECIALIST [address] [place] [address] [facility] Start: 04-01-2024 End: 10-23-2024 C peptide [Mass/volume] in Serum or Plasma C-peptide Lab Routine Hypothyroidism, unspecified type Hyperinsulinemia Expected: 04/01/2024, Expires: 10/23/2024 [facility] Comment on above: Expected: 04/01/2024, Expires: Start: 04-01-2024 End: 10-23-2024 Comprehensive metabolic 2000 panel - Serum or Plasma Comprehensive Metabolic Panel Lab Routine Hypothyroidism, unspecified type Hyperinsulinemia Expected: 04/01/2024, Expires: 10/23/2024 [facility] Comment on above: Expected: 04/01/2024, Expires: Start: 04-01-2024 End: 10-23-2024 Cortisol [Mass/volume] in Serum or Plasma --AM peak specimen Cortisol, AM Lab Routine Hypothyroidism, unspecified type Hyperinsulinemia Elevated cortisol level Expected: 04/01/2024, Expires: 10/23/2024 [facility] Comment on above: Expected: 04/01/2024, Expires: Start: 04-01-2024 End: 10-23-2024 Insulin [Units/volume] in Serum or Plasma Insulin, Total Lab Routine Hypothyroidism, unspecified type Hyperinsulinemia Expected: 04/01/2024, Expires: 10/23/2024 [facility] Comment on above: Expected: 04/01/2024, Expires: Start: 04-01-2024 End: 10-23-2024 Plasma dehydroepiandrosterone sulfate level DHEA-Sulfate Lab Routine Hypothyroidism, unspecified type Hyperinsulinemia Elevated cortisol level Expected: 04/01/2024, Expires: 10/23/2024 [facility] Comment on above: Expected: 04/01/2024, Expires: Start: 04-01-2024 End: 10-23-2024 Prolactin [Mass/volume] in Serum or Plasma Prolactin Lab Routine Hypothyroidism, unspecified type Hyperinsulinemia Elevated cortisol level Expected: 04/01/2024, Expires: 10/23/2024 [facility] Comment on above: Expected: 04/01/2024, Expires: Start: 04-01-2024 End: 10-23-2024 Serum androstenedione measurement Androstenedione Lab Routine Hypothyroidism, unspecified type Hyperinsulinemia Expected: 04/01/2024, Expires: 10/23/2024 [facility] Comment on above: Expected: 04/01/2024, Expires: Start: 04-01-2024 End: 10-23-2024 Testosterone measurement, total Testosterone, Total Lab Routine Hypothyroidism, unspecified type Hyperinsulinemia Expected: 04/01/2024, Expires: 10/23/2024 [facility] Comment on above: Expected: 04/01/2024, Expires: Start: 04-01-2024 End: 10-23-2024 Thyrotropin [Units/volume] in Serum or Plasma TSH Lab Routine Hypothyroidism, unspecified type Hyperinsulinemia Expected: 04/01/2024, Expires: 10/23/2024 [facility] Work Phone: Comment on above: Expected: 04/01/2024, Expires: 5 Start: 04-01-2024 End: 10-23-2024 Thyroxine (T4) free [Mass/volume] in Serum or Plasma T4, Free Lab Routine Hypothyroidism, unspecified type Hyperinsulinemia Expected: 04/01/2024, Expires: 10/23/2024 [facility] Comment on above: Expected: 04/01/2024, Expires: 5 Start: 04-01-2024 End: 10-23-2024 Triiodothyronine (T3) [Mass/volume] in Serum or Plasma T3 Lab Routine Hypothyroidism, unspecified type Hyperinsulinemia Expected: 04/01/2024, Expires: 10/23/2024 [facility] Comment on above: Expected: 04/01/2024, Expires: 5 Start: 12-24-2023 COVID-19 Vaccine ( season) COVID-19 Vaccine ( season) [facility] Start: 12-24-2023 Influenza vaccination Influenza Vaccine (#1) [facility] Start: 10-23-2023 End: 10-23-2023 Patient encounter procedure 10/23/2023 1:00 PM EDT Office Visit [facility] [place] [address] [place] [phone] Kermit Ko, AUDIO VISUAL PRODUCTION SPECIALIST [address] [place] [address] [facility] [place] Start: 10-02-2023 End: 10-02-2023 Patient encounter procedure 10/02/2023 1:00 PM EDT Office Visit [facility] [place] [address] [place] [address] Kermit Ko, NADIA [address] [place] [address] [facility] Physicians [facility] [place] Start: 03-03-2023 End: 03-03-2023 Patient encounter procedure 03/03/2023 10:00 AM EST Office Visit [facility] Physicians [facility] [place] [address] [place] [phone] Kermit Ko, AUDIO VISUAL PRODUCTION SPECIALIST [address] [place] [address] [facility] [place] Start: 12-23-2022 COVID-19 Vaccine () COVID-19 Vaccine () [facility] Start: 12-23-2022 Influenza vaccination Sequential Influenza Vaccine (#1) [facility] Start: 10-12-2022 Tetanus vaccination Tetanus: Every 10yrs [facility] Start: 09-06-2022 CORE NDL BX LNG/MED PERQ CORE NDL BX LNG/MED PERQ [facility] Start: 09-06-2022 Catheterization of vein [facility] Start: 09-06-2022 Oxygen therapy [facility] Start: 09-06-2022 Patient discharge [facility] Start: 09-06-2022 Vital signs measurements [facility] Start: 09-06-2022 Following clinical pathway protocol [facility] Start: 07-29-2022 Notification of physician [facility] Start: 07-29-2022 [facility] Start: 07-16-2022 Elastase, pancreatic (el-1), fecal; quantitative [facility] Start: 2022 PAP TESTING PAP TESTING [facility] Start: 2022 Screening for malignant neoplasm of cervix Pap Smear [facility] Start: 04-24-2022 DEPRESSION ASSESSMENT DEPRESSION ASSESSMENT [facility] Start: 10-29-2021 Chlamydia deoxyribonucleic acid detection [facility] Work Phone: Start: 09-19-2021 Bacteria identified in Blood by Culture Blood Culture [facility] Work Phone: Start: 09-19-2021 Bacteria identified in Urine by Culture Urine Culture [facility] Work Phone: Start: 07-16-2021 Screening for Chlamydia trachomatis Chlamydia Screening [facility] Start: 02-02-2021 History and physical examination, annual for health maintenance Wellness Visit [facility] Start: 2020 Urine microalbumin profile DTAP,TDAP,TD (1 - Tdap) [facility] Start: 06-28-2019 CHLAMYDIA SCREENING (18-24) CHLAMYDIA SCREENING (18-24) [facility] Start: 06-28-2019 GC (GONORRHEA) SCREENING (18-24) GC (GONORRHEA) SCREENING (18-24) [facility] Start: 06-28-2019 HEPATITIS C SCREENING HEPATITIS C SCREENING [facility] Start: 06-28-2019 Hepatitis C screening Hepatitis C Screening [facility] Start: 06-28-2019 HIV SCREENING HIV SCREENING [facility] Start: 2016 HIV screening HIV Screening [facility] Start: 06-28-2015 PEDS TO ADULT TRANSITION ANNUAL ASSESSMENT PEDS TO ADULT TRANSITION ANNUAL ASSESSMENT [facility] Start: 2013 Depression screening using PHQ-9 (Patient Health Questionnaire 9) score [facility] Start: 2013 PEDS TO ADULT TRANSITION INITIAL DISCUSSION PEDS TO ADULT TRANSITION INITIAL DISCUSSION [facility] Start: 2012 HPV VACCINE (1 - 2-dose series) HPV VACCINE (1 - 2-dose series) [facility] Start: 2012 Vaccination for human papillomavirus HPV Vaccines (1 - 2-dose series) [facility] Start: 06-28-2011 MENINGOCOCCAL B: Consider based on risk (1 of 2 - Risk Bexsero 2-dose series) MENINGOCOCCAL B: Consider based on risk (1 of 2 - Risk Bexsero 2-dose series) [facility] Start: 2010 HPV VACCINE (1 - 2-dose series) HPV VACCINE (1 - 2-dose series) [facility] Start: 2004 History and physical examination, annual for health maintenance Wellness Visit [facility] Start: 2001 COVID-19 Vaccine (#1) COVID-19 Vaccine (#1) [facility] Start: 2001 HEPATITIS B (1 of 3 - 3-dose series) HEPATITIS B (1 of 3 - 3-dose series) [facility] Start: 2001 Screening for Chlamydia trachomatis Chlamydia Screening [facility] Start: 2001 Tetanus vaccination Tetanus: Every 10yrs [facility] 17 Hydroxyprogestero ne measurement 17-Hydroxyprogesterone Lab Routine Hyperinsulinemia Elevated cortisol level Ordered: 03/03/2023 [facility] Comment on above: Ordered: 03/03/2023 Adrenocorticotropic hormone measurement ACTH Lab Routine Hyperinsulinemia Elevated cortisol level Ordered: 03/03/2023 [facility] Comment on above: Ordered: 03/03/2023 Alternaria alternata RAST [facility] [place] house dust mite IgE Ab [Units/volume] in Serum [facility] Androstenedione [Mas s/volume] in Serum or Plasma [facility] [place] grass IgE Ab [Units/volume] in Serum [facility] End: 03-03-2024 C peptide [Mass/volume] in Serum or Plasma C-peptide Lab Routine Hyperinsulinemia Elevated cortisol level 1 Occurrences starting 03/03/2023 until 03/03/2024 [facility] Comment on above: 1 Occurrences starting 03/03/2023 until 03/03/2024 C peptide [Mass/volu me] in Serum or Plasma [facility] End: 04-30-2025 C peptide [Mass/volume] in Serum or Plasma C-peptide Lab Routine Hypothyroidism, unspecified type Hyperinsulinemia 1 Occurrences starting 04/29/2024 until 04/30/2025 [facility] Comment on above: 1 Occurrences starting 04/29/2024 until 04/30/2025 Cat dander IgE Ab [Units/volume] in Serum [facility] Common Ragweed IgE A b [Units/volume] in Serum [facility] End: 03-03-2024 Complete blood count with white cell differential, manual CBC and Differential Lab Routine Hyperinsulinemia Elevated cortisol level 1 Occurrences starting 03/03/2023 until 03/03/2024 [facility] Comment on above: 1 Occurrences starting 03/03/2023 until 03/03/2024 End: 04-30-2025 Complete blood count with white cell differential, manual CBC and Differential Lab Routine Hypothyroidism, unspecified type Hyperinsulinemia 1 Occurrences starting 04/29/2024 until 04/30/2025 [facility] Comment on above: 1 Occurrences starting 04/29/2024 until 04/30/2025 End: 03-03-2024 Comprehensive metabolic 2000 panel - Serum or Plasma Comprehensive Metabolic Panel Lab Routine Hyperinsulinemia Elevated cortisol level 1 Occurrences starting 03/03/2023 until 03/03/2024 [facility] Comment on above: 1 Occurrences starting 03/03/2023 until 03/03/2024 End: 04-30-2025 Comprehensive metabolic 2000 panel - Serum or Plasma Comprehensive Metabolic Panel Lab Routine Hypothyroidism, unspecified type Hyperinsulinemia 1 Occurrences starting 04/29/2024 until 04/30/2025 [facility] Comment on above: 1 Occurrences starting 04/29/2024 until 04/30/2025 Corticotropin [Mass/ volume] in Plasma [facility] End: 03-03-2024 Cortisol [Mass/volume] in Serum or Plasma --AM peak specimen [facility] Work Phone: Comment on above: 1 Occurrences starting 03/03/2023 until 03/03/2024 Cortisol [Mass/volum e] in Serum or Plasma --AM peak specimen Cortisol, AM Lab Routine Hypothyroidism, unspecified type Hyperinsulinemia Ordered: 04/29/2024 [facility] Comment on above: Ordered: 04/29/2024 CT [facility] Dehydroepiandrostero ne sulfate (DHEA-S) [Mass/volume] in Serum or Plasma [facility] Dog epithelium IgE A b [Units/volume] in Serum [facility] house dust mite IgE Ab [Units/volume] in Serum [facility] End: 04-30-2025 Hemoglobin A1c/Hemoglobin.total in Blood Hemoglobin A1c Lab Routine Hypothyroidism, unspecified type Hyperinsulinemia 1 Occurrences starting 04/29/2024 until 04/30/2025 [facility] Comment on above: 1 Occurrences starting 04/29/2024 until 04/30/2025 End: 03-03-2024 Insulin [Units/volume] in Serum or Plasma Insulin, Total Lab Routine Hyperinsulinemia Elevated cortisol level 1 Occurrences starting 03/03/2023 until 03/03/2024 [facility] Comment on above: 1 Occurrences starting 03/03/2023 until 03/03/2024 End: 04-30-2025 Insulin [Units/volume] in Serum or Plasma Insulin, Total Lab Routine Hypothyroidism, unspecified type Hyperinsulinemia 1 Occurrences starting 04/29/2024 until 04/30/2025 [facility] Comment on above: 1 Occurrences starting 04/29/2024 until 04/30/2025 [place] blue grass IgE Ab [Units/volume] in Serum [facility] End: 04-30-2025 Lipid 1996 panel - Serum or Plasma Lipid Panel Lab Routine Hypothyroidism, unspecified type Hyperinsulinemia 1 Occurrences starting 04/29/2024 until 04/30/2025 [facility] Comment on above: 1 Occurrences starting 04/29/2024 until 04/30/2025 Mouse urine proteins [facility] Neisseria gonorrhoea e rRNA [Presence] in Unspecified specimen by ANI with probe detection [facility] Work Phone: Patient Education [facility] Work Phone: Patient referral [facility] Work Phone: Plantain (Ugandan) [facility] End: 03-03-2024 Plasma dehydroepiandrosterone sulfate level DHEA-Sulfate Lab Routine Hyperinsulinemia Elevated cortisol level 1 Occurrences starting 03/03/2023 until 03/03/2024 [facility] Comment on above: 1 Occurrences starting 03/03/2023 until 03/03/2024 [facility] Work Phone: [facility] End: 03-03-2024 Serum androstenedione measurement Androstenedione Lab Routine Hyperinsulinemia Elevated cortisol level 1 Occurrences starting 03/03/2023 until 03/03/2024 [facility] Comment on above: 1 Occurrences starting 03/03/2023 until 03/03/2024 End: 03-03-2024 Testosterone measurement, total Testosterone, Total Lab Routine Hyperinsulinemia Elevated cortisol level 1 Occurrences starting 03/03/2023 until 03/03/2024 [facility] Comment on above: 1 Occurrences starting 03/03/2023 until 03/03/2024 End: 04-30-2025 Testosterone measurement, total Testosterone, Total Lab Routine Hypothyroidism, unspecified type Hyperinsulinemia 1 Occurrences starting 04/29/2024 until 04/30/2025 [facility] Comment on above: 1 Occurrences starting 04/29/2024 until 04/30/2025 End: 03-03-2024 Thyrotropin [Units/volume] in Serum or Plasma TSH Lab Routine Hyperinsulinemia Elevated cortisol level 1 Occurrences starting 03/03/2023 until 03/03/2024 [facility] Comment on above: 1 Occurrences starting 03/03/2023 until 03/03/2024 End: 04-30-2025 Thyrotropin [Units/volume] in Serum or Plasma TSH Lab Routine Hypothyroidism, unspecified type Hyperinsulinemia 1 Occurrences starting 04/29/2024 until 04/30/2025 [facility] Comment on above: 1 Occurrences starting 04/29/2024 until 04/30/2025 End: 03-03-2024 Thyroxine (T4) free [Mass/volume] in Serum or Plasma T4, Free Lab Routine Hyperinsulinemia Elevated cortisol level 1 Occurrences starting 03/03/2023 until 03/03/2024 [facility] Comment on above: 1 Occurrences starting 03/03/2023 until 03/03/2024 End: 04-30-2025 Thyroxine (T4) free [Mass/volume] in Serum or Plasma T4, Free Lab Routine Hypothyroidism, unspecified type Hyperinsulinemia 1 Occurrences starting 04/29/2024 until 04/30/2025 [facility] Work Phone: Comment on above: 1 Occurrences starting 04/29/2024 until 04/30/2025 White Elm IgE Ab [Units/volume] in Serum [facility] Tarzan IgE Ab [Units/volume] in Serum [facility] Immunizations Immunization Date Immunization Notes Care Provider [facility] 02-02-2022 influenza virus vacc ine, unspecified formulation Kermit Ko [facility] Work Phone: [facility] Payers Date Payer Category Payer Self-pay [id number] 2022 Managed Care (privat e) or private health insurance (indemnity), not otherwise specified [employer] [id number] 2022 Private Health Insurance [id number] 2022 Private Health Insurance [id number] 2019 Unknown [id number] 2001 Unknown [id number] 2.16.840.1.303882.3.579.2. 1287 2001 Unknown [id number] 2.16.840.1.681372.3.579.2. 1287 2001 Unknown [id number] 2.16840.1.826250.3.579.2. 1287 2001 Unknown [id number] 2.16.840.1.924268.3.579.2. 1287 2001 Unknown [id number] 2.16.840.1.792209.3.579.2. 903 2001 Unknown [id number] 2.16840.1.327423.3.579.2. 903 2001 Unknown [id number] 2.16.840.1.548460.3.579.2. 903 2001 Unknown [id number] 2.16.840.1.342926.3.579.2. 903 2001 Unknown [id number] 2.16.840.1.212647.3.579.2. 903 2001 Unknown [id number] 2.16.840.1.999557.3.579.2. 903 Unknown [id number] Unknown [id number] 2.16.840.1.804914.3.579.2. 462 Unknown [id number] 2.840.1.962046.3.579.2. 462 Unknown [id number] 2.840.1.688761.3.579.2. 462 Unknown [id number] 2.16840.1.130607.3.579.2. 462 Unknown [id number] 2.840.1.718027.3.579.2. 462 Unknown [id number] 2.840.1.262760.3.579.2. 462 Unknown [id number] 2.840.1.266693.3.579.2. 462 Unknown [id number] 2.840.1.150735.3.579.2. 462 Unknown [id number] 2.840.1.658708.3.579.2. 462 Unknown [id number] 2.840.1.258816.3.579.2. 462 Unknown [id number] 2.840.1.874330.3.579.2. 462 Unknown [id number] 2.840.1.430504.3.579.2. 462 Unknown [id number] 2.840.1.895404.3.579.2. 462 Unknown [id number] 2.840.1.383579.3.579.2. 462 Unknown [id number] .840.1.377099.3.579.2. 462 Unknown [id number] 2.840.1.522264.3.579.2. 462 Unknown [id number] 2.840.1.341825.3.579.2. 462 Unknown [id number] 2.840.1.435166.3.579.2. 462 Unknown [id number] 2.840.1.709248.3.579.2. 462 Social History Date Type Detail Facility Start: 11-03-2020 End: 11-22-2022 Tobacco smoking status MAIS Unknown if ever smoked [facility] Start: 2001 Sex Assigned At Female [facility] Start: 2001 Sex Assigned At Not on file [facility] Start: 09-05-2022 End: 05-15-2024 Tobacco smoking status NHIS Never smoked tobacco [facility] Start: 09-05-2022 End: 03-03-2023 Tobacco use and exposure Smokeless tobacco non-user [facility] Start: 09-05-2022 End: 04-29-2024 Alcohol intake Current drinker of alcohol (finding) [facility] Start: 03-03-2023 End: 04-29-2024 Gender identity Not on file [facility] Start: 03-03-2023 End: 04-29-2024 Alcohol intake [facility] Start: 03-03-2023 Alcohol Comment maybe every o ther week [facility] Start: 08-05-2024 End: 08-07-2024 Sex Female (finding) [facility] Mental Status Date Assessment Result Facility 09-06-2022 Cognitive function Voice/Name [facility] Work Phone: 07-29-2022 Cognitive function Voice/Name [facility] Work Phone: 09-19-2021 Cognitive function Level Of Cons ciousness Awake;Alert;Appropriate;Follow s Commands [facility] Work Phone: Clinical Notes 09-05-2022 to 08-25-2024 Note Date & Type Note Facility 08-25-2024 Radiology Diagnostic study note [facility] Imaging Services [address] [place], [place] [address] Chest without Contrast MR#: [id number] Acct: [id number] Name: TIMOTHY ZAMORA Rep #: [id number] : 2000 F 24 From: Laura Padron MD PCP: Dr. Pj Montana MD Status: REG C CASS Study:Chest without Contrast Date of Exam: 08/23/24 Exam# [id number] Ordering Dr: RuVivienne cisneros NP-C PROCEDURE: CHEST WITHOUT CONTRAST 08/23/2024 REASON FOR EXAM: DRY COUGH FOR 6 MONTHS, HISTORY OF SARCOID TECHNIQUE: Chest CT without contrast. Coronal and Sagittal reconstruction series were provided. One or more dose reduction techniques were used (e.g., Automated exposure control, adjustment of the mA and/or kV according to patient size, use of iterative reconstruction technique RADIATION DOSE SUMMARY: CTDlvol: 21 mGy DLP: 716 mGycm COMPARISON: CT chest 04/05/2022. FINDINGS: Hardware: None. Lymph nodes: Visualization is limited without the use of IV contrast. No axillary, mediastinal or hilar lymphadenopathy. Heart and Vasculature: The heart is normal in size without pericardial effusion. Soft tissue density within the anterior mediastinum, compatible with residual thymic tissue. The great vessels are normal in caliber. Lungs and Airways: The central airways are patent. Unchanged clustered nodularity within the left lower lobe abutting the pleural surface and major fissure. The dominant pulmonary nodule measures 1.7 cm (series 4, image 86), previously 1.6 cm when measured in a similar fashion. Additional unchanged scattered bilateral pulmonary nodules (for example within the right lower lobe series 4, image 72). No pleural effusion or pneumothorax. Upper Abdomen: Unremarkable. Bones: No aggressive osseous lesions. CT/Chest without Contrast IMPRESSION: Unchanged bilateral pulmonary nodules, with the dominant nodularity within the left lower lobe as described. Reading Location: [facility] CC: Dr. 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, 2024 12:51pm Cerumen impaction acute June 242024 9:57am Cough acute July 31 9:45am Sarcoidosis chronic July 31 9:45am [facility] Work Phone: [phone]) 385-577803-07-2025 Evaluation note* Diagnosis Onset Date Resolution Status Admit Date Mass of head of pancreas acute June 28, 2024 12:51pm Nausea acute June 28 12:51pm Abnormal gastrointestinal PE T scan chronic June 28, 2024 12:51pm IBS (irritable bowel syndrome) chron ic June 28, 2024 12:51pm Sucrose-isomaltose disacchar idase deficiency chronic June 28, 2024 12:51pm Cerumen impaction acute June 242024 9:57am Cough acute July 31 9:45am Sarcoidosis chronic July 31 9:45am Cough acute September 06, 2024 10:11am Sarcoidosis chronic September 06 10:11am [facility] Work Phone: [phone]) 374-506801-06-2025 NotePatient ID: Timothy Zamora is a 23 y.o. female Subjective: Timothy Zamora presents for evaluation of elevated cortisol and insulin levels. Patient referred by her larriman for further evaluation. 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 Patient reports evaluation with [facility] in Spring 2022. 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 In the last 12-18 months she began to notice weight gain, fatigue and dry skin. She has been evaluated and found to have mildly elevated AM cortisol with appropriately low 11 pm salivary cortisol and normal 24 hour urine collection for free cortisol. She reports gaining approximately 40 lbs. In a 6 month period, she has lost 15 lbs over the last few months since starting contrav. Previous evaluation with endocrinology at the [facility] with non evidence of cortisol excess. Current symptoms/problems include negative positive for - malaise/lethargy, skin changes, temperature intolerance, and unexpected weight changes negative for - breast changes, change in hair pattern, or galactorrhea Aforementioned symptoms have been stable. Symptoms have been present for a few months. Patient is currently taking: Outpatient Medications Marked as Taking for the 04/29/24 encounter (Office Visit) with Kermit Ko CNP: hyoscyamine (LEVSIN) 0.125 mg tablet, Take 1 (one) tablet (0.125 mg total) by mouth every 4 (four) hours as needed for cramping . levonorgestreL (LILETTA) 20.4 mcg/24 hrs (8 yrs) 52 mg IUD IUD, 1 (one) each by Intrauterine route once . levothyroxine (SYNTHROID, LEVOTHROID) 88 MCG tablet, Take 1 (one) tablet (88 mcg total) by mouth daily . linaCLOtide (Linzess) 145 mcg cap, Take 1 (one) capsule (145 mcg total) by mouth daily . predniSONE (DELTASONE) 20 MG tablet, Take 2 (two) tablets (40 mg total) by mouth daily . sacrosidase (Sucraid) 8,500 unit/mL Soln, Take by mouth . Review of Systems: Review of Systems Constitutional: Positive for fatigue (with sarcoidosis flare.) and unexpected weight change (40 lbs over last year.). HENT: Negative for trouble swallowing. Eyes: Negative for visual disturbance. Respiratory: Positive for cough (with sarcoidosis flare up 05/18). Negative for shortness of breath. Cardiovascular: Negative for chest pain and palpitations. Gastrointestinal: Positive for nausea (in mornings). Negative for abdominal pain. Endocrine: Positive for heat intolerance and polydipsia. Negative for cold intolerance, polyphagia and polyuria. Genitourinary: Positive for menstrual problem (secondary to IUD. Started Menses at 12 years old, regular prior to IUD). -breast discharge Musculoskeletal: Negative for arthralgias and back pain. Skin: + Hair loss + Hirsutism, new hair growth to chest. + Striae Allergic/Immunologic: Positive for immunocompromised state (prone to infection.). Neurological: Positive for headaches (more frequently, once weekly). Negative for weakness. Hematological: Bruises/bleeds easily. Psychiatric/Behavioral: Positive for sleep disturbance (trouble falling asleep on prednisone). The patient is nervous/anxious. The following portions of the patient's history were reviewed and updated as appropriate: allergies, current medications, past family history, past medical history, past social history, past surgical history and problem list. Objective: Physical Exam: BP 125/85 Pulse 88 Wt Readings from Last 3 Encounters: 03/03/23 105.4 kg (232 lb 4.8 oz) Physical Exam Constitutional: Appearance: She is well-developed. HENT: Head: Normocephalic and atraumatic. Eyes: Conjunctiva/sclera: Conjunctivae normal. Pupils: Pupils are equal, round, and reactive to light. Neck: Thyroid: No thyromegaly. Cardiovascular: Rate and Rhythm: Normal rate and regular rhythm. Heart sounds: Normal heart sounds. Pulmonary: Effort: Pulmonary effort is normal. Breath sounds: Normal breath sounds. Musculoskeletal: General: Normal range of motion. Cervical back: Normal range of motion and neck supple. Skin: General: Skin is warm and dry. Comments: Positive striae, pink colored. Neurological: Mental Status: She is alert and oriented to person, place, and time. Psychiatric: Behavior: Behavior normal. Thought Content: Thought content normal. Judgment: Judgment normal. Lab Review Date: 10/20/23 *labs reviewed 04/29/24 Glucose: 101 Creat: 0.90; eGFR: 83 AST: 21; ALT: 56 K: 3.7 TSH: 2.29 ; FreeT4: 0.95; TT3: 1.14 Cortisol: 16.90 Prolactin: 35 03/15/23 Glucose: 89 Creat: 0.95; eGFR: 78 AST: 16; ALT: 34 K: 3.4 TSH: 5.36 ; FreeT4: 0.97 Insulin: 22.9 C-peptide: 3.4 Testosterone: 36.98 Androstenedione: 185 DHEA-S: 581.0 (110-431.7) 96-CB-mkvacdnfxriy: 47 Cortisol: 20.90 ACTH: 21.6 09/12/22 DHEA-S: 452 ACTH: 36.6 24 hr urine Cortisol: 26 (6-42) Serum Corti (more content not included)...[facility]01-06-2025 History of Present illness Narrative* Kermit Ko, NADIA - 04/29/2024 9:42 AM EST Images from the original note were not included. Patient ID: Timothy Zamora is a 23 y.o. female Subjective: Timothy Zamora presents for evaluation of elevated cortisol and insulin levels. Patient referred by her larriman for further evaluation. 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 Patient reports evaluation with [facility] in Spring 2022. 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 In the last 12- 18 monthsshe began to notice weight gain, fatigue and dry skin. She has been evaluated and found to have mildly elevated AM cortisol with appropriately low 11 pm salivary cortisol and normal 24 hour urine collection for free cortisol. She reports gaining approximately 40 lbs. In a 6 month period, she has lost 15 lbs over the last few months since starting contrav. Previous evaluation with endocrinology at the [facility] with non evidence of cortisol excess. Current symptoms/problems include negative positive for - malaise/lethargy, skin changes, temperature intolerance, and unexpected weight changes negative for - breast changes, change in hair pattern, or galactorrhea Aforementioned symptoms have been stable. Symptoms have been present for a few months. Patient is currently taking: Outpatient Medications Marked as Taking for the 04/29/24 encounter (Office Visit) with Kermit Ko CNP: hyoscyamine (LEVSIN) 0.125 mg tablet, Take 1 (one) tablet (0.125 mg total) by mouth every 4 (four) hours as needed for cramping . levonorgestreL (LILETTA) 20.4 mcg/24 hrs (8 yrs) 52 mg IUD IUD, 1 (one) each by Intrauterine route once . levothyroxine (SYNTHROID, LEVOTHROID) 88 MCG tablet, Take 1 (one) tablet (88 mcg total) by mouth daily . linaCLOtide (Linzess) 145 mcg cap, Take 1 (one) capsule (145 mcg total) by mouth daily . predniSONE (DELTASONE) 20 MG tablet, Take 2 (two) tablets (40 mg total) by mouth daily . sacrosidase (Sucraid) 8,500 unit/mL Soln, Take by mouth . Review of Systems: Review of Systems Constitutional: Positive for fatigue (with sarcoidosis flare.) and unexpected weight change (40 lbsover last year.). HENT: Negative for trouble swallowing. Eyes: Negative for visual disturbance. Respiratory: Positive for cough (with sarcoidosis flare up 05/18). Negative for shortness of breath. Cardiovascular: Negative for chest pain and palpitations. Gastrointestinal: Positive for nausea (in mornings). Negative for abdominal pain. Endocrine: Positive for heat intolerance and polydipsia. Negative for cold intolerance, polyphagia and polyuria. Genitourinary: Positive for menstrual problem (secondary to IUD. Started Menses at 12 years old, regular prior to IUD). -breast discharge Musculoskeletal: Negative for arthralgias and back pain. Skin: + Hair loss + Hirsutism, new hair growth to chest. + Striae Allergic/Immunologic: Positive for immunocompromised state (prone to infection.). Neurological: Positive for headaches (more frequently, once weekly). Negative for weakness. Hematological: Bruises/bleeds easily. Psychiatric/Behavioral: Positive for sleep disturbance (trouble falling asleep on prednisone). The patient is nervous/anxious. The following portions of the patient's history were reviewed and updated as appropriate: allergies, current medications, past family history, past medical history, past social history, past surgicalhistory and problem list. Objective: Physical Exam: BP 125/85 Pulse 88 Wt Readings from Last 3 Encounters: 03/03/23 105.4 kg (232 lb 4.8 oz) Physical Exam Constitutional: Appearance: She is well-developed. HENT: Head: Normocephalic and atraumatic. Eyes: Conjunctiva/sclera: Conjunctivae normal. Pupils: Pupils are equal, round, and reactive to light. Neck: Thyroid: No thyromegaly. Cardiovascular: Rate and Rhythm: Normal rate and regular rhythm. Heart sounds: Normal heart sounds. Pulmonary: Effort: Pulmonary effort is normal. Breath sounds: Normal breath sounds. Musculoskeletal: General: Normal range of motion. Cervical back: Normal range of motion and neck supple. Skin: General: Skin is warm and dry. Comments: Positive striae, pink colored. Neurological: Mental Status: She is alert and oriented to person, place, and time. Psychiatric: Behavior: Behavior normal. Thought Content: Thought content normal. Judgment: Judgment normal. Lab Review Date: 10/20/23 *labs reviewed 04/29/24 Glucose: 101 Creat: 0.90; eGFR: 83 AST: 21; ALT: 56 K: 3.7 TSH: 2.29 ; FreeT4: 0.95; TT3: 1.14 Cortisol: 16.90 Prolactin: 35 03/15/23 Glucose: 89 Creat: 0.95; eGFR: 78 AST: 16; ALT: 34 K: 3.4 TSH: 5.36 ; FreeT4: 0.97 Insulin: 22.9 C-peptide: 3.4 Testosterone: 36.98 Androstenedione: 185 DHEA-S: 581.0 (110-431.7) 39-SJ-xbgcyxkmcici: 47 Cortisol: 20.90 ACTH: 21.6 09/12/22 DHEA-S: 452 ACTH: 36.6 24 hr urine Cortisol: 26 (6-42) Serum Cortisol: 23.5 Insulin: 26.5 TSH: 2.28; Free T4: 0.84 Prolactin: 32.3 C-peptide: 4.4 Hgb A1c: 5.0% Tchol: 153; Tri ; HDL: 49 ; LDL: 68 Creat: 0.83; eGFR: 92 ALT: 60; AST: 28 09/09/22 11pm Saliva Cortisol: 0.042 09/08/22 11pm Saliva Cortisol: 0.050 06/07/21 CBC: WBC: 6.2; Hgb: 13.6 Hct: 39.3 Plt: 240 06/04/21 TSH: 1.13 02/03/20 Prolactin: 18.45 TSH: 2.71 Assessment: Dx: 1. Hypothyroidism, unspecified type T4, Free TSH Comprehensive Metabolic Panel Hemoglobin A1c Comprehensive Metabolic Panel Hemoglobin A1c TSH T4, Free CBC and Differential Testosterone, Total Lipid Panel Insulin, Total C-peptide Cortisol, AM 2. Hyperinsulinemia T4, Free TSH Comprehensive Metabolic Panel Hemoglobin A1c Comprehensive Metabolic Panel Hemoglobin A1c TSH T4, Free CBC and Differential Testosterone, Total Lipid Panel Insulin, Total C-peptide Cortisol, AM Timothy Zamora presents for fevaluation of elevated cortisol and insulin levels. Patient referred by her larriman for further evaluation. Patient reports evaluation with [facility] in Spring 2022. 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 In the last 12- 18 months she began to notice weight gain, fatigue and dry skin. She has been evaluated and found to have mildly elevated AM cortisol with appropriately low 11 pm salivary cortisol and normal 24 hour urine collection for free cortisol. She reports gaining approximately 40 lbs. In a 6 month period, she has lost 15 lbs over the last few months since starting contrav. Patient found to have cindi vated random cortisol along with elevated DHEA-S. Follow up labs reviewed as above. Patient's cortisol normal. Patient's TSH elevated, and started onlevothyroxine 50 mcg daily, recently increased to 88 mcg daily. Patient reports no major change in symptoms. She is working 2nd shift and reports increased energy at work and into the early hours of the morning but more fatigue throughout the day. She is currently on prednisone 40 mg daily for sarcoidosis flare. Follows with Dr. Briseno [facility]. Plan: 1. Rx changes: none levothyroxine to 88 mcg daily. Check labs: Orders Placed This Encounter Procedures T4, Free TSH Comprehensive Metabolic Panel Hemoglobin A1c Comprehensive Metabolic Panel Hemoglobin A1c TSH T4, Free CBC and Differential Testosterone, Total Lipid Panel Insulin, Total C-peptide Cortisol, AM Discussed intervention with vaniqa cream and/or spironolactone for hirsuitism, however patient is comfortable treating with shaving/plucking as needed. She did mention that previously it was suggested to her to have her IUD removed, which may be an option to see if there is a contributing factor with her current hormonal status. 2. Education: Discussed with patient and her father possible diagnoses along with other potential causes of aforementioned symptoms. 3. Follow up: 6 months Electronically Signed by: Kermit Ko CNP 04/29/24 12:02 PM documented in this [id number] NotePatient ID: Timothy Zamora is a 23 y.o. female Subjective: Timothy Zamora presents for evaluation of elevated cortisol and insulin levels. Patient referred by her larriman for further evaluation. 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 Patient reports evaluation with [facility] in Spring 2022. 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 In the last 12-18 months she began to notice weight gain, fatigue and dry skin. She has been evaluated and found to have mildly elevated AM cortisol with appropriately low 11 pm salivary cortisol and normal 24 hour urine collection for free cortisol. She reports gaining approximately 40 lbs. In a 6 month period, she has lost 15 lbs over the last few months since starting contrav. Previous evaluation with endocrinology at the [facility] with non evidence of cortisol excess. Current symptoms/problems include negative positive for - malaise/lethargy, skin changes, temperature intolerance, and unexpected weight changes negative for - breast changes, change in hair pattern, or galactorrhea Aforementioned symptoms have been stable. Symptoms have been present for a few months. Patient is currently taking: Outpatient Medications Marked as Taking for the 10/23/23 encounter (Office Visit) with Kermit Ko CNP: hyoscyamine (LEVSIN) 0.125 mg tablet, Take 1 (one) tablet (0.125 mg total) by mouth every 4 (four) hours as needed for cramping . levonorgestreL (LILETTA) 20.4 mcg/24 hrs (8 yrs) 52 mg IUD IUD, 1 (one) each by Intrauterine route once . levothyroxine (SYNTHROID, LEVOTHROID) 50 MCG tablet, Take 1 (one) tablet (50 mcg total) by mouth daily . linaCLOtide (Linzess) 145 mcg cap, Take 1 (one) capsule (145 mcg total) by mouth daily . sacrosidase (Sucraid) 8,500 unit/mL Soln, Take by mouth . Review of Systems: Review of Systems Constitutional: Positive for fatigue (during the day, wide awake at night.) and unexpected weight change (40 lbs over last year.). HENT: Positive for trouble swallowing. Eyes: Negative for visual disturbance. Respiratory: Negative for shortness of breath. Cardiovascular: Negative for chest pain and palpitations. Gastrointestinal: Positive for nausea (in mornings). Endocrine: Positive for heat intolerance and polydipsia. Negative for cold intolerance, polyphagia and polyuria. Genitourinary: Positive for menstrual problem (secondary to IUD. Started Menses at 12 years old, regular prior to IUD). -breast discharge Musculoskeletal: Negative for arthralgias and back pain. Skin: + Hair loss + Hirsutism, new hair growth to chest. + Striae Allergic/Immunologic: Positive for immunocompromised state (prone to infection.). Neurological: Positive for headaches (more frequently, once weekly). Negative for weakness. Hematological: Bruises/bleeds easily. Psychiatric/Behavioral: Positive for sleep disturbance (trouble falling asleep). The patient is nervous/anxious. The following portions of the patient's history were reviewed and updated as appropriate: allergies, current medications, past family history, past medical history, past social history, past surgical history and problem list. Objective: Physical Exam: BP 127/84 Pulse 99 Wt Readings from Last 3 Encounters: 03/03/23 105.4 kg (232 lb 4.8 oz) Physical Exam Constitutional: Appearance: She is well-developed. HENT: Head: Normocephalic and atraumatic. Eyes: Conjunctiva/sclera: Conjunctivae normal. Pupils: Pupils are equal, round, and reactive to light. Neck: Thyroid: No thyromegaly. Cardiovascular: Rate and Rhythm: Normal rate and regular rhythm. Heart sounds: Normal heart sounds. Pulmonary: Effort: Pulmonary effort is normal. Breath sounds: Normal breath sounds. Musculoskeletal: General: Normal range of motion. Cervical back: Normal range of motion and neck supple. Skin: General: Skin is warm and dry. Comments: Positive striae, pink colored. Neurological: Mental Status: She is alert and oriented to person, place, and time. Psychiatric: Behavior: Behavior normal. Thought Content: Thought content normal. Judgment: Judgment normal. Lab Review Date: 10/20/23 *labs reviewed 10/23/23 Glucose: 101 Creat: 0.90; eGFR: 83 AST: 21; ALT: 56 K: 3.7 TSH: 2.29 ; FreeT4: 0.95; TT3: 1.14 Cortisol: 16.90 Prolactin: 35 03/15/23 Glucose: 89 Creat: 0.95; eGFR: 78 AST: 16; ALT: 34 K: 3.4 TSH: 5.36 ; FreeT4: 0.97 Insulin: 22.9 C-peptide: 3.4 Testosterone: 36.98 Androstenedione: 185 DHEA-S: 581.0 (110-431.7) 65-GI-dahhselenjtp: 47 Cortisol: 20.90 ACTH: 21.6 09/12/22 DHEA-S: 452 ACTH: 36.6 24 hr urine Cortisol: 26 (6-42) Serum Cortisol: 23.5 Insulin: 26.5 TSH: 2.28; Free T4: 0.84 Prolactin: 32.3 C-peptide: 4.4 Hgb A1c: 5.0% Tchol: 153; Tri ; HDL: 49 ; LDL: 68 Creat: 0.83; eGFR: 92 ALT: 6 (more content not included)...[facility]07-01-2024 History of Present illness Narrative* Kermit Ko, NADIA - 10/23/2023 1:02 PM EDT Images from the original note were not included. Patient ID: Timothy Zamora is a 23 y.o. female Subjective: Timothy Zamora presents for evaluation of elevated cortisol and insulin levels. Patient referred by her larriman for further evaluation. 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 Patient reports evaluation with [facility] in Spring 2022. 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 In the last 12- 18 monthsshe began to notice weight gain, fatigue and dry skin. She has been evaluated and found to have mildly elevated AM cortisol with appropriately low 11 pm salivary cortisol and normal 24 hour urine collection for free cortisol. She reports gaining approximately 40 lbs. In a 6 month period, she has lost 15 lbs over the last few months since starting contrav. Previous evaluation with endocrinology at the [facility] with non evidence of cortisol excess. Current symptoms/problems include negative positive for - malaise/lethargy, skin changes, temperature intolerance, and unexpected weight changes negative for - breast changes, change in hair pattern, or galactorrhea Aforementioned symptoms have been stable. Symptoms have been present for a few months. Patient is currently taking: Outpatient Medications Marked as Taking for the 10/23/23 encounter (Office Visit) with Kermit Ko, NADIA: hyoscyamine (LEVSIN) 0.125 mg tablet, Take 1 (one) tablet (0.125 mg total) by mouth every 4 (four) hours as needed for cramping . levonorgestreL (LILETTA) 20.4 mcg/24 hrs (8 yrs) 52 mg IUD IUD, 1 (one) each by Intrauterine route once . levothyroxine (SYNTHROID, LEVOTHROID) 50 MCG tablet, Take 1 (one) tablet (50 mcg total) by mouth daily . linaCLOtide (Linzess) 145 mcg cap, Take 1 (one) capsule (145 mcg total) by mouth daily . sacrosidase (Sucraid) 8,500 unit/mL Soln, Take by mouth . Review of Systems: Review of Systems Constitutional: Positive for fatigue (during the day, wide awake at night.) and unexpected weight change (40 lbs over last year.). HENT: Positive for trouble swallowing. Eyes: Negative for visual disturbance. Respiratory: Negative for shortness of breath. Cardiovascular: Negative for chest pain and palpitations. Gastrointestinal: Positive for nausea (in mornings). Endocrine: Positive for heat intolerance and polydipsia. Negative for cold intolerance, polyphagia and polyuria. Genitourinary: Positive for menstrual problem (secondary to IUD. Started Menses at 12 years old, regular prior to IUD). -breast discharge Musculoskeletal: Negative for arthralgias and back pain. Skin: + Hair loss + Hirsutism, new hair growth to chest. + Striae Allergic/Immunologic: Positive for immunocompromised state (prone to infection.). Neurological: Positive for headaches (more frequently, once weekly). Negative for weakness. Hematological: Bruises/bleeds easily. Psychiatric/Behavioral: Positive for sleep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 DO Attending Provider, Referring Pro vider Active Team Status: Active Member Role Status Dates Dr. Pj Montana MD Primary Care Provider, Attending Provider Active Team Status: Inactive Member Role Status Dates Dr. Pj Montana MD Primary Care Provider, Attending Provider Active Team Status: Inactive Member Role Status Dates Dr. Pj Montana MD Primary Care Provider, Referring Provider Active Dr. Mendez Velasco DO Attending Provider Active Team Status: Active Member Role Status Dates Dr. Pj Montana MD Primary Care Provider Active Dr. Mendez Velasco DO Attending Provider, Referring Provider Active Team Status: Inactive Member Role Status Dates Dr. Pj Montana MD Primary Care Provider Active Dr. Mendez Velasco DO Attending Provider Active Team Status: Inactive Member Role Status Dates Dr. Pj Montana MD Primary Care Provider Active Dr. Mendez Velasco DO Attending Provider, Referring Provider Active Team Status: Inactive Member Role Status Dates Dr. Pj Montana MD Primary Care Provider Active FLY DEWITT Attending Provider, Referring Provider A ctive Forwarder Operator Relationship Specialty Start Date End Date Pj Montana MD [address] [place] [address] PCP - General Family Medicine 01/31/23 Team Status: Active Member Role Status Dates Dr. Pj Montana MD Primary Care Provider Active JOHNY CARMEN Attending Provider, Referring Provider Active Team Status: Inactive Member Role Status Dates Dr. Pj Montana MD Primary Care Provider Active JOHNY CARMEN Attending Provider Active Team Status: Inactive Member Role Status Dates Dr. Pj Montana MD Primary Care Provider Active JOHNY CARMEN Attending Provider, Referring Provider Active Forwarder Operator Relationship Specialty Start Date End Date Pj Montana MD [address] [place] [address] PCP - General Family Medicine 01/31/23 Forwarder Operator Relationship Specialty Start Date End Date Pj Montana MD [address] [place] [address] PCP - General Family Medicine 01/31/23 Forwarder Operator Relationship Specialty Start Date End Date Pj Montana MD [address] [place] [address] PCP - General Family Medicine 01/31/23 Team Status: Active Member Role Status Dates Dr. Pj Montana MD Primary Care Provider Active Team Status: Inactive Member Role Status Dates Dr. Pj Montana MD Primary Care Provider Active Start: May 15, 2024 End: May 16, 2024 Dr. Devon Ferguson DO Attending Provider Active Start: May 15, 2024 End: May 16, 2024 Dr. Devon Ferguson DO Emergency Provider Active Start: May 15, 2024 End: May 16, 2024 Team Status: Inactive Member Role Status Dates Dr. Mendez Velasco DO Attending Provider Active Start: June 28, 2024 End: June 28, 2024 Dr. Pj Montana MD Primary Care Provider Active Start: June 28, 2024 End: June 28, 2024 Dr. Pj Montana MD Referring Provider Active Start: June 28, 2024 End: June 28, 2024 Team Status: Inactive Member Role Status Dates Dr. Pj Montana MD Primary Care Provider Active Start: July 21, 2024 End: July 21, 2024 Dr. Pj Montana MD Referring Provider Active Start: July 21, 2024 End: July 21, 2024 Maksim Gann NP, FLARE MAKER-C Attending Provider Active S tart: July 21, 2024 End: July 21, 2024 Team Status: Inactive Member Role Status Dates Dr. Pj Montana MD Primary Care Provider Active Start: July 31, 2024 End: July 31, 2024 Dr. Pj Montana MD Referring Provider Active Start: July 31, 2024 End: July 31, 2024 MEY Velarde Attending Provider Active Start: July 31, 2024 End: July 31, 2024 Team Status: Inactive Member Role Status Dates Dr. Pj Montana MD Primary Care Provider Active Start: July 31, 2024 End: July 31, 2024 REBECCA SantosC Attending Provider Active Start: July 31, 2024 End: July 31, 2024 MEY Velarde Referring Provider Active Start: July 31, 2024 End: July 31, 2024 Team Status: Active Member Role Status Dates Dr. Pj Montana MD Primary Care Provider Active Start: August 02, 2024 MEY Velarde Attending Provider Active Start: August 02, 2024 MEY Velarde Referring Provider Active Start: August 02, 2024 Team Status: Inactive Member Role Status Dates Dr. Pj Montana MD Primary Care Provider Active Start: August 02, 2024 End: August 02, 2024 MEY Velarde Attending Provider Active Start: August 02, 2024 End: August 02, 2024 MEY Velarde Referring Provider Active Start: August 02, 2024 End: August 02, 2024 Team Status: Inactive Member Role Status Dates Dr. Pj Montana MD Primary Care Provider Active Start: August 23, 2024 End: August 23, 2024 MEY Velarde Attending Provider Active Start: August 23, 2024 End: August 23, 2024 MEY Velarde Referring Provider Active Start: August 23, 2024 End: August 23, 2024 Team Status: Inactive Member Role Status Dates Dr. Pj Montana MD Primary Care Provider Active Start: September 06, 2024 End: September 06, 2024 Dr. Pj Montana MD Referring Provider Active Start: September 06, 2024 End: September 06, 2024 MEY Velarde Attending Provider Active Start: September 06, 2024 End: September 06, 2024 Source Comments (unrecognize d section and content) In the event this informatio n is protected by the Federal Confidentiality of Alcohol and Drug Abuse Patient Records regulations: The Federal rules restrict any use of the information to criminally investigate or prosecute any alcohol or drug abuse patient.[facility] the event this information is protected by the Federal Confidentiality of Alcohol and Drug Abuse Patient Records regulations: The Federal rules restrict any use of the information to criminally investigate or prosecute any alcohol or drug abuse patient.[facility] Reason for Visit (unrecogniz ed section and content) Reason Comments Received Outside Medical Records Reason Comments Outside Lab Results [facility] Specialty Diagnoses / Procedures Referred By Naima martins Referred To Contact Endocrinology Diagnoses Sucrase-isomaltase deficiency Hyperinsulinemia Elevated cortisol level Kermit Ko, NADIA [address] [place] [address] Kermit Ko CNP [address] [address] Referral ID Status Reason Start Date Expiration Date V isits Requested Visits Authorized [id number] Closed Specialty Services Required/Jaylene ent's Best Interest 12/28/2022 12/28/2023 1 1 Reason Comments Elevated Cortisol Reason Comments Elevated cortisol level FOR RECORDS PERTAINING TO PATIENTS WHO ARE OR HAVE BEEN ENROLLED IN A CHEMICAL DEPENDENCY/SUBSTANCEABUSE PROGRAM, SOME INFORMATION MAY BE OMITTED. This clinical summary was aggregated from multiple sources. Caution should be exercised in using it in the provision of clinical care. This summary normalizes information from multiple sources, and as a consequence, information in this document may materially change the coding, format and clinical context of patient data. In addition, data may be omitted in some cases. CLINICAL DECISIONS SHOULD BE BASED ON THE PRIMARY CLINICAL RECORDS. [facility]. provides no warranty or guarantee of the accuracy or completeness of information in this document.
[2024-10-08 04:11] LABS: hCG Titer Quant., Serum < 1 mIU/mL (<9 non-preg)
[2024-10-08 04:14] LABS: Bacteria 0 SEEN /hpf (None Seen); Red Blood Cells-Urine 0 SEEN /hpf (0-5); White Blood Cells 0 SEEN /hpf (0-5)
[2024-10-08 04:18] LABS: Color, Urine Yellow (Yellow); Glucose, Dipstick Normal (Normal); Ketone-Dipstick Negative (Negative); Leukocyte Esterase-Dipstick Negative /ul (Negative); Nitrite-Dipstick Negative (Negative); Occult Blood-Urine Negative /ul (Negative); Protein-Dipstick 15 mg/dl (Negative); Urine Bilirubin Dipstick Negative (Negative); Urine Clarity Clear (Clear); Urine Urobilinogen Normal (Normal)
[2024-10-08 04:28] VITALS: BP 145/87; PULSE 93; RESP 18; O2SAT 98
[2024-10-08 04:50] LABS: Mucous, Urine RARE /hpf (<or=2+); Squamous Epithelial Cells - UA 0-5 SEEN /hpf (5-10)
--- NOTE | 2024-10-08 04:54 | ED.VIS.FEGU ---
HPI HPI - Female History of Present Illness Chief Complaint: Informant: patient and family Narrative Narrative: Patient is a 24-year-old female with past medical history of sarcoidosis. She states that over the past 4 weeks or so she has just felt off. She states she has had intermittent bouts of nosebleeds which is not normal for her and she has been overly nauseous. She states that she has an IUD in place and it has been there since 2020. She states because of the IUD she does not have menstrual cycles. She reports that today she decided to take a test based on her abnormal feelings. She reports it was positive and therefore she contacted [facility] OR COND[facility] PRESS OPERATOR. She states that she was advised to come to the ER and have a ultrasound because there is high concern for an ectopic based on her IUD status. Patient states she does have mild abdominal cramping but there is no vaginal discharge or bleeding PFSH PFS Medical History Allergic dermatitis Hemorrhoids Fatigue Physical exam, pre-employment Wears contact lenses Wears glasses Anxiety Injury of head and neck Non-smoker Congenital sucrase-isomaltase deficiency Seizure disorder IBS (irritable bowel syndrome) Abdominal pain Home Medications ?Medication ?Instructions ?Recorded ?Last Taken ?Type levonorgestrel 20.4 mcg/24 hr (up 1 device intrauterine ONCE 05/02/22 Unknown History to 8 yrs) 52 mg intrauterine device (Liletta) linaclotide 145 mcg capsule 145 mcg PO DAILY 05/12/23 Unknown History (Linzess) hydroxyzine HCl 50 mg tablet 50 mg PO TID 09/21/23 Unknown History sertraline 100 mg tablet 100 mg PO QDAY 09/21/23 Unknown History sacrosidase 8,500 unit/mL oral 2 ml PO 6XD #300 mL 10/19/23 Unknown Rx solution (Sucraid) levothyroxine 88 mcg tablet 88 mcg PO QDAY 04/02/24 Unknown History ondansetron 4 mg disintegrating 4 mg PO TID PRN nausea and 05/16/24 Unknown Rx tablet vomiting #21 tabs fluticasone furoate 200 1 inh inhalation Q24H #30 ea 09/06/24 Unknown Rx mcg/actuation blister powder for inhalation (Arnuity Ellipta) Allergy/AdvReac Type Severity Reaction Status Date / Time Iodinated Contrast Media Allergy Hives Verified 10/08/24 02:29 Family History Grandfather Cancer COPD (chronic obstructive pulmonary disease) Asthma Diabetes Grandmother Cancer CAD (coronary artery disease) Hypertension Mother Cancer cervical precancerous cells Social History Smoking Status: Never smoker Electronic Cigarette Use: not used second hand exposure: No alcohol intake: current alcohol intake frequency: holidays/special occasions only substance use type: does not use ROS ROS ED Constitutional Constitutional ED: Denies chills or fever(s) Eyes Eyes: Denies change in vision ENT ENT ED: Denies sore throat Cardiovascular Cardiovascular: Denies chest pain Respiratory/Chest Respiratory/Chest: Denies cough or dyspnea Gastrointestinal Gastrointestinal: Reports abdominal pain and nausea; Denies diarrhea or vomiting Genitourinary Genitourinary ED: Denies dysuria or hematuria Musculoskeletal Musculoskeletal: Denies myalgias Integumentary Denies rash Neurologic Neurologic: Reports other Details: Positive fatigue ; Denies headache(s) Hematologic/Lymphatic Hematologic/Lymphatic: Denies easy bleeding or easy bruising EXAM Physical Exam Const Vital Signs: 10/08/24 02:28 10/08/24 04:28 10/08/24 05:22 Temperature 98.6 F 98 F Temperature Source Oral Pulse Rate 107 H 93 94 Respiratory Rate 18 18 18 Blood Pressure 135/89 H 145/87 H 153/99 H Blood Pressure Mean 104 106 117 Pulse Ox 99 98 99 Oxygen Delivery Method Room Air Room Air Positive well nourished and well developed General Appearance ED: well developed; Negative for pallor HEENT HEENT Narrative: Normocephalic atraumatic Eyes PERRL and EOMs intact bilaterally General Eye ED: Negative for scleral icterus Neck supple Resp normal respiratory effort and clear to auscultation bilaterally Cardio regular rate and regular rhythm Rate: other Other Details: Heart is regular rate and rhythm without murmurs rubs or gallops Radial and carotid pulses are equal and symmetric GI soft to palpation, non-distended and no masses GI Narrative: Abdomen is soft and nondistended with normal active bowel sounds. There is mild generalized discomfort with palpation without voluntary guarding or rigidity. No pulsatile mass or fluid wave. No organomegaly noted. No fundus palpated Auscultation: normoactive bowel sounds Palpation: soft Back/Spine no CVA tenderness Extremity normal to inspection and full ROM Extremity Narrative: No asymmetric edema no pitting edema negative Homans' sign bilaterally Neuro oriented x3, CN's II-XII intact bilaterally and no sensory deficits noted Sensorium / Orientation: alert Motor Exam: strength 5/5 throughout Psych mental status grossly normal Skin no rashes or lesions noted and no wounds General Skin Exam: Negative for jaundice or pallor MDM MDM MDM Narrative Medical decision making narrative: Patient presented to the ER slightly hypertensive but otherwise with stable vitals. She reported having IUD in place for multiple years with lack of menstrual cycle secondary to it. She reported that her home test was positive and with high concern for an ectopic if she truly is with the IUD I do agree with [facility] OR CONDENSER PRESS OPERATOR that testing with ultimately a ultrasound needs to be performed. The patient's quantitative hCG value is less than 1 indicating she is not . Urine sample shows no sign of infection and labs revealed no leukocytosis or left shift to suggest infectious process other. Transvaginal ultrasound revealed the IUD to be in proper position and there is no signs of ectopic . Therefore at this time the patient has a negative serum test and ultrasound correlates with this without secondary changes to suggest a missed ectopic. Therefore do not feel there is need for further evaluation at this time and patient is otherwise safe for discharge History & Record Review Discussion w/independent historian: Patient and Family Lab Data Attestation: I reviewed the patient's lab results. Labs: Laboratory Results - last 24 hr 10/08/24 10/08/24 10/08/24 02:51 03:06 04:10 WBC 7.2 RBC 4.29 Hgb 13.2 Hct 37.7 MCV 87.9 MCH 30.8 MCHC 35.0 RDW Std Deviation 38.2 RDW Coeff of Etta 11.9 Plt Count 290 MPV 10.5 Immature Gran % (Auto) 0.300 Neut % (Auto) 66.4 Lymph % (Auto) 26.2 [place] % (Auto) 6.5 Eos % (Auto) 0.3 Baso % (Auto) 0.3 Absolute Neuts (auto) 4.8 Absolute Lymphs (auto) 1.89 Nucleated RBC % 0 Sodium 139 Potassium 4.3 Chloride 103 Carbon Dioxide 22.4 Anion Gap 14 BUN 12 Creatinine 0.80 Estim Creat Clear Calc 140.30 Est GFR (MDRD) Non-Af 105 BUN/Creatinine Ratio 15.0 Glucose 92 Calcium 9.7 HCG, Quant < 1 Urine Color Yellow Urine Clarity Clear Urine pH 7.0 Ur Specific [place] 1.010 Urine Protein 15 H Urine Glucose (UA) Normal Urine Ketones Negative Urine Occult Blood Negative Urine Nitrite Negative Urine Bilirubin Negative Urine Urobilinogen Normal Ur Leukocyte Esterase Negative Urine RBC 0 SEEN Urine WBC 0 SEEN Ur Squamous Epith Cells 0-5 SEEN Urine Bacteria 0 SEEN Urine Mucus RARE Blood Type Cancelled O POSITIVE Discharge Plan Triage Chief Complaint: ED Provider: Devon Ferguson Dx/Rx/DC Orders Clinical Impression: Nonspecific abdominal pain, Sarcoidosis Instructions: Abdominal Pain Prescriptions: No Action Liletta 20.4 mcg/24 hrs (8 yrs) 52 mg intrauterine device 1 device intrauterine ONCE Rx Instructions: as a single dose sertraline 100 mg tablet 100 mg PO QDAY hydroxyzine HCl 50 mg tablet 50 mg PO TID Linzess 145 mcg capsule 145 mcg PO DAILY Patient Comments: TAKE 1 CAPSULE BY MOUTHAONCE DAILY levothyroxine 88 mcg tablet 88 mcg PO QDAY Arnuity Ellipta 200 mcg/actuation blister with device 1 inh inhalation Q24H Qty: 30 2RF ondansetron 4 mg tablet,disintegrating 4 mg PO TID PRN (Reason: nausea and vomiting) Qty: 21 0RF Sucraid 8,500 unit/mL solution 2 ml PO 6XD Qty: 300 11RF Rx Instructions: must administer with a meal/food Primary Care Provider: Pj Gregory Referrals: Nina Leonardo DO [Med Staff - Active Staff] - Pj Gregory MD [Primary Care Provider] - Activity Restrictions/Additional Instructions: Your marker was less than 1 today. Your ultrasound did not show any signs of ectopic . Follow-up with [facility] OR CONDENSER PRESS OPERATOR for repeat evaluation and if you develop increasing pain or vaginal bleeding or any further concerns please return to the hospital for repeat evaluation. Print Language: Micronesian Disposition Disposition: Home, Self Care Discharge Date/Time: 10/08/24 05:34
[2024-10-08 05:00] LABS: Anion Gap 14 (5-15); BUN 12 mg/dL (4-19); Calcium,Total 9.7 mg/dL (7.6-11.0); Carbon Dioxide 22.4 mmol/L (21.0-32.0); Chloride 103 mmol/L (98-108); EST Glomerular Filtration Rate 105 (>60); Glucose 92 mg/dL (70-99); Potassium 4.3 mmol/L (3.3-5.1); Sodium Level 139 mmol/L (133-145)
[2024-10-08 05:22] VITALS: BP 153/99; PULSE 94; RESP 18; TEMP 36.6; O2SAT 99
== END 2024-10-08 05:34 | disposition home or self-care (01) ==
PROVIDERS: Emergency Provider Emergency Medicine; PCP Family Medicine; Visit Provider Emergency Medicine
DX: R10.9 Unspecified abdominal pain (principal); D86.9 Sarcoidosis, unspecified; Z97.5 Presence of (intrauterine) contraceptive device; Z79.899 Other long term (current) drug therapy
CPT/HCPCS: 76817; 80048; 81001; 84702; 85025; 86900; 86901; 99282; A4216

== ENCOUNTER → 2024-12-05 | Outpatient (CLI) | payer OTHER, SELFPAY | END | disposition home or self-care (01) | LOC: LABSPEC 11:51 | PROVIDERS: PCP Family Medicine; Visit Provider Advanced Practice Midwife | DX: Z12.4 Encounter for screening for malignant neoplasm of cervix (principal) | CPT/HCPCS: 88175; G0145 ==

== ENCOUNTER 2025-02-05 16:38 | Emergency (ER) | payer OTHER, SELFPAY ==
[2025-02-05 16:39] VITALS: BP 137/79; PULSE 110; RESP 16; TEMP 37.6; O2SAT 97; BMI 39.6
[2025-02-05 16:41] VITALS: BP 137/79; PULSE 110; RESP 16; TEMP 37.6; O2SAT 97
[2025-02-05 17:17] LABS: Mucous, Urine 0 SEEN /hpf (<or=2+); Red Blood Cells-Urine 0 SEEN /hpf (0-5)
[2025-02-05 17:20] LABS: Color, Urine Yellow (Yellow); Glucose, Dipstick Normal (Normal); Ketone-Dipstick Negative (Negative); Leukocyte Esterase-Dipstick 25 /ul (Negative); Nitrite-Dipstick Negative (Negative); Occult Blood-Urine Negative /ul (Negative); Protein-Dipstick 15 mg/dl (Negative); Specific Gravity, Urine 1.015 (1.002-1.030); Urine Bilirubin Dipstick Negative (Negative)
[2025-02-05 17:21] LABS: Hematocrit 42.2 % (37-47); Hemoglobin 14.8 g/dL (12.0-15.0); Immature Granulocytes Count 0.010 X10^3/uL (0.0-0.0); Mean Corp Hgb Conc 35.1 g/dL (32-36); Mean Corpuscular Volume 88.3 fL (81-99); Mean Platelet Vol. 10.4 fl (6.2-12.0); NRBC Flagged by Analyzer 0 % (0-5); Platelet Count 216 K/mm3 (150-450); RBC Distribution Width CV 12.1 % (11.6-14.6); RBC Distribution Width SD 39.2 fl (35.1-43.9); Red Blood Count 4.78 M/mm3 (4.2-5.4); White Blood Count 3.4 K/mm3 (4.4-11.0)
--- NOTE | 2025-02-05 17:21 | CT_ITS ---
PROCEDURE: ABDOMEN/PELVIS WITHOUT CONT 02/05/2025 REASON FOR EXAM: DIARRHEA, PAIN TECHNIQUE: Procedure Code: [id number] Modality: CT Procedure: ABDOMEN/PELVIS WITHOUT CONT Noncontrast technique limits evaluation of the abdominal and pelvic viscera. Coronal and Sagittal reconstruction series were provided. One or more dose reduction techniques were used (e.g., Automated exposure control, adjustment of the mA and/or kV according to patient size, use of iterative reconstruction technique). RADIATION DOSE SUMMARY: DLP: 1140 mGycm COMPARISON: None FINDINGS: Multiple clusters of pulmonary nodules along the left base fissure measuring up to 1.5 x 1.4 cm best seen on series 2, image 6. Scattered smaller additional pulmonary nodules noted along this fissure. No large focal consolidations. The liver, spleen, pancreas, and both adrenal glands demonstrate no acute findings. The gallbladder is unremarkable. The stomach is unremarkable. The small bowel loops are not dilated. The appendix is normal. No colonic obstruction. There is no free air or significant free fluid. The kidneys are unremarkable. The urinary bladder is partially distended. The pelvic structures are intact. There is no solid pelvic mass. No significant lymphadenopathy. The aorta and IVC demonstrate no acute findings. Visualized osseous structures demonstrate no acute abnormality. CT/Abdomen/Pelvis without Cont IMPRESSION: No acute intra-abdominal process. Multiple clusters of pulmonary nodules along the left base fissure measuring up to 1.5 x 1.4 cm best seen on series 2, image 6. Scattered smaller additional pulmonary nodules noted along this fissure. Consi leeann chest CT for further evaluation to assess for additional nodules. Reading Location: [id number]
--- NOTE | 2025-02-05 17:21 | ED.VIS.GI ---
HPI HPI - GI History of Present Illness Chief Complaint: Abd Pain Narrative Narrative: 24-year-old female past medical history of sarcoidosis, no prior abdominal surgeries presents with nausea, vomiting, diarrhea, and periumbilical abdominal pain that she has had since Monday evening. This was approximately 4 days ago. She states it started with nausea and vomiting, she developed loose stool. She has had 4-5 episodes of diarrhea in the last 24 hours. She describes a dull achy pain that is constant above her umbilicus. She had a low-grade fever as high as 101 degrees but is taking ibuprofen. She feels her abdominal pain is getting worse. No exacerbating or alleviating factors. No dysuria or hematuria. [facility] Medical History Contraceptive management Allergic dermatitis Hemorrhoids Fatigue Physical exam, pre-employment Wears contact lenses Wears glasses Anxiety Injury of head and neck Non-smoker Congenital sucrase-isomaltase deficiency Seizure disorder IBS (irritable bowel syndrome) Abdominal pain Home Medications ?Medication ?Instructions ?Recorded ?Last Taken ?Type levonorgestrel 20.4 mcg/24 hr (up 1 device intrauterine ONCE 05/02/22 Unknown History to 8 yrs) 52 mg intrauterine device (Liletta) linaclotide 145 mcg capsule 145 mcg PO DAILY 05/12/23 Unknown History (Linzess) hydroxyzine HCl 50 mg tablet 50 mg PO TID 09/21/23 Unknown History sertraline 100 mg tablet 100 mg PO QDAY 09/21/23 Unknown History levothyroxine 88 mcg tablet 88 mcg PO QDAY 04/02/24 Unknown History ondansetron 4 mg disintegrating 4 mg PO TID PRN nausea and 05/16/24 Unknown Rx tablet vomiting #21 tabs sacrosidase 8,500 unit/mL oral 2 ml PO 6XD #300 mL 10/28/24 Unknown Rx solution (Sucraid) topiramate 50 mg tablet 50 mg PO .COMPLEX #60 tabs 11/28/24 Unknown Rx albuterol sulfate 90 mcg/actuation 2 inh inhalation Q4-6H PRN 12/10/24 Unknown Rx aerosol inhaler shortness of breath or wheezing #8.5 grams fluticasone furoate 200 1 inh inhalation Q24H #30 ea 12/10/24 Unknown Rx mcg/actuation blister powder for inhalation (Arnuity Ellipta) ondansetron 4 mg disintegrating 4 mg PO Q8H PRN PRN Nausea #15 tabs 02/05/25 Unknown Rx tablet Allergy/AdvReac Type Severity Reaction Status Date / Time Iodinated Contrast Media Allergy Intermediate Hives Verified 02/05/25 16:39 Family History Grandfather Cancer COPD (chronic obstructive pulmonary disease) Asthma Diabetes Grandmother Cancer CAD (coronary artery disease) Hypertension Mother Cancer cervical precancerous cells Social History adopted: No household members: family housing: house number of children: 0 current occupational status: employed current occupation: [employer] history of recent travel: Yes ([place]) out of state: Yes out of country: No sexually active: Yes Smoking Status: Never smoker Electronic Cigarette Use: not used second hand exposure: No alcohol intake: current alcohol intake frequency: holidays/special occasions only substance use type: does not use caffeine: Yes Type: coffee and other eating out: 4 or more times/week during the past year weight has: remained stable what type of physical activity do you participate in: none bairon/congregation: None seatbelt use: always do you feel safe at home: Yes additional social history: [employer] ROS ED ROS Narrative Review of systems is positive for nausea and vomiting, periumbilical/above umbilicus pain. Positive diarrhea. Positive fever, no chills. No exacerbating or alleviating factors. No prior abdominal surgeries. EXAM Physical Exam Narrative Exam Narrative: Afebrile. Vital signs noted. Nontoxic-appearing. Cardiovascular examination reveals mild tachycardia. Lungs are clear to auscultation bilaterally. Abdomen is soft with tenderness to palpation in the periumbilical/above the umbilicus without guarding or rebound. No right upper quadrant or right lower quadrant pain. No obturator or Rovsing sign. Neurological examination is nonfocal, nonlateralizing. Const Vital Signs: 02/05/25 16:39 02/05/25 16:41 02/05/25 17:41 Temperature 99.6 F H 99.6 F H 97.9 F Temperature Source Oral Oral Oral Pulse Rate 110 H 110 H 95 Respiratory Rate 16 16 15 Blood Pressure 137/79 H 137/79 H 133/79 H Blood Pressure Mean 98 98 97 Pulse Ox 97 97 98 Oxygen Delivery Method Room Air Room Air Room Air 02/05/25 19:00 02/05/25 19:00 Temperature 98.6 F Temperature Source Oral Pulse Rate 78 78 Respiratory Rate 16 89 H Blood Pressure 128/76 H 128/78 H Blood Pressure Mean 93 94 Pulse Ox 98 100 Oxygen Delivery Method Room Air Room Air MDM MDM MDM Narrative Medical decision making narrative: Differential diagnosis includes but not limited to gastroenteritis versus pancreatitis versus diverticulitis versus cystitis. I have low suspicion for obstruction. I did review her prior problem list and listed is irritable bowel syndrome. She may have IBS with diarrhea. Protocol laboratory work was entered. She does have allergy to iodinated contrast media so CT will be obtained without contrast. She was administered morphine, ondansetron, and a bolus of normal saline. I reviewed her laboratory work and she is neutropenic at 3.4 but when compared to prior labs she has been neutropenic intermittently in the past. Hemoglobin 14.8, hematocrit 42.2, platelet count normal at 216. CMP is grossly unremarkable including glucose of 93 BUN normal at 11 and creatinine 0.76. Lipase normal at 28. Serum is negative. Urinalysis negative for infection with 0-5 white cells. I do not feel antibiotics are indicated. I reviewed the radiology report of the CT of the abdomen and pelvis and there is no acute intra-abdominal process, no obstruction or inflammatory process. There were noted pulmonary nodules. Patient's mother is at the bedside and she and the patient are aware that she has had pulmonary nodules in the past. Outpatient follow-up recommended. Patient does have history of irritable bowel syndrome and sees Dr. Velasco. I will write her for few Zofran ODT's and she can follow-up with gastroenterology regarding her IBS. She states usually she has constipation and is on Linzess. I feel she can be discharged to follow-up. Return instructions were reviewed. Disposition is discharged home in stable condition. History & Record Review Discussion w/independent historian: Patient Additional record(s) reviewed:: Prior labs (Intermittent neutropenia) Lab Data Attestation: I reviewed the patient's lab results. Labs: Laboratory Results - last 24 hr 02/05/25 02/05/25 16:45 17:13 WBC 3.4 L RBC 4.78 Hgb 14.8 Hct 42.2 MCV 88.3 MCH 31.0 MCHC 35.1 RDW Std Deviation 39.2 RDW Coeff of [place] 12.1 Plt Count 216 MPV 10.4 Immature Gran % (Auto) 0.300 Neut % (Auto) 66.4 Lymph % (Auto) 21.7 [place] % (Auto) 10.7 H Eos % (Auto) 0.6 Baso % (Auto) 0.3 Absolute Neuts (auto) 2.2 Absolute Lymphs (auto) 0.73 L Nucleated RBC % 0 Sodium 137 Potassium 3.9 Chloride 105 Carbon Dioxide 21.3 Anion Gap 11 BUN 11 Creatinine 0.76 Estim Creat Clear Calc 145.58 Est GFR (MDRD) Non-Af 113 BUN/Creatinine Ratio 14.4 Glucose 93 Calcium 9.1 Total Bilirubin 0.31 AST 21 ALT 30 Alkaline Phosphatase 83 Total Protein 7.1 Albumin 4.2 Globulin 2.9 Albumin/Globulin Ratio 1.5 Lipase 28 Serum , Qual NEGATIVE Urine Color Yellow Urine Clarity Clear Urine pH 6.0 Ur Specific [place] 1.015 Urine Protein 15 H Urine Glucose (UA) Normal Urine Ketones Negative Urine Occult Blood Negative Urine Nitrite Negative Urine Bilirubin Negative Urine Urobilinogen Normal Ur Leukocyte Esterase 25 H Urine RBC 0 SEEN Urine WBC 0-5 SEEN Ur Squamous Epith Cells 5-10 SEEN Ur Transition Epith Cell 0-5 SEEN Urine Bacteria 0 SEEN Urine Mucus 0 SEEN Radiography Diagnostic Testing: Clinical Impression(s) from Imaging Studies Abdomen/Pelvis CT 02/05/25 17:21 IMPRESSION: No acute intra-abdominal process. Multiple clusters of pulmonary nodules along the left base fissure measuring up to 1.5 x 1.4 cm best seen on series 2, image 6. Scattered smaller additional pulmonary nodules noted along this fissure. Consider chest CT for further evaluation to assess for additional nodules. Reading Location: [facility] Discharge Plan Triage Chief Complaint: Abd Pain ED Provider: Vernon Avalos Dx/Rx/DC Orders Clinical Impression: Abdominal pain, Diarrhea, Nausea, IBS (irritable bowel syndrome) Instructions: ED Abdominal Pain Unkn Cause Fem Prescriptions: New ondansetron 4 mg tablet,disintegrating 4 mg PO Q8H PRN PRN (Reason: Nausea) Qty: 15 0RF No Action Liletta 20.4 mcg/24 hrs (8 yrs) 52 mg intrauterine device 1 device intrauterine ONCE Rx Instructions: as a single dose sertraline 100 mg tablet 100 mg PO QDAY hydroxyzine HCl 50 mg tablet 50 mg PO TID Linzess 145 mcg capsule 145 mcg PO DAILY Patient Comments: TAKE 1 CAPSULE BY MOUTHAONCE DAILY levothyroxine 88 mcg tablet 88 mcg PO QDAY topiramate 50 mg tablet 50 mg PO .COMPLEX Qty: 60 4RF Rx Instructions: Take 1/2 tablet orally twice daily for 1 week then 1 tablet twice daily thereafter. Arnuity Ellipta 200 mcg/actuation blister with device 1 inh inhalation Q24H Qty: 30 11RF albuterol sulfate 90 mcg/actuation HFA aerosol inhaler 2 inh inhalation Q4-6H PRN (Reason: shortness of breath or wheezing) Qty: 8.5 3RF ondansetron 4 mg tablet,disintegrating 4 mg PO TID PRN (Reason: nausea and vomiting) Qty: 21 0RF Sucraid 8,500 unit/mL solution 2 ml PO 6XD Qty: 300 11RF Rx Instructions: must administer with a meal/food Primary Care Provider: Pj Gregory Referrals: Pj Gregory MD [Primary Care Provider, Family Practice] Friend,DO Mendez [Med Staff - Active Staff, Gastroenterology] - As soon as possible Activity Restrictions/Additional Instructions: Follow-up with your classified copy control clerk as soon as possible. Zofran as needed for nausea. Return with fever, increased pain, new or worsening symptoms. Print Language: Danish Disposition Disposition: Home, Self Care
[2025-02-05 17:35] LABS: Internal QC Validated? YES +Cl - CLEAR BKGD; Pregnancy, Serum, hCG Quali. NEGATIVE Negative; Record Kit Lot#, Serum Preg. 980607
[2025-02-05 17:41] VITALS: BP 133/79; PULSE 95; RESP 15; TEMP 36.6; O2SAT 98
[2025-02-05 17:46] LABS: Squamous Epithelial Cells - UA 5-10 SEEN /hpf (5-10); Transitional Epithelial - Ur 0-5 SEEN /hpf (0-5)
[2025-02-05] MEDS: 0.9% Normal Saline (1000mL) 1,000 ML 999 ML IV (17:56)
[2025-02-05 18:27] LABS: AST(SGOT) 21 U/L (<=31); Alanine Aminotransfer ALT/SGPT 30 U/L (<=34); Albumin, Serum 4.2 g/dL (3.5-5.0); Alkaline Phosphatase 83 U/L (35-104); Anion Gap 11 (5-15); BUN 11 mg/dL (4-19); BUN/Creat Ratio 14.4 RATIO (10-20); Calcium,Total 9.1 mg/dL (7.6-11.0); Carbon Dioxide 21.3 mmol/L (21.0-32.0); Chloride 105 mmol/L (98-108); Estimated Creatinine Clearance 145.58 ml/min (50-250); Globulin 2.9 g/dL (2.2-4.2); Glucose 93 mg/dL (70-99); Lipase 28 U/L (13-75); Potassium 3.9 mmol/L (3.3-5.1)
[2025-02-05 19:00] VITALS: BP 128/76; BP 128/78; PULSE 78; RESP 16; RESP 89; TEMP 37; O2SAT 100; O2SAT 98
[2025-02-05 20:02] VITALS: BP 120/74; PULSE 70; RESP 19; TEMP 37; O2SAT 100
== END 2025-02-05 20:03 | disposition home or self-care (01) ==
PROVIDERS: Emergency Provider Emergency Medicine; PCP Family Medicine; Visit Provider Emergency Medicine
DX: R10.33 Periumbilical pain (principal); R11.0 Nausea; F41.9 Anxiety disorder, unspecified; Z79.899 Other long term (current) drug therapy; K58.9 Irritable bowel syndrome, unspecified; R19.7 Diarrhea, unspecified
CPT/HCPCS: 74176; 80053; 81001; 83690; 84703; 85025; 96361; 96374; 96375; 99283; J2405